=== PATIENT | female | born 1940 | race Caucasian/White ===

== ENCOUNTER → 2022-04-13 15:15 | Outpatient (BNVA) | payer MEDICARE, OTHER, SELFPAY | PROVIDERS: PCP Internal Medicine; Visit Provider Psychiatry & Neurology Psychiatry | DX: F33.41 Major depressive disorder, recurrent, in partial remission (principal); M54.9 Dorsalgia, unspecified | CPT/HCPCS: 90833; Q3014 ==

== ENCOUNTER → 2022-06-08 15:25 | Outpatient (BNVA) | payer MEDICARE, OTHER, SELFPAY | PROVIDERS: PCP Internal Medicine; Visit Provider Psychiatry & Neurology Psychiatry | DX: F33.41 Major depressive disorder, recurrent, in partial remission (principal); M51.16 Intervertebral disc disorders with radiculopathy, lumbar region | CPT/HCPCS: 90833; Q3014 ==

== ENCOUNTER → 2022-08-28 12:59 | Outpatient (BNVA) | payer MEDICARE, OTHER, SELFPAY | PROVIDERS: PCP Internal Medicine; Visit Provider Physician Assistant | DX: M48.061 Spinal stenosis, lumbar region without neurogenic claudication (principal) | CPT/HCPCS: 99212 ==

== ENCOUNTER → 2022-09-01 14:20 | Outpatient (BNVA) | payer MEDICARE, OTHER, SELFPAY | PROVIDERS: PCP Internal Medicine; Visit Provider Psychiatry & Neurology Psychiatry | DX: F32.A Depression, unspecified (principal) | CPT/HCPCS: 90833; Q3014 ==

== ENCOUNTER 2023-01-22 15:15 | Outpatient (AMB) | payer MEDICARE, OTHER, SELFPAY ==
--- NOTE | 2023-01-22 12:55 | A.OFFPSYCH_ITS ---
Intake Intake Visit Reasons: Depression Medication List - Last Reconciled 01/22/23 by Bashir Bee MD bupropion HCl 100 mg PO DAILY 90 days carvedilol 25 mg PO BID dexlansoprazole 30 mg PO DAILY diltiazem HCl 360 mg PO DAILY escitalopram oxalate 5 mg PO DAILY furosemide 20 mg PO BID levothyroxine 125 mcg PO DAILY rosuvastatin 10 mg PO DAILY tramadol 50 mg PO BID PRN HPI- Psychiatric Chief Complaint: Depression HPI Narrative: Pt has been doing quite well emotionally number of physical ailments neuropathy nellie lopez does have pulm htn but has felt quite supported by her community. Wishes someone to bring her to doctor's appointments she feels accepted by her rastafari which she had gone to an extended period of time and feels connected Levophed appreciated. She continues on low-dose escitalopram Wellbutrin she has not had a clinical depressive episode and has been managing emotionally her physical difficulties Past Psychiatric History: Past history of recurrent depression for many years. Has been generally stable for the past number of years use to see Dr. Newman for medication management and Dr. Oscar Llamas for psychotherapy Mental Status Exam Mental Status Exam Patient Appearance: Well Grooomed Patient Orientation: Person, Place, Time and Situation Level of Consciousness: Awake and Appropriate Patient Behavior: Appropriate Mood Description: Calm and Appropriate Affect Description: Calm and Appropriate Patient Cognition Impaired: No Ability to Follow Directions: Good Speech Pattern: Clear Memory Description: Intact Hallucinations: None Delusions: Not Present Thought Process: Intact and Goal Oriented Thought Content: positive for Goal Oriented, negative for Suicidal Ideation or negative for Homicidal Ideation Judgement: Good Judgement and Insight: Patient with much improved mood full affect Telehealth Telehealth Location of provider rendering services: practice address Location of patient: address on file Patient Identification confirmed using: Name, : Yes Telehealth method: video Patient verbally consented to treatment: Yes Patient verbally consented to billing insurance company: Yes Minutes spent on Phone/Video with Pt.: 24 Assessment and Plan Assessment & Plan (1) Major depressive disorder, recurrent episode, in partial remission: Status: Acute Code(s): F33.41 - Major depressive disorder, recurrent, in partial remission (2) Radiculopathy due to disorder of intervertebral disc of lumbar spine: Status: Acute Code(s): M51.16 - Intervertebral disc disorders with radiculopathy, lumbar region Plan Patient doing quite well full affect feels cared for able to enjoy things good motivation and energy no complaints of side effects feeling quite cared for by support system and rastafari. His dealing with pulmonary hypertension Medications: Refilled bupropion HCl 100 mg PO DAILY 90 days 90 tabs 1RF escitalopram oxalate 5 mg PO DAILY 90 tabs 1RF Counseling and coordination of Care Pt. Self Management counseling: Breathing Medication management counseling: Effectiveness Diagnosis and Prognosis Counseling: Accuracy of diagnosis, Impact of diagnosis on life functions and Adequacy of current interventions Details: I spent [] minutes reviewing the record, seeing the patient and documenting in the medical record. Counseling provided to the patient/caregiver as outlined below. Addressed patient/caregiver concerns regarding current medication regime including effective adherence. Addressed patient/caregiver concerns regarding diagnosis and prognosis including accuracy of diagnosis, prognosis over time, impact of diagnosis. Addressed patient/caregiver concerns regarding impact of recent stressors. [facility] Medical History (Updated 08/28/22 @ 13:32 by CAROLINA Benton) Atrial fibrillation and flutter Major depressive disorder, recurrent episode, in partial remission Social History: Patient lives alone she is retired dealing with multiple medical issues has sister supports from the rastafari /neighbor Substance History: none Trauma History: none Coding Level of Care Code Est Pt Level 4 (67230) Diagnoses Major depressive disorder, recurrent episode, in partial remission F33.41 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
== END 2023-01-22 15:15 | disposition home or self-care (01) ==
LOC: HO.HOP 15:15
PROVIDERS: PCP Internal Medicine; Visit Provider Psychiatry & Neurology Psychiatry
DX: F33.41 Major depressive disorder, recurrent, in partial remission (principal); M51.16 Intervertebral disc disorders with radiculopathy, lumbar region
CPT/HCPCS: 99214

== ENCOUNTER → 2023-01-22 15:15 | Outpatient (BNVA) | payer MEDICARE, OTHER, SELFPAY | PROVIDERS: PCP Internal Medicine; Visit Provider Psychiatry & Neurology Psychiatry | DX: F33.41 Major depressive disorder, recurrent, in partial remission (principal); M51.16 Intervertebral disc disorders with radiculopathy, lumbar region | CPT/HCPCS: 99212 ==

== ENCOUNTER 2023-06-22 13:36 | Outpatient (AMB) | payer MEDICARE, OTHER, SELFPAY ==
--- NOTE | 2023-06-22 13:47 | A.SPINEOV_ITS ---
Intake Intake Visit Reasons: lower back pain/ sx 07/2022 [facility] Intake Note: Ms. Victoria is here today c/o low back pain. S/p L3-4 Lumbar Laminotomy 08/05/22. 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 Rome for claudicating leg pain. She did well after the surgery was improving, but over the last few months she has developed a severe progressively worsening lower lumbar back ache. The pain goes across her lumbosacral junction region. It does not radiate down her legs. There is a component of buttock pain. She does not have any tingling or numbness in the legs. She has a very hard time even just walking down her hallway. She has not pursued any conservative treatment yet. Her exam is intact. I will order set of x-rays and subsequently an MRI so we can evaluate what is going on. I am wondering if she has not developed some degree of instability after the decompression, which is the reason to justify the x-rays and the MRI. We will see her back once the test is completed. Total amount of time spent in this visit was 20 minutes in discussion of symptoms, ordering imaging and subsequent plan of care Kamran Rome MD,PhD [facility] Orders: Orders XR lumbar spine 4V min Today M54.9 - Dorsalgia, unspecified MR lumbar spine wo con Today M54.9 - Dorsalgia, unspecified Coding Level of Care Code Est Pt Level 3 (43962) Diagnoses Back pain M54.9
== END 2023-06-22 14:08 | disposition home or self-care (01) ==
PROVIDERS: PCP Internal Medicine; Visit Provider Physician Assistant
DX: M54.9 Dorsalgia, unspecified (principal)
CPT/HCPCS: 99213

== ENCOUNTER 2023-06-22 13:36 | Outpatient (REF) | payer MEDICARE, OTHER, SELFPAY ==
--- NOTE | ~2023-06-22 | XR_ITS ---
EXAMINATION: XR LUMBOSACRAL SPINE WITH OBLIQUES CLINICAL INFORMATION: Dorsalgia. COMPARISON: None available. TECHNIQUE: AP and lateral (neutral, flexion and extension) views of the lumbosacral spine are submitted. FINDINGS: There is bony demineralization. Vertebral body heights are normal. There is mild posterior disc space narrowing at L2-L3. At L3-L4, there is marked disc space narrowing, with a 4 mm anterolisthesis. At L4-L5 and L5-S1, there is marked disc space narrowing, with vacuum disc phenomenon. No acute fracture or spondylolisthesis is seen. There is multi-level lumbar spondylosis and facet arthropathy. The paravertebral soft tissues are unremarkable. There are right abdominal surgical clips. There are aortoiliac atherosclerotic calcifications. XR/XR lumbar spine 4V min IMPRESSION: There is multi-level thoracolumbar degenerative disc disease, spondylosis and facet arthropathy. Degenerative disease is most pronounced extending from L3-L4 through L5-S1, where it is marked.
== END 2023-06-22 13:37 | disposition home or self-care (01) ==
LOC: HO.HOSX 13:36
PROVIDERS: PCP Internal Medicine; Visit Provider Physician Assistant
DX: M54.9 Dorsalgia, unspecified (principal)
CPT/HCPCS: 72110; 99212

== ENCOUNTER 2023-07-15 14:01 | Outpatient (AMB) | payer MEDICARE, OTHER, SELFPAY ==
--- NOTE | 2023-07-13 08:58 | HO.SPINEOV ---
Intake Intake Visit Reasons: MRI follow up Intake Note: Ms. Sutton is here today to F/u MRI. Help Desk Operator Required: No Assessment & Plan Assessment & Plan (1) Back pain: Code(s): M54.9 - Dorsalgia, unspecified Plan Mrs Sutton is back today to discuss her ongoing back pain. She had an MRI done at [facility] and is here to discuss the results today. Just to recap, we did an L3-4 decompression on her last year at [facility] with excellent results for her leg pain. She has had a progressive low back pain, which is actually more in the lumbosacral area when she is standing or sitting on a toilet. Getting up from a standing position is very difficult as well. She has no pain down her legs, no tingling or numbness. She tells me that in the morning when she 1st gets going she is okay but by the end of the day she is basically homebound. She can stand for 10 or 15 minutes maybe doing light chores or making dinner and then she will have to sit down or more correctly lay down to make the pain go away. She will have some pain at night when she is turning over but in general the supine position his optimum for her. She does not take any medications for the pain at this time because she takes a lot of medications for other things and really does not want to add more into it. Despite that though she is in a lot of discomfort. On my exam she is demonstrating good strength in the lower extremities but she is very slow to stand up. There is some tenderness over the lumbosacral junction. It seems well below where the incision is on her back. Maybe near the SI joints. She does have positive MARIA DEL CARMEN sign bilaterally I am able to reproduce the pain that she is experiencing during the day with this maneuver. Negative straight leg raise. I reviewed all of her imaging including MRI done at [facility] in 2021 as well as MRI done in 2023. I also reviewed her standing x-rays done here at [facility]. She has a severely collapsed disc at L3-4 with a grade 1 spondylolisthesis. This may be slightly worse than what it was last year before surgery but not significantly so. There is no instability on flexion-extension. She also has a very collapsed disc at L4-5 as well. There is no residual central canal stenosis noted. At this time given the nature and location of her pain I am not sure if I can tie it into the degenerative discs or if this is coming from maybe her SI joints. I was able to reproduce the exact pain that she has standing with MARIA DEL CARMEN testing. Because the surgery to fix the degenerative discs would involve spinal fusion, at her age this can be a significant undertaking and I think it would be meaningful to have her see Dr. Anders to see if he can help us localize the source of the pain. If he can do a series of trial injections in different areas and we can localize it then we can consider offering surgery with more confidence in a positive outcome. I will see her after she has had a chance to go through his evaluation and we can rediscuss options after that. Total amount of time spent in this visit was 20 minutes in discussion of symptoms, lumbar imaging results and subsequent plan of care Kamran Rome MD,PhD [facility] Orders: Referrals Physiatry Referral M54.9 - Dorsalgia, unspecified Coding Level of Care Code Est Pt Level 3 (66892) Diagnoses Back pain M54.9
== END 2023-07-15 16:09 | disposition home or self-care (01) ==
PROVIDERS: PCP Internal Medicine; Visit Provider Physician Assistant
DX: M54.9 Dorsalgia, unspecified (principal)
CPT/HCPCS: 99213

== ENCOUNTER → 2023-07-15 14:01 | Outpatient (BNVA) | payer MEDICARE, OTHER, SELFPAY | PROVIDERS: PCP Internal Medicine; Visit Provider Physician Assistant | DX: M54.9 Dorsalgia, unspecified (principal) | CPT/HCPCS: 99212 ==

== ENCOUNTER 2023-07-28 16:54 | Outpatient (AMB) | payer MEDICARE, OTHER, SELFPAY ==
--- NOTE | 2023-07-28 15:33 | A.OFFPSYCH_ITS ---
Intake Intake Visit Reasons: Depression Medication List - Last Reconciled 07/28/23 by Bashir Bee MD bupropion HCl 100 mg PO DAILY 90 days carvedilol 25 mg PO BID dexlansoprazole 30 mg PO DAILY diltiazem HCl 360 mg PO DAILY escitalopram oxalate 5 mg PO DAILY furosemide 20 mg PO BID levothyroxine 125 mcg PO DAILY rosuvastatin 10 mg PO DAILY tramadol 50 mg PO BID PRN HPI- Psychiatric Chief Complaint: Depression HPI Narrative: Pt has a lot of support with her community has a lot of support OMEGA MORGAN pt may need neuro surg sec to pain had recent mri the pain is getting to pt has more limited fx more difficult will be seeing dr tsai has chronic diarrhea ? unclear reasons dealing with chronic medical prob;ems Past Psychiatric History: Past history of recurrent depression for many years. Has been generally stable for the past number of years use to see Dr. Newman for medication management and Dr. Oscar Llamas for psychotherapy Mental Status Exam Mental Status Exam Patient Appearance: Well Grooomed Patient Orientation: Person, Place, Time and Situation Level of Consciousness: Awake and Appropriate Patient Behavior: Appropriate Mood Description: Calm and Appropriate Affect Description: Calm and Appropriate Patient Cognition Impaired: No Ability to Follow Directions: Good Speech Pattern: Clear Memory Description: Intact Hallucinations: None Delusions: Not Present Thought Process: Intact and Goal Oriented Thought Content: positive for Goal Oriented, negative for Suicidal Ideation or negative for Homicidal Ideation Judgement: Good Judgement and Insight: Patient doing quite well future oriented feels quite blessed by her denominational [facility] who helps take her to appointments and other things that she needs help with Telehealth Telehealth Location of provider rendering services: practice address Location of patient: address on file Patient Identification confirmed using: Name, : Yes Telehealth method: video Patient verbally consented to treatment: Yes Patient verbally consented to billing insurance company: Yes Minutes spent on Phone/Video with Pt.: 24 Assessment and Plan Assessment & Plan (1) Major depression, recurrent, full remission: Status: Acute Code(s): F33.42 - Major depressive disorder, recurrent, in full remission (2) Radiculopathy due to disorder of intervertebral disc of lumbar spine: Status: Acute Code(s): M51.16 - Intervertebral disc disorders with radiculopathy, lumbar region (3) Spondylolisthesis, lumbar region: Status: Acute Code(s): M43.16 - Spondylolisthesis, lumbar region Plan Patient generally doing well on current regimen mood stable on Wellbutrin and escitalopram Feels quite supported by her community and this has been helping her stay stable psychologically grateful future oriented feels blessed by her community continue plan of care Medications: Refilled bupropion HCl 100 mg PO DAILY 90 tabs 1RF 90 days escitalopram oxalate 5 mg PO DAILY 90 tabs 1RF Counseling and coordination of Care Details-Self Mgmt counseling: Patient has some appropriate concerns regarding her difficulty functioning she does feel quite taking care of by her spiritual community and this is quite elevating and nurturing for the patient Diagnosis and Prognosis Counseling: Prognosis over time and Adequacy of current interventions Details-Diagnosis/Prognosis counseling: Patient generally doing quite well despite physical stress we discussed alternatives she wished to continue on antidepressants at present would not want to risk of relapse she is doing quite well interpersonally Details: I spent [38] minutes reviewing the record, seeing the patient and documenting in the medical record. Counseling provided to the patient/caregiver as outlined below. Addressed patient/caregiver concerns regarding current medication regime including effective adherence. Addressed patient/caregiver concerns regarding diagnosis and prognosis including accuracy of diagnosis, prognosis over time, impact of diagnosis. Addressed patient/caregiver concerns regarding impact of recent stressors. [facility] Medical History (Updated 08/15/23 @ 19:28 by Bashir Bee MD) Atrial fibrillation and flutter Major depressive disorder, recurrent episode, in partial remission Social History: Patient lives alone she is retired dealing with multiple medical issues has sister supports from the denominational /neighbor Substance History: none Trauma History: none Coding Level of Care Code Tele Est Pt Level 4 (81915) Diagnoses Major depression, recurrent, full remission F33.42 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 Spondylolisthesis, lumbar region M43.16
== END 2023-07-28 16:55 | disposition home or self-care (01) ==
LOC: HO.HOP 16:54
PROVIDERS: PCP Internal Medicine; Visit Provider Psychiatry & Neurology Psychiatry
DX: F33.42 Major depressive disorder, recurrent, in full remission (principal); M51.16 Intervertebral disc disorders with radiculopathy, lumbar region; M43.16 Spondylolisthesis, lumbar region
CPT/HCPCS: 99214

== ENCOUNTER → 2023-07-28 16:54 | Outpatient (BNVA) | payer MEDICARE, OTHER, SELFPAY | PROVIDERS: PCP Internal Medicine; Visit Provider Psychiatry & Neurology Psychiatry ==

== ENCOUNTER 2023-08-11 11:23 | Outpatient (AMB) | payer MEDICARE, OTHER, SELFPAY ==
--- NOTE | 2023-08-11 11:31 | HO.SPINEOV ---
Intake Intake Visit Reasons: discuss sx Intake Note: Ms. Sutton is here today to discuss Sx Metallurgy Laboratory Technician Required: No Assessment & Plan Assessment & Plan (1) Spondylolisthesis, lumbar region: Code(s): M43.16 - Spondylolisthesis, lumbar region (2) Lumbar stenosis: Code(s): M48.061 - Spinal stenosis, lumbar region without neurogenic claudication Plan Dear colleague, On 3 12/04/2023, I saw for preoperative visit Doreen Sutton. She has a 3-year-old female that is suffering from debilitating neurogenic claudication with the back pain is more pronounced than radicular symptoms. Imaging reviews a grade 2 L3-4 spondylolisthesis and complete disc collapse of L3-4 and L4-5. We went over surgical options. I offered her to minimally invasive approaches, the 1st being an oblique lumbar interbody fusion L3-4 and L4-5 and the 2nd 1 being a transkambin approach. I am leaning more towards an oblique lumbar interbody fusion due to the fact she is 83 and most likely her bone quality is less optimal although a bone scan showed no osteopenia. We described the pros and cons and she wants to proceed. She is tentatively scheduled for 10/12/2023. She will get preoperative clearance from her PCP and migratory game bird biologist. I spent 40 minutes in his consult discussing the surgical plan on the hand of a model and imaging. Jonh Rome MD, PhD Spine Fellowship Trained Neurosurgeon Director, [facility] Coding Level of Care Code Est Pt Level 5 (04460) Diagnoses Spondylolisthesis, lumbar region M43.16 Lumbar stenosis M48.061
== END 2023-08-11 12:21 | disposition home or self-care (01) ==
PROVIDERS: PCP Internal Medicine; Visit Provider Neurological Surgery
DX: M43.16 Spondylolisthesis, lumbar region (principal); M48.061 Spinal stenosis, lumbar region without neurogenic claudication
CPT/HCPCS: 99215

== ENCOUNTER → 2023-08-11 11:23 | Outpatient (BNVA) | payer MEDICARE, OTHER, SELFPAY | PROVIDERS: PCP Internal Medicine; Visit Provider Neurological Surgery | DX: M43.16 Spondylolisthesis, lumbar region (principal); M48.061 Spinal stenosis, lumbar region without neurogenic claudication | CPT/HCPCS: 99212 ==

== ENCOUNTER 2023-09-08 15:10 | Outpatient (AMB) | payer MEDICARE, OTHER, SELFPAY ==
--- NOTE | 2023-09-08 15:41 | HO.SPINEOV ---
Intake Visit Reasons: more questions about sx Intake Note: Ms. Sutton is here because she has more questions about surgery. Director Corporate Communications Required: No Assessment & Plan Assessment & Plan (1) Spondylolisthesis, lumbar region: Code(s): M43.16 - Spondylolisthesis, lumbar region Category: Medical Plan Dear colleague, On 09/08/2023, I saw for preoperative visit Doreen Sutton. She is scheduled to undergo an L3-4 and L4-5 oblique lumbar interbody fusion. She comes into the office with additional questions about the surgery. We made sure that she was cleared preoperatively by the primer inspector. All questions were answered and the patient wrote her answers down. I spent 30 minutes in his consult. Thank you for allowing me take care of your patient. Jonh Rome MD, PhD Spine Fellowship Trained Neurosurgeon Director, [facility] Coding Level of Care Code Est Pt Level 3 (71010) Diagnoses Spondylolisthesis, lumbar region M43.16
== END 2023-09-08 16:32 | disposition home or self-care (01) ==
PROVIDERS: PCP Internal Medicine; Visit Provider Neurological Surgery
DX: M43.16 Spondylolisthesis, lumbar region (principal)
CPT/HCPCS: 99213

== ENCOUNTER → 2023-09-08 15:10 | Outpatient (BNVA) | payer MEDICARE, OTHER, SELFPAY | PROVIDERS: PCP Internal Medicine; Visit Provider Neurological Surgery | DX: M43.16 Spondylolisthesis, lumbar region (principal) | CPT/HCPCS: 99212 ==

== ENCOUNTER 2023-10-12 06:03 | Inpatient (IN) | payer MEDICARE, OTHER, SELFPAY ==
[2023-09-28 10:46] VITALS: BP 147/65; PULSE 62; RESP 18; O2SAT 96; BMI 35.1
--- NOTE | 2023-09-28 11:04 | P.CONAN_ITS ---
Documented by User: Alyssa Burrows NP 10/08/23 12:31 HPI - Anesthesia Eval Consult details Narrative: 83yo F for ?L3-4,L4-5 Oblique Lumbar Interbody Fusion Medically cleared by [facility] preop practice Follows cardiology: pacer in situ for SSS, CAD, [place] with stent 2011, PAF s/p w atchman 2021. Last seen in office 07/27/23, stable without any changes to treatment, asymptomatic, routine 6 month f/u. Follows Renal for CKD St 3. Last office visit 06/2023, stable with obs only Follows [facility] pulmo for pulmonary htn indeterminate etiology, sleep apena No recent illness No CP. CARPIO with walking ~100 yards is at baseline [facility] Active Problems Active Problems: All Active Problems Major depression, recurrent, full remission (Acute) Spondylolisthesis, lumbar region (Acute) Back pain (Acute) Lumbar stenosis (Acute) Radiculopathy due to disorder of intervertebral disc of lumbar spine (Acute) Major depressive disorder, recurrent episode, in partial remission (Acute) Past Medical History Medical History History of cardioversion Diarrhea SOB (shortness of breath) IBS (irritable bowel syndrome) Arthritis Obesity Depression GERD (gastroesophageal reflux disease) Thyroid disease Hyperlipidemia HTN (hypertension) Pulmonary hypertension Sleep apnea Opacity of lung on imaging study Hx of cardiac pacemaker Sick sinus syndrome Bradycardia Atrial tachycardia Presence of Watchman left atrial appendage closure device Myocardial infarction CAD (coronary artery disease) Atrial fibrillation and flutter Major depressive disorder, recurrent episode, in partial remission Family History Family history of problems with anesthesia: No Surgical History Surgical History H/O colonoscopy History of hemorrhoidectomy Hx of total knee replacement Hx of cataract extraction Hx of cholecystectomy Hx of carpal tunnel repair History of back surgery S/P placement of cardiac pacemaker H/O cardiac radiofrequency ablation History of coronary artery stent placement History of Problems with Anesthesia: No Social History Social History Are you a primary manager medicare marketing to a significant other at home: No Do you presently have visiting nurse or other home services: No Patient Tobacco Use Status: Former Tobacco user Use of substances other than those prescribed or required for medical reasons: No Have you been hit, kicked, punched, or otherwise hurt by someone within the past year? If so, by whom?: No Are you DNR?: No Advance Directives: No Advance Directives Information Provided: No Advance Directives on File: No Recently lost weight without trying: No Eating poorly because of decreased appetite: No Nutrition Risks: No Nutritional Risk Patient : No : No Poor oral hygiene: No Meds Allergies Allergy/AdvReac Type Severity Reaction Status Date / Time codeine Allergy Unconscious Verified 10/12/23 06:06 niacin Allergy Redness of Verified 10/12/23 06:06 Skin Sulfa (Sulfonamide Allergy Itching Verified 10/12/23 06:06 Antibiotics) NSAIDS (Non-Steroidal AdvReac Unknown Verified 10/12/23 07:05 Anti-Inflamma Home Medications ?Medication ?Instructions ?Recorded ?Confirmed ?Last Taken ?Type carvedilol 25 mg tablet 25 mg PO BID 04/13/22 09/28/23 10/12/23 History dexlansoprazole 30 mg 30 mg PO DAILY 04/13/22 09/28/23 10/12/23 History capsule,biphase delayed release diltiazem HCl 360 mg 360 mg PO DAILY 04/13/22 09/28/23 Unknown History capsule,extended release 24 hr levothyroxine 125 mcg tablet 125 mcg PO DAILY 04/13/22 09/28/23 10/12/23 History rosuvastatin 10 mg tablet 10 mg PO BEDTIME 04/13/22 09/28/23 Unknown History furosemide 20 mg tablet 20 mg PO DAILY 09/01/22 09/28/23 Unknown History aspirin 81 mg tablet,delayed 81 mg PO BEDTIME 09/27/23 09/28/23 10/06/23 History release calcium carbonate 600 mg-vitamin 2 cap PO BEDTIME 09/27/23 09/28/23 Unknown History D3 10 mcg (400 unit) capsule diphenoxylate-atropine 2.5 2 tab PO QID PRN Diarrhea 09/27/23 09/28/23 Unknown History mg-0.025 mg tablet meclizine 25 mg tablet 25 mg PO DAILY PRN Dizziness Or 09/27/23 09/27/23 Unknown History Vertigo nitroglycerin 0.3 mg sublingual 0.3 mg sublingual Q5M PRN Chest 09/27/23 09/27/23 Unknown History tablet Pain vit A 300 mcg-C 200 mg-E 27 1 tab PO DAILY 09/27/23 09/27/23 Unknown History mg-lutein 2 mg and minerals tablet (Ocuvite with Lutein) acetaminophen 650 mg 1,300 mg PO Q12H 09/28/23 09/28/23 Unknown History tablet,extended release (Arthritis Pain Relief (acetaminophen) ER) amoxicillin 500 mg capsule 2,000 mg PO ONCE 09/28/23 09/28/23 Unknown History lutein 25 mg-zeaxanthin 5 mg 1 cap PO DAILY 09/28/23 09/28/23 10/12/23 History capsule Exam Height,Weight and Vital Signs: Height 5 ft 2 in Weight 87.09 kg Last Vital Signs Pulse 62 09/28/23 10:46 Resp 18 09/28/23 10:46 BP 147/65 H 09/28/23 10:46 Pulse Ox 96 09/28/23 10:46 O2 Del Method Room Air 09/28/23 10:46 Pertinent Lab Results Pertinent Lab Results: Lab Results 09/28/23 09/28/23 Range/Units 11:50 11:52 WBC 6.0 (4.8-10.8) X10*3/uL RBC 4.16 L (4.20-5.50) X10*6/uL Hgb 12.7 (12.0-16.0) g/dl Hct 38.0 (37.0-47.0) % MCV 91.3 (80.0-98.0) fL MCH 30.5 (27.0-33.0) pg MCHC 33.4 (31.0-35.0) g/dl RDW 14.6 (11.0-16.0) % Plt Count 261 (160-400) X10*3/uL MPV 9.8 (9.4-12.3) fL Absolute Nucleated RBC 0.000 (0.0-0.012) X10*3/uL Nucleated RBC % (auto) 0.0 (0.0-0.2) /100WBC Sodium 142 (135-145) mmol/L Potassium 4.5 (3.3-5.1) mmol/L Chloride 108 (96-108) mmol/L Carbon Dioxide 24 (22-29) mmol/L Anion Gap 15 (12-20) BUN 23 H (9-16) mg/dL Creatinine 0.93 (0.5-1.4) mg/dL Estim Creat Clear Calc 46.9 Estimated GFR 58 Random Glucose 106 (60-115) mg/dL Calcium 9.7 (8.4-10.2) mg/dL Blood Type A Positive Antibody Screen NEGATIVE Narrative Narrative: EKG 07/2023 Afib with Freq V-paced complexes Low volt QRS Pacer interrog R heart cath 2022 report on clearance PFT 2020 report on clearance ECHO 2022 Nml LA Conc hypertrophic LV. Nml regional wall motion. EF 65%. Pt with signif diastolic dysfunction with elevated LA filling presure Pacer lead in right heart Nml RV size and systolic function Dilated RA Trileaflet aorta valve, mild thickening, mild stenosis. No insufficiency Moderate mitral insufficiency Severe tricuspid insufficiency with evidence of significant pulmo htn Pulmo insufficiency is mild C/w 2020 PASP is markedly increased PASP from 50-60 to >70 Airway Mallampati Class: II TM Dist: >3cm Neck ROM: Full Loose/Missing/Broken Teeth: No ([place] x 1) Heart: RRR +M Lungs: CTAB Assessment and Plan Assessment Anesthesia Assessment: Anesthesia Plan Discussed (Discussed increased risk r/t pulmo htn ) and PAT Visit Final Anesthetic Review Family History of Problems with Anesthesia: No History of Problems with Anesthesia: No Documented by User: María Ritchie MD 10/12/23 08:18 [facility] Past Medical History Medical History History of cardioversion Diarrhea SOB (shortness of breath) IBS (irritable bowel syndrome) Arthritis Obesity Depression GERD (gastroesophageal reflux disease) Thyroid disease Hyperlipidemia HTN (hypertension) Pulmonary hypertension Sleep apnea Opacity of lung on imaging study Hx of cardiac pacemaker Sick sinus syndrome Bradycardia Atrial tachycardia Presence of Watchman left atrial appendage closure device Myocardial infarction CAD (coronary artery disease) Atrial fibrillation and flutter Major depressive disorder, recurrent episode, in partial remission Surgical History Surgical History H/O colonoscopy History of hemorrhoidectomy Hx of total knee replacement Hx of cataract extraction Hx of cholecystectomy Hx of carpal tunnel repair History of back surgery S/P placement of cardiac pacemaker H/O cardiac radiofrequency ablation History of coronary artery stent placement Social History Social History Are you a primary manager medicare marketing to a significant other at home: No Do you presently have visiting nurse or other home services: No Patient Tobacco Use Status: Former Tobacco user Use of substances other than those prescribed or required for medical reasons: No Have you been hit, kicked, punched, or otherwise hurt by someone within the past year? If so, by whom?: No Are you DNR?: No Advance Directives: No Advance Directives Information Provided: No Advance Directives on File: No Recently lost weight without trying: No Eating poorly because of decreased appetite: No Nutrition Risks: No Nutritional Risk Patient : No : No Poor oral hygiene: No Meds Allergies Allergy/AdvReac Type Severity Reaction Status Date / Time codeine Allergy Unconscious Verified 10/12/23 06:06 niacin Allergy Redness of Verified 10/12/23 06:06 Skin Sulfa (Sulfonamide Allergy Itching Verified 10/12/23 06:06 Antibiotics) NSAIDS (Non-Steroidal AdvReac Unknown Verified 10/12/23 07:05 Anti-Inflamma Home Medications ?Medication ?Instructions ?Recorded ?Confirmed ?Last Taken ?Type carvedilol 25 mg tablet 25 mg PO BID 04/13/22 09/28/23 10/12/23 History dexlansoprazole 30 mg 30 mg PO DAILY 04/13/22 09/28/23 10/12/23 History capsule,biphase delayed release diltiazem HCl 360 mg 360 mg PO DAILY 04/13/22 09/28/23 Unknown History capsule,extended release 24 hr levothyroxine 125 mcg tablet 125 mcg PO DAILY 04/13/22 09/28/23 10/12/23 History rosuvastatin 10 mg tablet 10 mg PO BEDTIME 04/13/22 09/28/23 Unknown History furosemide 20 mg tablet 20 mg PO DAILY 09/01/22 09/28/23 Unknown History aspirin 81 mg tablet,delayed 81 mg PO BEDTIME 09/27/23 09/28/23 10/06/23 History release calcium carbonate 600 mg-vitamin 2 cap PO BEDTIME 09/27/23 09/28/23 Unknown History D3 10 mcg (400 unit) capsule diphenoxylate-atropine 2.5 2 tab PO QID PRN Diarrhea 09/27/23 09/28/23 Unknown History mg-0.025 mg tablet meclizine 25 mg tablet 25 mg PO DAILY PRN Dizziness Or 09/27/23 09/27/23 Unknown History Vertigo nitroglycerin 0.3 mg sublingual 0.3 mg sublingual Q5M PRN Chest 09/27/23 09/27/23 Unknown History tablet Pain vit A 300 mcg-C 200 mg-E 27 1 tab PO DAILY 09/27/23 09/27/23 Unknown History mg-lutein 2 mg and minerals tablet (Ocuvite with Lutein) acetaminophen 650 mg 1,300 mg PO Q12H 09/28/23 09/28/23 Unknown History tablet,extended release (Arthritis Pain Relief (acetaminophen) ER) amoxicillin 500 mg capsule 2,000 mg PO ONCE 09/28/23 09/28/23 Unknown History lutein 25 mg-zeaxanthin 5 mg 1 cap PO DAILY 09/28/23 09/28/23 10/12/23 History capsule Exam Airway Mallampati Class: III TM Dist: >3cm Assessment and Plan Final Anesthetic Review NPO: Yes ASA Class: IV Final Preanesthetic Review: Meds/Allgs Chart Reviewed, Consent Obtained/Reviewed and Anes Risks/Benef Reviewed Patient Risk: High Procedure Risk: Intermediate Anesthetic Plan Anesthetic Plan: GA Disposition: Standard PACU
[2023-09-28 12:12] LABS: Hemoglobin 12.7 g/dl (12.0-16.0); Mean Corpuscular HGB Conc 33.4 g/dl (31.0-35.0); Mean Corpuscular Hemoglobin 30.5 pg (27.0-33.0); Mean Corpuscular Volume 91.3 fL (80.0-98.0); Mean Platelet Volume 9.8 fL (9.4-12.3); Platelet Count 261 X10*3/uL (160-400); Red Blood Count 4.16 X10*6/uL (4.20-5.50); Red Cell Distribution Width 14.6 % (11.0-16.0)
[2023-09-28 12:51] LABS: Anion Gap 15 (12-20); Blood Urea Nitrogen 23 mg/dL (9-16); Calcium 9.7 mg/dL (8.4-10.2); Carbon Dioxide 24 mmol/L (22-29); Chloride 108 mmol/L (96-108); Creatinine Clr Calc Pharmacy 46.9; Estimated Glomerular Filt Rate 58; Glucose Random 106 mg/dL (60-115); Potassium 4.5 mmol/L (3.3-5.1); Sodium 142 mmol/L (135-145)
[2023-10-12] VITALS (15 sets, daily range): BP systolic 109–152; BP diastolic 41–57; PULSE 58–63; RESP 16–20; TEMP 36–36.8; O2SAT 91–100; BMI 34.4
--- NOTE | ~2023-10-12 | FL_ITS ---
EXAMINATION: XR FLUOROSCOPY WITH IMAGES CLINICAL INFORMATION: L3-L4, L4-L5 OLIF. COMPARISON: Lumbar spine radiographs 06/22/2023. TECHNIQUE: Fluoroscopy Supervised By: Dr. Jonh Rome. Fluoroscopy Time: 72.1 seconds. Cumulative Dose: 89.028 mGy. DAP: 27.109 Gy-cm2. Images: 4. FINDINGS: Imaging demonstrates sequential steps of L3-L4, L4-L5 OLIF with pedicular screws and vertical stabilization rods from L3 through L5 with interbody devices. FL/FL guidance in OR IMPRESSION: Fluoroscopy and spot films provided for lumbar spine surgery.
--- OUTSIDE RECORDS SUMMARY | 2023-10-12 06:13 | XMS_ITS | Continuity of Care Document ---
Author Organization [facility] Address [address] [place] [id number] Care Team Providers Care Display Designer Name Role Phone Humera Mcgowan MD Primary Care Physician [place] [facility] [place] 05/06[place]23 - 06/05/23 [facility] [address] [place] [id number]- Allergies, Adverse Reactions, Alerts Substance Reaction Severity Status codeine fainting Active sulfADIAZINE rash Active niacin rash Active Immunizations Given and Recorded Vaccine Date Status Refusal Reason influenza virus vaccine, inactivated 03/10/23 Give n influenza virus vaccine, inactivated 02/16/22 Ulices rded [id number] 12y+ bivalent booster vax 02/20/22 Recorded SARS-CoV-2 mRNA ([id number]) vax 08/27/21 Recorded tetanus/diphtheria/pertussis, acel(Tdap) 03/25/21 Recorded tetanus/diphtheria/pertussis, acel(Tdap) 03/25/18 Recorded Influenza Virus Vaccine (oldterm) 03/11/21 Recorde d Influenza Virus Vaccine (oldterm) 02/15/20 Recorde d Influenza Virus Vaccine (oldterm) 02/21/18 Recorde d Influenza Virus Vaccine (oldterm) 02/16/17 Recorde d Influenza Virus Vaccine (oldterm) 02/16/17 Recorde d Influenza Virus Vaccine (oldterm) 03/05/14 Recorde d Influenza Virus Vaccine (oldterm) 04/19/12 Recorde d SARS-CoV-2 (COVID-19) mRNA BNT-162b2 vac 02/13/21 Recorded SARS-CoV-2 (COVID-19) mRNA BNT-162b2 vac 11/20/20 Recorded SARS-CoV-2 (COVID-19) mRNA BNT-162b2 vac 07/14/20 Recorded SARS-CoV-2 (COVID-19) mRNA BNT-162b2 vac 06/23/20 Recorded Zoster Vaccine Live 08/12/18 Recorded Zoster Vaccine Live 06/18/08 Recorded zoster vaccine, inactivated 06/08/18 Recorded pneumococcal 13-valent vaccine 03/13/15 Recorded pneumococcal 23-valent vaccine 03/07/14 Recorded pneumococcal 23-valent vaccine 03/12/12 Given pneumococcal 23-valent vaccine 01/30/03 Recorded Measles/Mumps/Rubella Virus Vaccine 12/06/12 Recor ded Measles/Mumps/Rubella Virus Vaccine 11/04/12 Recor ded tetanus-diphtheria toxoids (Td) 03/20/08 Recorded Medications amoxicillin 500 mg oral capsule 4 capsule = 2,000 mg, By Mouth, Once, given 1 hour prior to the procedure, # 4 capsule, 0 Refills, Soft Stop, 04/07/22 12:03:00 EST, [facility] #[id number], Partial fill upon patient request if the prescription is for a schedule II opioid drug.,... Start Date: 04/07/22 Status: Ordered aspirin 81 mg oral capsule 1 capsule = 81 mg, By Mouth, Every 4 hours, 0 Refills, Maintenance, 12/03/21 12:32:00 EDT, Partial fill upon patient request if the prescription is for a schedule II opioid drug. Start Date: 12/03/21 Status: Ordered buPROPion 100 mg/12 hours (SR) oral tablet, extended release 1 tablet = 100 mg, By Mouth, Daily, # 60 tablet, 0 Refills, Maintenance, 04/27/19 22:05:45 EST, ER Tablet Start Date: 04/27/19 Status: Ordered carvedilol 25 mg oral tablet 1, tablet, By Mouth, 2 times a day, # 180 tablet, Refills 1, Maintenance, 12/11/22 19:30:00 EDT, Route to Pharmacy Electronically, [facility] #[id number], 158, cm, 08/27/22 15:01:00 EDT, Height Start Date: 12/11/22 Status: Ordered Sargent Calcium with Vitamin D 500 IU By Mouth, 2 times a day, 0 Refills, Maintenance, 04/27/19 22:06:27 EST Start Date: 04/27/19 Status: Ordered dexlansoprazole 30 mg oral delayed release capsule 1 capsule, By Mouth, Daily, # 90 capsule, 1 Refills, Maintenance, 02/20/23 14:43:00 EDT, [facility] #[id number], 158, cm, 01/22/23 16:01:00 EDT, Height Start Date: 02/20/23 Status: Ordered DilTIAZem (Eqv-Cardizem CD) 360 mg/24 hours oral capsule, extended release 1 capsule, By Mouth, Daily, # 90 capsule, 1 Refills, Maintenance, 05/23/23 14:04:00 EST, [facility] #[id number], 157.48, cm, 04/15/23 8:55:00 EST, Height, 86.8, kg, 04/09/23 12:32:00 EST, Dry Weight Start Date: 05/23/23 Status: Ordered escitalopram 5 mg oral tablet 1 tablet = 5 mg, By Mouth, Daily, # 30 tablet, 0 Refills, Maintenance, 12/02/19 17:32:00 EDT, Tablet Start Date: 12/02/19 Status: Ordered furosemide 20 mg oral tablet 20 mg, 1, tablet, By Mouth, 2 times a day, # 90 tablet, Refills 0, Maintenance, 08/27/22 15:04:00 EDT, Partial fill upon patient request if the prescription is for a schedule II opioid drug. Start Date: 08/27/22 Status: Ordered levothyroxine 125 mcg (0.125 mg) oral tablet 1 tablet = 125 mcg, By Mouth, Daily, # 90 tablet, 2 Refills, Maintenance, 12/30/22 6:22:00 EDT, Tablet, [facility] #[id number], Partial fill upon patient request if the prescription is for a schedule II opioid drug., 158, cm, 08/27/22 15:01:00 ED... Start Date: 12/30/22 Status: Ordered Lomotil 0.025 mg-2.5 mg oral tablet 1, tablet, By Mouth, 4 times a day, PRN, # 360 tablet, Refills 3, Tot. Refills 3, Maintenance, for loose stool, 04/15/23 9:28:00 EST, Print Requisition, Tablet Start Date: 04/15/23 Stop Date: 04/09/24 Status: Ordered LSO for SI Joint Dysfunction M53.3 LSO for SI Joint Dysfunction M53.3, See Instructions, # 1 each, Refills 0, Tot. Refills 0, Maintenance, for home use, 09/19/20 7:54:00 EDT, Supply Start Date: 09/19/20 Status: Ordered Lutein = 25 mg, By Mouth, Daily, 0 Refills, Maintenance, 04/27/19 22:06:17 EST Start Date: 04/27/19 Status: Ordered nitroglycerin 0.3 mg sublingual tablet 1 tablet = 0.3 mg, Sublingual, Every 5 minutes, PRN for chest pain, If chest pain not relieved in 5minutes after first dose, seek immediate medical attention must be dispensed & stored in original containers not to exceed 3 doses/15 min--if pain pe... Start Date: 03/11/22 Status: Ordered rosuvastatin 10 mg oral tablet 1 tablet, By Mouth, Daily, # 90 tablet, 1 Refills, Maintenance, 05/23/23 14:04:00 EST, [facility] #[id number], 157.48, cm, 04/15/23 8:55:00 EST, Height, 86.8, kg, 04/09/23 12:32:00 EST, Dry Weight Start Date: 05/23/23 Status: Ordered Problem List Condition Confirmation Course Effective Dates Status H ealth Status Informant Lumbar facet arthropathy Confirmed Active Benign recurrent vertigo Confirmed Active 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 pacemaker recipient Confirmed Active CTS (carpal tunnel syndrome) s/p release 2023 Confirmed Active Diastolic CHF, chronic Confirmed Active CAD (coronary artery disease) Confirmed Active GERD (gastroesophageal reflux disease) Confirmed Active History of osteoporosis 1 Confirmed Active Irritable bowel syndrome (IBS) 2 Confirmed Active Anxiety and depression Confirmed Active Combined hyperlipidemia Confirmed Active ELIZABETH (obstructive sleep apnea) 3 Confirmed Active DJD (degenerative joint disease) of knee Confirmed Active Sacroiliac dysfunction Confirmed Active Senile purpura Confirmed Active Severe obesity (BMI 35.0-39.9) with comorbidity Confirmed Active Neuroforaminal stenosis of lumbar spine Confirmed Active 1last DEXA 06/2022 improved to osteopenia 2With diarrhea. follows with GI 3on CPAP Social History Social History Type Response Smoking Status Former smoker entered on: 01/24/14 Sex Patient Care team information Care Team Personnel Name: Lacey FELIX, Fatou Position: [facility] RN Member Role: Primary Care Nurse Name: Abbey Taylor RN Position: [facility] AMB Nurse Member Role: Primary Care Nurse Name: Dana Moreno RN Position: [facility] SN RN Member Role: Primary Care Nurse Name: Ashlie Moreno Position: [facility] Outreach Member Role: [employer] Consult[employer] Physician Name: Humera Mcgowan MD Position: [facility] Physician - Primary Care Member Role: PCP Address: Address: [facility] [place] [address]- Name: Cecilia Stephens RN Position: [facility] SN RN Member Role: Primary Care Nurse Name: Zoey Garcia Position: [facility] MA Member Role: Primary Care Nurse Name: Alyssa Bridges RN Position: [facility] RN Member Role: Primary Care Nurse Care Team Related Persons Name: MERCEDANGEL LAW Address: [address] [place] [address] Name: DAVID FITZPATRICK Address: home [address] [place] [address] Name: LENIN MCINTYRE Address: [place] [address]
--- OUTSIDE RECORDS SUMMARY | 2023-10-12 06:13 | XMS_ITS | Continuity of Care Document ---
Author Organization [facility] Address [address] [place] [address]- Care Team Providers Care Hydramatic Mechanic Name Role Phone Humera Mcgowan MD Primary Care Physician [phone] Encounter [facility] Date(s): 04/15/23 - 05/15/23 [facility] [address] [place], [place] [id number]- Attending Physician: Sinan Albert Admitting Physician: Sinan Albert Referring Physician: Sinan Albert Allergies, Adverse Reactions, Alerts Substance Reaction Severity Status codeine fainting Active sulfADIAZINE rash Active niacin rash Active Immunizations Given and Recorded Vaccine Date Status Refusal Reason influenza virus vaccine, inactivated 03/10/23 Give n influenza virus vaccine, inactivated 02/16/22 Ulices rded [id number] 12y+ bivalent booster vax 02/20/22 Recorded SARS-CoV-2 mRNA (urdpqen-rkej-yufca) vax 08/27/21 Recorded tetanus/diphtheria/pertussis, acel(Tdap) 03/25/21 Recorded [...] 0 Refills, Soft Stop, 04/07/22 12:03:00 EST, [facility] #[id number], Partial fill upon patient request if the prescription is for a schedule II opioid drug.,... Start Date: 04/07/22 Status: Ordered aspirin 81 mg oral capsule 1 capsule = 81 mg, By Mouth, Every 4 hours, 0 Refills, Maintenance, 12/03/21 12:32:00 EDT, Partial fill upon patient request if the prescription is for a schedule II opioid drug. Start Date: 12/03/21 Status: Ordered budesonide 3 mg oral delayed release capsule 3 capsule = 9 mg, By Mouth, Daily in AM, # 180 capsule, 0 Refills, Maintenance, 04/15/23 9:24:00 EST, CR Capsule, [facility] #[id number], Partial fill upon patient request if the prescription isfor a schedule II opioid drug., 157.48, cm, ... Start Date: 04/15/23 Status: Ordered buPROPion 100 mg/12 hours (SR) oral tablet, extended release 1 tablet = 100 mg, By Mouth, Daily, # 60 tablet, 0 Refills, Maintenance, 04/27/19 22:05:45 EST, ER Tablet Start Date: 04/27/19 Status: Ordered carvedilol 25 mg oral tablet 1, tablet, By Mouth, 2 times a day, # 180 tablet, Refills 1, Maintenance, 12/11/22 19:30:00 EDT, Route to Pharmacy Electronically, [facility] #[id number], 158, cm, 08/27/22 15:01:00 EDT, Height Start Date: 12/11/22 Status: Ordered [place] Calcium with Vitamin D 500 IU By Mouth, 2 times a day, 0 Refills, Maintenance, 04/27/19 22:06:27 EST Start Date: 04/27/19 Status: Ordered dexlansoprazole 30 mg oral delayed release capsule 1 capsule, By Mouth, Daily, # 90 capsule, 1 Refills, Maintenance, 02/20/23 14:43:00 EDT, [facility] #[id number], 158, cm, 01/22/23 16:01:00 EDT, Height Start Date: 02/20/23 Status: Ordered DilTIAZem (Eqv-Cardizem CD) 360 mg/24 hours oral capsule, extended release 1 capsule, By Mouth, Daily, # 90 capsule, 1 Refills, Maintenance, 11/23/22 11:28:00 EDT, [facility] #[id number], 158, cm, 08/27/22 15:01:00 EDT, Height Start Date: 11/23/22 Status: Ordered escitalopram 5 mg oral tablet [...] opioid drug. Start Date: 08/27/22 Status: Ordered gabapentin 100 mg oral capsule 100 mg, 1, capsule, By Mouth, 3 times a day, PRN, # 270 capsule, Refills 1, Tot. Refills 1, Maintenance, Pain , Moderate, 03/10/23 15:20:00 EDT, Route to Pharmacy Electronically, [facility]#[id number], Partial fill upon patient request if the pr... Start Date: 03/10/23 Status: Ordered levothyroxine 125 mcg (0.125 mg) oral tablet 1 tablet = 125 mcg, By Mouth, Daily, # 90 tablet, 2 Refills, Maintenance, 12/30/22 6:22:00 EDT, Tablet, [facility] #[id number], Partial fill upon patient request if the [...] 22:06:17 EST Start Date: 04/27/19 Status: Ordered meclizine 25 mg oral tablet 1 tablet = 25 mg, By Mouth, 3 times a day, PRN for dizziness, # 30 tablet, 0 Refills, Maintenance, 04/27/19 22:06:52 EST, Tablet Start Date: 04/27/19 Status: Ordered nitroglycerin 0.3 [...] Daily, # 90 tablet, 1 Refills, Maintenance, 11/23/22 11:27:00 EDT, [facility] #[id number], 158, cm, 08/27/22 15:01:00 EDT, Height Start Date: 11/23/22 Status: Ordered Sutab oral tablet See Instructions, Take 24 tablets in 2 split doses as instructed by GI, # 24 tablet, 0 Refills, Maintenance, 05/07/23 17:20:00 EST, [facility] #[id number], Partial fill upon patient request if the prescription is for a schedule II opioid drug., T... 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 CTS (carpal tunnel syndrome) Confirmed Active Diastolic CHF, chronic Confirmed Active CAD (coronary artery disease) Confirmed Active GERD (gastroesophageal reflux disease) Confirmed Active History of osteoporosis 1 Confirmed Active Irritable bowel syndrome (IBS) 2 Confirmed Active Anxiety and depression Confirmed Active Combined hyperlipidemia Confirmed Active Obese class I Confirmed Active ELIZABETH (obstructive sleep apnea) 3 Confirmed Active DJD (degenerative joint disease) of knee Confirmed Active Sacroiliac dysfunction Confirmed Active Senile purpura Confirmed Active Neuroforaminal stenosis of lumbar spine Confirmed Active 1last DEXA 06/2022 improved to osteopenia 2With diarrhea. follows with GI 3on CPAP Social History Social History Type Response Smoking Status Former smoker entered on: 01/24/14 Sex Patient Care team information Care Team Personnel Name: Fatou Rahman RN Position: [facility] RN Member Role: Primary Care Nurse Name: Abbey Taylor RN Position: [facility] [place] Nurse Member Role: Primary Care Nurse Name: Dana Moreno RN Position: [facility] SN RN Member Role: Primary Care Nurse Name: Ashlie Moreno Position: [facility] Outreach Member Role: Lifetime Consulting Physician Name: Humera Mcgowan MD Position: [facility] Physician - Primary Care Member Role: PCP Address: Address: [facility] [place] [address]- Name: Cecilia Stephens RN Position: [facility] SN RN Member Role: Primary Care Nurse Name: Zoey Garcia Position: [facility] Member Role: Primary Care Nurse Name: Yuliana FELIX, Alyssa Position: [facility] RN Member Role: Primary Care Nurse Care Team Related Persons Name: ANGEL MILES Address: home [address] [place] [address] Name: DAVID FITZPATRICK Address: home [address] [place] [address] Name: LENIN MCINTYRE Address: [place] [address]
--- OUTSIDE RECORDS SUMMARY | 2023-10-12 06:13 | XMS_ITS | Continuity of Care Document ---
Author Organization [facility] Address [address] [place] [address]- Care Team Providers Care Horseradish Maker Name Role Phone Juan M LÓPEZ, Humera Leonard Primary Care Physician Encounter [facility] Date(s): 10/28/22 - 11/27/22 [facility] [address] [place] [address]- Attending Physician: Sinan Albert Admitting Physician: Admtr, Sinan Referring Physician: Admtr, Ar8 Allergies, Adverse Reactions, Alerts Substance Reaction Severity Status codeine Active sulfADIAZINE Active niacin Active Immunizations Given and Recorded Vaccine Date Status Refusal Reason [id number] 12y+ bivalent booster vax 02/20/22 Recorded influenza virus vaccine, inactivated 02/16/22 Ulices rded SARS-CoV-2 mRNA (blaoozy-vxiu-ywybm) vax 08/27/21 Recorded tetanus/diphtheria/pertussis, acel(Tdap) 03/25/21 Recorded [...] 0 Refills, Soft Stop, 04/07/22 12:03:00 EST, [facility] #[id number], Partial fill upon patient request if the [...] ER Tablet Start Date: 04/27/19 Status: Ordered [place] Calcium with Vitamin D 500 IU By Mouth, 2 times a day, 0 Refills, Maintenance, 04/27/19 22:06:27 EST Start Date: 04/27/19 Status: Ordered Coreg 25 mg oral tablet 25 mg, 1, tablet, By Mouth, 2 times a day, # 180 tablet, Refills 1, Tot. Refills 1, Maintenance, 06/08/22 9:28:00 EST, Route to Pharmacy Electronically, [facility] #[id number], Partial fill uponpatient request if the prescription is for a schedu... Start Date: 06/08/22 Status: Ordered dexlansoprazole 30 mg oral delayed release capsule 1 capsule, By Mouth, Daily, # 90 capsule, 0 Refills, Maintenance, 11/22/22 8:08:00 EDT, [facility] #[id number], 158, cm, 08/27/22 15:01:00 EDT, Height Start Date: 11/22/22 Status: Ordered DilTIAZem (Eqv-Cardizem CD) 360 mg/24 hours oral capsule, extended release 1 capsule, By Mouth, Daily, # 90 capsule, 1 Refills, Maintenance, 11/23/22 11:28:00 EDT, [facility] #[id number], 158, cm, 08/27/22 15:01:00 EDT, Height Start [...] Ordered levothyroxine 125 mcg (0.125 mg) oral capsule 1 capsule = 125 mcg, By Mouth, Daily, # 30 capsule, 5 Refills, Maintenance, 04/27/22 16:40:00 EST, Capsule, [facility] #[id number], Partial fill upon patient request if the prescription is for aschedule II opioid drug., 158, cm, 04/15/22 10:07:0... Start Date: 04/27/22 Status: Ordered Lomotil 0.025 mg-2.5 mg oral tablet 1, tablet, By Mouth, 4 times a day, PRN, # 180 tablet, Refills 3, Tot. Refills 3, Maintenance, for loose stool, 01/05/20 14:23:00 EDT, Route to Pharmacy Electronically, [facility]/pharmacy #[id number] Tablet, 158, cm, 01/05/20 13:56:00 EDT, Height, 98.1, kg, 12/21... Start Date: 01/05/20 Status: Ordered LSO for SI Joint Dysfunction [...] pain pe... Start Date: 03/11/22 Status: Ordered Ocuvite Adult 50+ By Mouth, Daily, 0 Refills, Maintenance, 05/08/20 12:58:00 EST, Partial fill upon patient request if the prescription is for a schedule II opioid drug. Start Date: 05/08/20 Status: Ordered rosuvastatin 10 mg oral tablet 1 tablet, By Mouth, Daily, # 90 tablet, 1 Refills, Maintenance, 11/23/22 11:27:00 EDT, [facility] #[id number], 158, cm, 08/27/22 15:01:00 EDT, Height Start Date: 11/23/22 Status: Ordered Tylenol 8 HR Arthritis Pain = 1,300 mg, By Mouth, Every 8 hours, 0 Refills, Maintenance, 05/08/20 12:59:00 EST, Partial fill upon patient request if the prescription is for a schedule II opioid drug. Start Date: 05/08/20 Status: Ordered Vitamin B12 500 mcg oral [...] breast Confirmed Active pacemaker recipient Confirmed Active Diastolic CHF, chronic Confirmed Active [...] Status Former smoker entered on: 01/24/14 Sex Cardiology * Event Display: Cardiology Office Note, Non- Authored Date: Patient Care team information Care Team Personnel Name: Fatou Rahman RN Position: [facility] RN Member Role: Primary Care Nurse Name: Abbey Taylor RN Position: [facility] Nurse Member Role: Primary Care Nurse Name: Dana Moreno RN Position: [facility] RN Member Role: Primary Care Nurse Name: Ashlie Moreno Position: [facility] Outreach Member Role: Lifetime Consulting Physician Name: Humera Mcgowan MD Position: [facility] Physician - Primary Care Member Role: PCP Address: Address: [facility] [place] [address]- Name: Cecilia Stephens RN Position: [facility] SN RN Member Role: Primary Care Nurse Name: Zoey Garcia Position: [facility] Member Role: Primary Care Nurse Name: Alyssa Bridges RN Position: [facility] RN Member Role: Primary Care Nurse Care Team Related Persons Name: DAVID FITZPATRICK Address: [address] [place] [address] Name: ALLEN LOPEZ Address: home [address] [place] [id number] Name: LENIN MCINTYRE Address: [facility] [place] [address]
--- OUTSIDE RECORDS SUMMARY | 2023-10-12 06:13 | XMS_ITS | Continuity of Care Document ---
Author Organization [facility] Address [address] [place] [address]- Care Team Providers Care Bread And Pastry Baker Name Role Phone Juan M LÓPEZ, Humera Leonard Primary Care Physician [phone] [place] [id number] Date(s): 02/06/22 - 05/08/22 [facility] [address] [place] [address]- Attending Physician: Martha LÓPEZ, Milagros Admitting Physician: Milagros Thomas MD Referring Physician: Juwan Lizama MD Allergies, Adverse Reactions, Alerts Substance Reaction Severity Status codeine Active sulfADIAZINE Active niacin Active Immunizations Given and Recorded Vaccine Date Status Refusal Reason [id number] 12y+ bivalent booster vax 02/20/22 Recorded influenza virus vaccine, inactivated 02/16/22 Ulices rded SARS-CoV-2 mRNA ([id number]) vax 08/27/21 Recorded tetanus/diphtheria/pertussis, acel(Tdap) 03/25/21 Recorded [...] 0 Refills, Soft Stop, 04/07/22 12:03:00 EST, [facility] #[id number], Partial fill upon patient request if the [...] ER Tablet Start Date: 04/27/19 Status: Ordered [place] Calcium with Vitamin D 500 IU By Mouth, 2 times a day, 0 Refills, Maintenance, 04/27/19 22:06:27 EST Start Date: 04/27/19 Status: Ordered Coreg 25 mg oral tablet 25 mg, 1, tablet, By Mouth, 2 times a day, # 180 tablet, Refills 0, Tot. Refills 0, Maintenance, 03/11/22 9:09:00 EDT, Route to Pharmacy Electronically, [facility] #[id number], Partial fill uponpatient request if the prescription is for a schedu... Start Date: 03/11/22 Status: Ordered Dexilant 30 mg oral delayed release capsule 1 capsule = 30 mg, By Mouth, Daily, # 90 capsule, 1 Refills, Maintenance, 03/11/22 9:11:00 EDT, CR Capsule, [facility] #[id number], Partial fill upon patient request if the prescription is for aschedule II opioid drug., 158, cm, 03/11/22 8:57:00... Start Date: 03/11/22 Status: Ordered dilTIAZem 360 mg/24 hours oral tablet, extended release 1 tablet = 360 mg, By Mouth, Daily, # 90 tablet, 0 Refills, Maintenance, 03/04/22 9:03:00 EDT, ER Tablet, Partial fill upon patient request if the prescription is for a schedule II opioid drug. Start Date: 03/04/22 Status: Ordered escitalopram 5 mg oral tablet 1 tablet = 5 mg, By Mouth, Daily, # 30 tablet, 0 Refills, Maintenance, 12/02/19 17:32:00 EDT, Tablet Start Date: 12/02/19 Status: Ordered ipratropium nasal (OP) = 0.06 %, 3 times a day, 0 Refills, Maintenance Start Date: 12/02/19 Status: Ordered levothyroxine 125 mcg (0.125 mg) oral capsule 1 capsule = 125 mcg, By Mouth, Daily, # 30 capsule, 5 Refills, Maintenance, 04/27/22 16:40:00 EST, Capsule, [facility] #[id number], Partial fill upon patient request if the prescription is for aschedule II opioid drug., 158, cm, 04/15/22 10:07:0... Start Date: 04/27/22 Status: Ordered levothyroxine 125 mcg (0.125 mg) oral capsule 1 capsule = 125 mcg, By Mouth, Daily, # 30 capsule, 0 Refills, Maintenance, 04/27/19 22:05:33 EST, Capsule Start Date: 04/27/19 Status: Ordered Lomotil 0.025 mg-2.5 mg oral tablet 1, tablet, By Mouth, 4 times a day, PRN, # 180 tablet, Refills 3, Tot. Refills 3, Maintenance, for loose stool, 01/05/20 14:23:00 EDT, Route to Pharmacy Electronically, [facility]/pharmacy #[id number] Tablet, 158, cm, 01/05/20 13:56:00 EDT, [...] 05/08/20 Status: Ordered rosuvastatin 10 mg oral capsule 1 capsule = 10 mg, By Mouth, Daily, # 30 capsule, 5 Refills, Maintenance, 04/27/22 16:40:00 EST, Capsule, [facility] #[id number], Partial fill upon patient request if the prescription is for a schedule II opioid drug., 158, cm, 04/15/22 10:07:00... Start Date: 04/27/22 Status: Ordered Tylenol 8 HR Arthritis Pain [...] 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 CAD (coronary artery disease) Confirmed Active GERD (gastroesophageal reflux disease) Confirmed Active Irritable bowel syndrome (IBS) 1 Confirmed Active Anxiety and depression Confirmed Active Combined hyperlipidemia Confirmed Active Obese class II Confirmed Active ELIZABETH (obstructive sleep apnea) 2 Confirmed Active DJD (degenerative joint disease) of knee Confirmed Active Osteoporosis Confirmed Active Sacroiliac dysfunction Confirmed Active Senile purpura Confirmed Active Neuroforaminal stenosis of lumbar spine Confirmed Active 1With diarrhea. follows with GI 2on CPAP Social History Social History Type Response Smoking Status Former smoker entered on: 01/24/14 Sex Patient Care team information Care Team Personnel Name: Fatou Rahman RN Position: [facility] RN Member Role: Primary Care Nurse Name: Abbey Taylor RN Position: [facility] PCO RN Member Role: Primary Care Nurse Name: Dana Moreno RN Position: [facility] RN Member Role: Primary Care Nurse Name: Ashlie Moreno Position: [facility] Outreach Member Role: Lifetime Consulting Physician Name: Humera Mcgowan MD Position: [facility] Primary Care Physician Member Role: PCP Address: Address: [address] [place] [address] [place] [address]- Name: Cecilia Stephens RN Position: [facility] SN RN Member Role: Primary Care Nurse Name: Zoey Crespo Position: [facility] RN Member Role: Primary Care Nurse Name: Alyssa Bridges RN Position: [facility] RN Member Role: Primary Care Nurse Care Team Related Persons Name: DAVID FITZPATRICK Address: [address] [place] [address] Name: ALLEN LOPEZ Address: home [address] [place] [address] Name: LENIN MCINTYRE Address: [place] [address]
--- OUTSIDE RECORDS SUMMARY | 2023-10-12 06:13 | XMS_ITS | Continuity of Care Document ---
Author Organization [facility] Address [address] [address]- Care Team Providers Care Director [employer] Name Role Phone Juan M LÓPEZ, Humera Leonard Primary Care Physician Encounter [facility] Date(s): 01/22/23 - 02/21/23 [facility] [address] [place] [address] [place] [id number] Attending Physician: AdmSinan garcia Admitting Physician: AdmSinan garcia Referring Physician: Admtr, Sinan Allergies, Adverse Reactions, Alerts Substance Reaction Severity Status codeine Active sulfADIAZINE Active niacin Active Immunizations Given and Recorded Vaccine Date Status Refusal Reason [id number] 12y+ bivalent booster vax 02/20/22 Recorded influenza virus vaccine, inactivated 02/16/22 Ulices rded SARS-CoV-2 mRNA (sdtlnac-znqo-lerxn) vax 08/27/21 Recorded tetanus/diphtheria/pertussis, acel(Tdap) 03/25/21 Recorded [...] 0 Refills, Soft Stop, 04/07/22 12:03:00 EST, [facility] #[id number], Partial fill upon patient request if the [...] 12/11/22 19:30:00 EDT, Route to Pharmacy Electronically, [facility] #[id number], 158, cm, 08/27/22 15:01:00 EDT, Height Start Date: 12/11/22 Status: Ordered [place] Calcium with Vitamin D 500 IU By Mouth, 2 times a day, 0 Refills, Maintenance, 04/27/19 22:06:27 EST Start Date: 04/27/19 Status: Ordered dexlansoprazole 30 mg oral delayed release capsule 1 capsule, By Mouth, Daily, # 90 capsule, 1 Refills, Maintenance, 02/20/23 14:43:00 EDT, [facility] #[id number], 158, cm, 01/22/23 16:01:00 EDT, Height Start Date: 02/20/23 Status: Ordered DilTIAZem (Eqv-Cardizem CD) 360 mg/24 hours oral capsule, extended release 1 capsule, By Mouth, Daily, # 90 capsule, 1 Refills, Maintenance, 11/23/22 11:28:00 EDT, [facility] #[id number], 158, cm, 08/27/22 15:01:00 EDT, Height Start [...] 2 Refills, Maintenance, 12/30/22 6:22:00 EDT, Tablet, [facility] #[id number], Partial fill upon patient request if the prescription is for a schedule II opioid drug., 158, cm, 08/27/22 15:01:00 ED... Start Date: 12/30/22 Status: Ordered Lomotil 0.025 mg-2.5 mg oral tablet 1, tablet, By Mouth, 4 times a day, PRN, # 180 tablet, Refills 3, Tot. Refills 3, Maintenance, for loose stool, 01/05/20 14:23:00 EDT, Route to Pharmacy Electronically, [facility]/pharmacy #[id number] Tablet, 158, cm, 01/05/20 13:56:00 EDT, [...] tablet, 1 Refills, Maintenance, 11/23/22 11:27:00 EDT, [id number], 158, cm, 08/27/22 15:01:00 EDT, Height Start [...] Team Personnel Name: Fatou Rahman RN Position: [facility] RN Member Role: Primary Care Nurse Name: Abbey Taylor RN Position: [facility] AMB Nurse Member Role: Primary Care Nurse Name: Dana Moreno RN Position: [facility] SN RN Member Role: Primary Care Nurse Name: Ashlie Moreno Position: [facility] Outreach Member Role: Lifetime Consulting Physician Name: Humera Mcgowan MD Position: [facility] Physician - Primary Care Member Role: PCP Address: Address: [address] [place] [address] [place] [address]- Name: Cecilia Stephens RN Position: [facility] SN RN Member Role: Primary Care Nurse Name: Zoey Garcia Position: [facility] [place] Member Role: Primary Care Nurse Name: Alyssa Bridges RN Position: [facility] RN Member Role: Primary Care Nurse Care Team Related Persons Name: ANGEL MILES Address: [address] [place] [address] Name: DAVID FITZPATRICK Address: [address] [place] [address] Name: LENIN MCINTYRE Address: [place] [address]
--- OUTSIDE RECORDS SUMMARY | 2023-10-12 06:13 | XMS_ITS | Continuity of Care Document ---
Author Organization [facility] Address [address] [place] [address]- Care Team Providers Care Restorative Art Embalmer Name Role Phone Juan M LÓPEZ, Humera Leonard Primary Care Physician [phone] [place] [facility] [place] 02/08/23 - 03/10/23 [facility] [address] [place] [address]- Attending Physician: Sinan Albert Admitting Physician: AdmtrSinan Referring Physician: Admtr, Ar8 Allergies, Adverse Reactions, Alerts Substance Reaction Severity Status codeine Active sulfADIAZINE Active niacin Active Immunizations Given and Recorded Vaccine Date Status Refusal Reason influenza virus vaccine, inactivated 03/10/23 Give n influenza virus vaccine, inactivated 02/16/22 Ulices rded [id number] 12y+ bivalent booster vax 02/20/22 Recorded SARS-CoV-2 mRNA (ksrogue-tnaw-dbzcn) vax 08/27/21 Recorded tetanus/diphtheria/pertussis, acel(Tdap) 03/25/21 Recorded [...] 0 Refills, Soft Stop, 04/07/22 12:03:00 EST, [facility] #[id number], Partial fill upon patient request if the [...] 12/11/22 19:30:00 EDT, Route to Pharmacy Electronically, [facility] #[id number], 158, cm, 08/27/22 15:01:00 EDT, Height Start Date: 12/11/22 Status: Ordered [place] Calcium with Vitamin D 500 IU By Mouth, 2 times a day, 0 Refills, Maintenance, 04/27/19 22:06:27 EST Start Date: 04/27/19 Status: Ordered dexlansoprazole 30 mg oral delayed release capsule 1 capsule, By Mouth, Daily, # 90 capsule, 1 Refills, Maintenance, 02/20/23 14:43:00 EDT, [facility] #[id number], 158, cm, 01/22/23 16:01:00 EDT, Height Start Date: 02/20/23 Status: Ordered DilTIAZem (Eqv-Cardizem CD) 360 mg/24 hours oral capsule, extended release 1 capsule, By Mouth, Daily, # 90 capsule, 1 Refills, Maintenance, 11/23/22 11:28:00 EDT, [facility] #[id number], 158, cm, 08/27/22 15:01:00 EDT, Height Start [...] 03/10/23 15:20:00 EDT, Route to Pharmacy Electronically, [facility]#[id number], Partial fill upon patient request if the pr... Start Date: 03/10/23 Status: Ordered levothyroxine 125 mcg (0.125 mg) oral tablet 1 tablet = 125 mcg, By Mouth, Daily, # 90 tablet, 2 Refills, Maintenance, 12/30/22 6:22:00 EDT, Tablet, [facility] #[id number], Partial fill upon patient request if the prescription is for a schedule II opioid drug., 158, cm, 08/27/22 15:01:00 ED... Start Date: 12/30/22 Status: Ordered Lomotil 0.025 mg-2.5 mg oral tablet 1, tablet, By Mouth, 4 times a day, PRN, # 180 tablet, Refills 3, Tot. Refills 3, Maintenance, for loose stool, 01/05/20 14:23:00 EDT, Route to Pharmacy Electronically, [facility]/pharmacy #[id number] Tablet, 158, cm, 01/05/20 13:56:00 [...] tablet, 1 Refills, Maintenance, 11/23/22 11:27:00 EDT, [facility] #[id number], 158, cm, 08/27/22 15:01:00 EDT, Height Start [...] Team Personnel Name: Fatou Rahman RN Position: [facility] RN Member Role: Primary Care Nurse Name: Abbey Taylor RN Position: [facility] Nurse Member Role: Primary Care Nurse Name: Dana Moreno RN Position: [facility] RN Member Role: Primary Care Nurse Name: Ashlie Moreno Position: [facility] Outreach Member Role: Lifetime Consulting Physician Name: Humera Mcgowan MD Position: [facility] Physician - Primary Care Member Role: PCP Address: Address: [facility] [place] [address]- [place] Name: Cecilia Stephens RN Position: [facility] RN Member Role: Primary Care Nurse Name: Zoey Garcia Position: [facility] [place] Member Role: Primary Care Nurse Name: Alyssa Bridges RN Position: [facility] RN Member Role: Primary Care Nurse Care Team Related Persons Name: ANGEL MILES Address: home [address] [place] [address] Name: DAVID FITZPATRICK Address: home [address] [place] [address] Name: LENIN MCINTYRE Address: [place] [address]
--- OUTSIDE RECORDS SUMMARY | 2023-10-12 06:13 | XMS_ITS | Continuity of Care Document ---
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 Role Phone Juan M LÓPEZ, Humera Leonard Primary Care Physician Encounter [facility] [place] R [id number] Date(s): 01/06/22 - 04/22/22 [facility] [address] [place] [address]- Attending Physician: Milagros Thomas MD Admitting Physician: Milagros Thomas MD Allergies, Adverse Reactions, Alerts Substance Reaction Severity Status codeine Active sulfADIAZINE Active niacin Active Immunizations Given and Recorded Vaccine Date Status Refusal Reason SARS-CoV-2 mRNA (avauzia-ncfp-ehovh) vax 08/27/21 Recorded tetanus/diphtheria/pertussis, acel(Tdap) 03/25/21 Recorded [...] SARS-CoV-2 (COVID-19) mRNA BNT-162b2 vac 07/14/20 Recorded Zoster Vaccine Live 08/12/18 Recorded Zoster Vaccine Live 06/18/08 Recorded pneumococcal 13-valent vaccine 03/13/15 Recorded pneumococcal [...] 0 Refills, Soft Stop, 04/07/22 12:03:00 EST, [facility] #[id number], Partial fill upon patient request if the [...] ER Tablet Start Date: 04/27/19 Status: Ordered CeleBREX 100 mg oral capsule 1 capsule = 100 mg, By Mouth, 2 times a day, # 60 capsule, 0 Refills, Maintenance, 04/15/22 10:40:00 EST, Capsule, [facility] #[id number], Partial fill upon patient request if the prescription is for a schedule II opioid drug., 158, cm, 04/15/22... Start Date: 04/15/22 Status: Ordered Emma Calcium with Vitamin D 500 IU By Mouth, 2 times a day, 0 Refills, Maintenance, 04/27/19 22:06:27 EST Start Date: 04/27/19 Status: Ordered Coreg 25 mg oral tablet 25 mg, 1, tablet, By Mouth, 2 times a day, # 180 tablet, Refills 0, Tot. Refills 0, Maintenance, 03/11/22 9:09:00 EDT, Route to Pharmacy Electronically, [facility] #[id number], Partial fill uponpatient request if the prescription is for a schedu... Start Date: 03/11/22 Status: Ordered Dexilant 30 mg oral delayed release capsule 1 capsule = 30 mg, By Mouth, Daily, # 90 capsule, 1 Refills, Maintenance, 03/11/22 9:11:00 EDT, CR Capsule, [facility] #[id number], Partial fill upon patient request if the [...] EDT, Route to Pharmacy Electronically, [facility]/pharmacy #[id number] Tablet, 158, cm, 01/05/20 13:56:00 EDT, [...] Ordered rosuvastatin 10 mg oral tablet 1 tablet = 10 mg, By Mouth, Daily, # 90 tablet, 0 Refills, Maintenance, 03/04/22 9:04:00 EDT, Tablet, Partial fill upon patient request if the prescription is for a schedule II opioid drug. Start Date: 03/04/22 Status: Ordered Tylenol 8 HR Arthritis Pain [...] Team Personnel Name: Fatou Rahman RN Position: [facility] RN Member Role: Primary Care Nurse Name: Abbey Taylor RN Position: [facility] PCO RN Member Role: Primary Care Nurse Name: Dana Moreno RN Position: [facility] RN Member Role: Primary Care Nurse Name: Ashlie Moreno Position: [facility] Outreach Member Role: Lifetime Consulting Physician Name: Humera Mcgowan MD Position: [facility] Primary Care Physician Member Role: PCP Address: Address: [address] [place] [address] [place] [address]- Name: Cecilia Stephens RN Position: [facility] SN RN Member Role: Primary Care Nurse Name: Zoey Crespo Position: [facility] RN Member Role: Primary Care Nurse Name: Alyssa Bridges RN Position: [facility] RN Member Role: Primary Care Nurse Care Team Related Persons Name: DAVID FITZPATRICK Address: home [address] [place] [address] Name: ALLEN LOPEZ Address: home [address] [place] [id number] Name: LENIN MCINTYRE Address: [place] [address]
--- OUTSIDE RECORDS SUMMARY | 2023-10-12 06:13 | XMS_ITS | Continuity of Care Document ---
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 Role Phone Juan M LÓPEZ, Humera Leonard Primary Care Physician [place] [facility] [id number] Date(s): 05/25/22 - 06/24/22 [facility] [address] [place] [address]- Attending Physician: Sinan Albert Admitting Physician: Sinan Albert Referring Physician: Sinan Albert Allergies, Adverse Reactions, Alerts Substance Reaction Severity Status codeine Active sulfADIAZINE Active niacin Active Immunizations Given and Recorded Vaccine Date Status Refusal Reason [id number] 12y+ bivalent booster vax 02/20/22 Recorded influenza virus vaccine, inactivated 02/16/22 Ulices rded SARS-CoV-2 mRNA (ewahhch-xatq-vjawx) vax 08/27/21 Recorded tetanus/diphtheria/pertussis, acel(Tdap) 03/25/21 Recorded [...] 0 Refills, Soft Stop, 04/07/22 12:03:00 EST, [facility] #[id number], Partial fill upon patient request if the [...] ER Tablet Start Date: 04/27/19 Status: Ordered [place] Calcium with Vitamin D 500 IU By Mouth, 2 times a day, 0 Refills, Maintenance, 04/27/19 22:06:27 EST Start Date: 04/27/19 Status: Ordered Coreg 25 mg oral tablet 25 mg, 1, tablet, By Mouth, 2 times a day, # 180 tablet, Refills 1, Tot. Refills 1, Maintenance, 06/08/22 9:28:00 EST, Route to Pharmacy Electronically, [facility] #[id number], Partial fill uponpatient request if the prescription is for a schedu... Start Date: 06/08/22 Status: Ordered Dexilant 30 mg oral delayed release capsule 1 capsule = 30 mg, By Mouth, Daily, # 90 capsule, 1 Refills, Maintenance, 03/11/22 9:11:00 EDT, CR Capsule, [facility] #[id number], Partial fill upon patient request if the prescription is for aschedule II opioid drug., 158, glenny, 03/11/22 8:57:00... Start Date: 03/11/22 Status: Ordered dilTIAZem 360 mg/24 hours oral tablet, extended release 1 tablet = 360 mg, By Mouth, Daily, # 90 tablet, 1 Refills, Maintenance, 05/20/22 10:48:00 EST, ER Tablet, [facility] #[id number], Partial fill upon patient request if the prescription is for a schedule II opioid drug., 158, glenny, 05/19/22 10:52:00... Start Date: 05/20/22 Status: Ordered escitalopram 5 mg oral tablet [...] 5 Refills, Maintenance, 04/27/22 16:40:00 EST, Capsule, [facility] #[id number], Partial fill upon patient request if the prescription is for aschedule II opioid drug., 158, glenny, 04/15/22 10:07:0... Start Date: 04/27/22 Status: Ordered [...] 01/05/20 14:23:00 EDT, Route to Pharmacy Electronically, [facility]/pharmacy #[id number] Tablet, 158, cm, 01/05/20 13:56:00 EDT, [...] 10 mg, By Mouth, Daily, # 90 capsule, 1 Refills, Maintenance, 05/20/22 10:49:00 EST, Capsule, [facility] #[id number], Partial fill upon patient request if the prescription is for a schedule II opioid drug., 158, cm, 05/19/22 10:52:00... 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 Diastolic CHF, chronic Confirmed Active CAD (coronary artery disease) Confirmed Active GERD (gastroesophageal reflux disease) Confirmed Active Irritable bowel syndrome (IBS) 1 Confirmed Active Anxiety and depression Confirmed Active Combined hyperlipidemia Confirmed Active ELIZABETH (obstructive sleep apnea) 2 [...] Team Personnel Name: Fatou Rahman RN Position: [facility] RN Member Role: Primary Care Nurse Name: Abbey Taylor RN Position: [facility] PCO RN Member Role: Primary Care Nurse Name: Dana Moreno RN Position: [facility] RN Member Role: Primary Care Nurse Name: Ashlie Moreno Position: [facility] Outreach Member Role: Lifetime Consulting Physician Name: Humera Mcgowan MD Position: [facility] Primary Care Physician Member Role: PCP Address: Address: [address] [place] [address] [place] [address]- Name: Ceciila Stephens RN Position: [facility] SN RN Member Role: Primary Care Nurse Name: Zoey Crespo Position: [facility] RN Member Role: Primary Care Nurse Name: Alyssa Bridges RN Position: [facility] RN Member Role: Primary Care Nurse Care Team Related Persons Name: DAVID FITZPATRICK Address: home [address] [place] [address] Name: ALLEN LOPEZ Address: [address] [address] Name: LENIN MCINTYRE Address: [place] [address]
--- OUTSIDE RECORDS SUMMARY | 2023-10-12 06:14 | XMS_ITS | Continuity of Care Document ---
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 Name Role Phone Juan M LÓPEZ, Humera Leonard Primary Care Physician [phone] Encounter [facility] [place] Date(s): 02/12/23 - 03/14/23 [facility] [address] [place] [address]- Attending Physician: Admtr, Carroll8 Admitting Physician: Admtr, Ar8 Referring Physician: Admtr, Ar8 Allergies, Adverse Reactions, Alerts Substance Reaction Severity Status codeine Active sulfADIAZINE Active niacin Active Immunizations Given and Recorded Vaccine Date Status Refusal Reason influenza virus vaccine, inactivated 03/10/23 Give n influenza virus vaccine, inactivated 02/16/22 Ulices rded [id number] 12y+ bivalent booster vax 02/20/22 Recorded SARS-CoV-2 mRNA (ernhana-zbhe-nrwjt) vax 08/27/21 Recorded tetanus/diphtheria/pertussis, acel(Tdap) 03/25/21 Recorded [...] 0 Refills, Soft Stop, 04/07/22 12:03:00 EST, [facility] #[id number], Partial fill upon patient request if the [...] 12/11/22 19:30:00 EDT, Route to Pharmacy Electronically, [facility] #[id number], 158, cm, 08/27/22 15:01:00 EDT, Height Start Date: 12/11/22 Status: Ordered [place] Calcium with Vitamin D 500 IU By Mouth, 2 times a day, 0 Refills, Maintenance, 04/27/19 22:06:27 EST Start Date: 04/27/19 Status: Ordered dexlansoprazole 30 mg oral delayed release capsule 1 capsule, By Mouth, Daily, # 90 capsule, 1 Refills, Maintenance, 02/20/23 14:43:00 EDT, [facility] #[id number], 158, cm, 01/22/23 16:01:00 EDT, Height Start Date: 02/20/23 Status: Ordered DilTIAZem (Eqv-Cardizem CD) 360 mg/24 hours oral capsule, extended release 1 capsule, By Mouth, Daily, # 90 capsule, 1 Refills, Maintenance, 11/23/22 11:28:00 EDT, [facility] #[id number], 158, cm, 08/27/22 15:01:00 EDT, Height Start [...] 03/10/23 15:20:00 EDT, Route to Pharmacy Electronically, [facility]#[id number], Partial fill upon patient request if the pr... Start Date: 03/10/23 Status: Ordered levothyroxine 125 mcg (0.125 mg) oral tablet 1 tablet = 125 mcg, By Mouth, Daily, # 90 tablet, 2 Refills, Maintenance, 12/30/22 6:22:00 EDT, Tablet, [facility] #[id number], Partial fill upon patient request if the prescription is for a schedule II opioid drug., 158, cm, 08/27/22 15:01:00 ED... Start Date: 12/30/22 Status: Ordered Lomotil 0.025 mg-2.5 mg oral tablet 1, tablet, By Mouth, 4 times a day, PRN, # 180 tablet, Refills 3, Tot. Refills 3, Maintenance, for loose stool, 01/05/20 14:23:00 EDT, Route to Pharmacy Electronically, [facility]/pharmacy #[id number] Tablet, 158, cm, 01/05/20 13:56:00 [...] tablet, 1 Refills, Maintenance, 11/23/22 11:27:00 EDT, [facility] #[id number], 158, cm, 08/27/22 15:01:00 EDT, Height Start [...] Personnel Name: Fatou Rahman RN Position: [facility] RN Member Role: Primary Care Nurse Name: Abbey Taylor RN Position: [facility]B Nurse Member Role: Primary Care Nurse Name: Dana Moreno RN Position: [facility] RN Member Role: Primary Care Nurse Name: Ashlie Moreno Position: [facility] Outreach Member Role: Lifetime Consulting Physician Name: Humera Mcgowan MD Position: [facility] Physician - Primary Care Member Role: PCP Address: Address: [facility] [place] [address]- [place] Name: Cecilia Stephens RN Position: [facility] RN Member Role: Primary Care Nurse Name: Zoey Garcia Position: [facility] [place] Member Role: Primary Care Nurse Name: Alyssa Bridges RN Position: [facility] RN Member Role: Primary Care Nurse Care Team Related Persons Name: ANGEL MILES Address: home [address] [place] [address] Name: DAVID FITZPATRICK Address: home [address] [place] [address] Name: LENIN MCINTYRE Address: [place] [address]
--- OUTSIDE RECORDS SUMMARY | 2023-10-12 06:14 | XMS_ITS | Continuity of Care Document ---
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 Role Phone Juan M LÓPEZ, Humera Leonard Primary Care Physician [place] [facility] [place] - 11/[place]/22 [facility] [address] [place] [id number] Attending Physician: Breana Haddad MD Admitting Physician: Breana Haddad MD Referring Physician: Humera Mcgowan MD Allergies, Adverse Reactions, Alerts Substance Reaction Severity Status codeine Active sulfADIAZINE Active niacin Active Immunizations Given and Recorded Vaccine Date Status Refusal Reason [id number] 12y+ bivalent booster vax 02/20/22 Recorded influenza virus vaccine, inactivated 02/16/22 Ulices rded SARS-CoV-2 mRNA (iejhgxy-eigy-zmvcw) vax 08/27/21 Recorded tetanus/diphtheria/pertussis, acel(Tdap) 03/25/21 Recorded [...] 0 Refills, Soft Stop, 04/07/22 12:03:00 EST, [facility] #[id number], Partial fill upon patient request if the [...] ER Tablet Start Date: 04/27/19 Status: Ordered [place] Calcium with Vitamin D 500 IU By Mouth, 2 times a day, 0 Refills, Maintenance, 04/27/19 22:06:27 EST Start Date: 04/27/19 Status: Ordered Coreg 25 mg oral tablet 25 mg, 1, tablet, By Mouth, 2 times a day, # 180 tablet, Refills 1, Tot. Refills 1, Maintenance, 06/08/22 9:28:00 EST, Route to Pharmacy Electronically, [facility] #[id number], Partial fill uponpatient request if the prescription is for a schedu... Start Date: 06/08/22 Status: Ordered dexlansoprazole 30 mg oral delayed release capsule 1 capsule, By Mouth, Daily, # 90 capsule, 0 Refills, Maintenance, 11/22/22 8:08:00 EDT, [facility] #[id number], 158, cm, 08/27/22 15:01:00 EDT, Height Start Date: 11/22/22 Status: Ordered DilTIAZem (Eqv-Cardizem CD) 360 mg/24 hours oral capsule, extended release 1 capsule, By Mouth, Daily, # 90 capsule, 1 Refills, Maintenance, 11/23/22 11:28:00 EDT, [facility] #[id number], 158, cm, 08/27/22 15:01:00 EDT, Height Start [...] 5 Refills, Maintenance, 04/27/22 16:40:00 EST, Capsule, [facility] #[id number], Partial fill upon patient request if the prescription is for aschedule II opioid drug., 158, cm, 04/15/22 10:07:0... Start Date: 04/27/22 Status: Ordered Lomotil 0.025 mg-2.5 mg oral tablet 1, tablet, By Mouth, 4 times a day, PRN, # 180 tablet, Refills 3, Tot. Refills 3, Maintenance, for loose stool, 01/05/20 14:23:00 EDT, Route to Pharmacy Electronically, [facility]/pharmacy #[id number] Tablet, 158, cm, 01/05/20 13:56:00 [...] tablet, 1 Refills, Maintenance, 11/23/22 11:27:00 EDT, [facility] #[id number], 158, cm, 08/27/22 15:01:00 EDT, Height Start [...] Team Personnel Name: Fatou Rahman RN Position: [facility] RN Member Role: Primary Care Nurse Name: Abbey Taylor RN Position: [facility] Nurse Member Role: Primary Care Nurse Name: Dana Moreno RN Position: [facility] RN Member Role: Primary Care Nurse Name: Ashlie Moreno Position: [facility] Outreach Member Role: Lifetime Consulting Physician Name: Humera Mcgowan MD Position: [facility] Physician - Primary Care Member Role: PCP Address: Address: [address] [place] [address] [place] [address]- Name: Cecilia Stephens RN Position: [facility] SN RN Member Role: Primary Care Nurse Name: Zoey Garcia Position: [facility] MA Member Role: Primary Care Nurse Name: Alyssa Bridges RN Position: [facility] RN Member Role: Primary Care Nurse Care Team Related Persons Name: DAVID FITZPATRICK Address: [address] [place] [address] Name: ALLEN LOPEZ Address: home [address] [place] [address] Name: LENIN MCINTYRE Address: [place] [address]
--- OUTSIDE RECORDS SUMMARY | 2023-10-12 06:14 | XMS_ITS | Continuity of Care Document ---
Author Organization [facility] ter Address [address] [place] [address]- Care Team Providers Care Glassware Maker Demonstrator Name Role Phone Juan M LÓPEZ, Humera Leonard Primary Care Physician Encounter [facility] [place] Date(s): 04/09/23 - 04/09/[address] [address] Discharge Disposition: A-D/C Home Attending Physician: Riley Simpson MD Admitting Physician: Riley Simpson MD Referring Physician: Riley Simpson MD Allergies, Adverse Reactions, Alerts Substance Reaction Severity Status codeine fainting Active sulfADIAZINE rash Active niacin rash Active Immunizations Given and Recorded Vaccine Date Status Refusal Reason influenza virus vaccine, inactivated 03/10/23 Give n influenza virus vaccine, inactivated 02/16/22 Ulices rded [id number] 12y+ bivalent booster vax 02/20/22 Recorded SARS-CoV-2 mRNA (tsgguwu-oeap-rtizn) vax 08/27/21 Recorded tetanus/diphtheria/pertussis, acel(Tdap) 03/25/21 Recorded [...] 0 Refills, Soft Stop, 04/07/22 12:03:00 EST, [id number], Partial fill upon patient request if the [...] 12/11/22 19:30:00 EDT, Route to Pharmacy Electronically, [facility] #[id number], 158, cm, 08/27/22 15:01:00 EDT, Height Start Date: 12/11/22 Status: Ordered Colleton Calcium with Vitamin D 500 IU By Mouth, 2 times a day, 0 Refills, Maintenance, 04/27/19 22:06:27 EST Start Date: 04/27/19 Status: Ordered dexlansoprazole 30 mg oral delayed release capsule 1 capsule, By Mouth, Daily, # 90 capsule, 1 Refills, Maintenance, 02/20/23 14:43:00 EDT, [facility][id number], 158, cm, 01/22/23 16:01:00 EDT, Height Start Date: 02/20/23 Status: Ordered DilTIAZem (Eqv-Cardizem CD) 360 mg/24 hours oral capsule, extended release 1 capsule, By Mouth, Daily, # 90 capsule, 1 Refills, Maintenance, 11/23/22 11:28:00 EDT, [facility][id number], 158, cm, 08/27/22 15:01:00 EDT, Height Start [...] 03/10/23 15:20:00 EDT, Route to Pharmacy Electronically, [id number], Partial fill upon patient request if the pr... Start Date: 03/10/23 Status: Ordered levothyroxine 125 mcg (0.125 mg) oral tablet 1 tablet = 125 mcg, By Mouth, Daily, # 90 tablet, 2 Refills, Maintenance, 12/30/22 6:22:00 EDT, Tablet, [facility][id number], Partial fill upon patient request if the prescription is for a schedule II opioid drug., 158, cm, 08/27/22 15:01:00 ED... Start Date: 12/30/22 Status: Ordered Lomotil 0.025 mg-2.5 mg oral tablet 1, tablet, By Mouth, 4 times a day, PRN, # 180 tablet, Refills 3, Tot. Refills 3, Maintenance, for loose stool, 01/05/20 14:23:00 EDT, Route to Pharmacy Electronically, [facility]/pharmacy #[id number] Tablet, 158, cm, 01/05/20 13:56:00 [...] tablet, 1 Refills, Maintenance, 11/23/22 11:27:00 EDT, [facility] #[id number], 158, cm, 08/27/22 15:01:00 EDT, Height Start Date: 11/23/22 Status: Ordered Vitamin B12 500 mcg oral [...] 2With diarrhea. follows with GI 3on CPAP Vital Signs Most recent to oldest [Reference Range]: 1 2 3 Height 157.48 cm (04/09/23 12:32 PM) 157.48 cm (04/02/23 5:57 PM) Weight 86.8 kg (04/09/23 12:32 PM) 85.45 kg (04/02/23 5:57 PM) Oxygen Saturation [94-100 %] 97 % (04/09/23 2:15 PM) 97 % (04/09/23 2:00 PM) 97 % (04/09/23 1:45 PM) Pulse Rate [55-90 bpm] 65 bpm (04/09/23 12:32 PM) Body Mass Index [18.5-24.99 kg/m2] 35 kg/m2 *>HHI* (04/09/23 12:32 PM) 34.46 kg/m2 *>HHI* (04/02/23 5:57 PM) Blood Pressure [90-138/55-84 mm Hg] 161/68mm Hg *H* (04/09/23 2:15 PM) 145/62mm Hg *H* (04/09/23 2:00 PM) 145/62mm Hg *H* (04/09/23 1:45 PM) Respiratory Rate [16-30 br/min] 10 br/min *L* (04/09/23 2:15 PM) 11 br/min *L* (04/09/23 2:00 PM) 14 br/min *L* (04/09/23 1:45 PM) Temperature [96.8-100.4 DegF] 98.4 DegF (04/09/23 1:45 PM) 98 DegF (04/09/23 12:32 PM) Liters per Minute 6 L/min (04/09/23 1:45 PM) 2 L/min (04/09/23 12:30 PM) Mode of Delivery (Oxygen) Room air (04/09/23 3:15 PM) Room air (04/09/23 2:15 PM) Simple face mask (04/09/23 1:45 PM) Blood pressure sites Arm, right (04/09/23 1:45 PM) Temperature Route Temporal (04/09/23 1:45 PM) Temporal (04/09/23 12:32 PM) Dry Weight 86.8 kg (04/09/23 12:32 PM) 85.45 kg (04/02/23 5:57 PM) Weight Obtained Via Standing scale (04/09/23 12:32 PM) Dry Weight Obtained Via Patient/family s tated (04/02/23 5:57 PM) Social History Social History Type Response Smoking Status Former smoker entered on: 01/24/14 Sex Note * Jie Tillman RN: PERFORM Event Display: Discharge/Transfer Note Hospital Authored Date: [id number] Nursing Discharge Note Entered On: 04/09/2023 15:29 EST Performed On: 04/09/2023 15:29 EST by Jie Tillman RN Nursing Discharge Note 2 Discharge Time : 04/09/2023 15:24 EST Discharge Level of Care at Discharge : Home/Fci/Foster Care Patient Left Unit Via : Wheelchair Patient Accompanied Off Unit with : Responsible adult DC Instructions Provided & Signed by Pt : Yes Patient Understands D/C Instructions : Yes Verbalized Understanding of D/C Plan By : Patient Patient Instructions Discharge Signed : Yes Did Pt have Specialty Bed or Wound Vac : No Jie Tillman RN - 04/09/2023 15:29 EST * Jie Tillman RN: PERFORM, MODIFY Event Display: Patient Education/Instruction Authored Date: [id number] Inpatient Adult Discharge Instructions [address] [address] Name: JUVENCIO MCINTYRE : 1940 Visit: 04/09/2023 11:20:00 Current Date: 04/09/2023 14:14 Account: [id number] Inpatient Adult Discharge Instructions We would like to thank you for allowing us to assist you with your healthcare needs. The following includes patient education materials and information regarding your injury/illness. Our entire staffstrives to provide an excellent experience for our patients and their families. PLEASE ENSURE YOU FOLLOW-UP PER THE INSTRUCTIONS BELOW! ?? YOUR OPINION IS IMPORTANT TO US! Please complete the survey you may receive by mail or email. Your feedback will be used to make improvements to the healthcare experiences of our patients and their families. Surveys are administered by [employer] ?? If further treatment with your primary care physician or another doctor is recommended, it is important for you to keep the appointment. Call your primary care physician or return to the Emergency Department immediately if your condition worsens, fails to improve, or new symptoms develop. If you need to find a doctor, you can call [facility] Link for a referral at [phone] or toll free at [phone]) or log in to [email or web address].. ?? [facility], in keeping with [facility] guidance, no longer requires face masks for staff, patientsor visitors in most situations. Similiar to time spent indoors at other locations, there is the chance that you were exposed to repiratory viruses during your time with us (such as flu or COVID-19). If you develop symptoms concerning for a viral respiratory infection, please seek testing (and treatment if indicated) from your medical provider or home test kit. ?? You can view and manage your care through the patient portal or by using a health care tutu of your choosing. [employer] is a website that allows you to securely view your medical information including your hospital discharge summary, office visit summaries, medications and follow-up visits. You can also request appointments, renew medications, and request access to your medical information using a health care tutu of your choosing, or just ask a question. You can enroll at [email or web address] or register during your next office visit. You have been discharged from [facility], Patient Care Unit: [facility]. If you have any questions regarding these instructions after you leave, please call us and we will be happy to assist you. [facility] Your Care Team Attending Physician Riley Simpson MD Discharging Providers Riley Simpson MD Reason for Admission CARPAL TUNNEL LEFTDS CS Tests Performed Below is a partial list of the tests performed during your hospitalization. You may have had other tests and procedures not included in this list. Please discuss all test results with your provider. Primary Care Provider Humera Mcgowan MD Advance Directive Health Care Proxy on File Yes - Health Care Proxy Discharge Vitals Temperature: 98.4 DegF Height: 157.48 cm Pulse Rate: 65 bpm Weight: 86.8 kg Respiratory Rate:??14 br/min??Low Body Mass Index:??35 kg/m2??Critical Systolic Blood Pressure:??145 mm Hg??High Body surface area: 1.95 Diastolic Blood Pressure: 62 mm Hg ?? Oxygen Saturation: 97 % ?? Studies Pending All tests and labs ordered during this hospital stay have been completed unless listed below. Please discuss all pending results with your provider listed above in these instructions. ?? No incomplete studies found What to do next Instructions From Your Doctor Discharge Orders Instructions from your Care Team Ice 20 min on 20 min off while awake Perform range of motion with fingers?? Elevate on pillows while lying or sitting Use sling while block is working (about 24 hours) Follow-up as scheduled Call MD office with any concerns Scheduled Follow-Up Appointments 2022 8:45 AM EST ?? With: Jai Feliciano MD Where: [facility] [place] [address]- Status: Pending Wednesday 10:40 AM EST ?? With: Humera Mcgowan MD Where: Primary Care [address] [address]- Status: Pending Wednesday 11:00 AM EST ?? With: Humera Mcgowan MD Where: Primary Care [address] [address]- Status: Pending You Need to Schedule the Following Appointments Follow Up with??Riley Simpson Where: [address] [facility] [place] [address]- Business (1) Follow Up with??Humera Mcgowan When:??In 0 days Where: [address] [facility] [place] [address]- Business (1) Discharge Medications JUVENCIO MCINTYRE :1940 Visit Date:04/09/2023 Medications: Please continue your medications until treatment is completed or stopped by your provider. Medications not listed below should be discontinued. Discuss any questions related to medications with your provider. What How Much When Instructions Next Dose Unchanged Amoxicillin (amoxicillin 500 mg oral capsule) 4 capsule Oral Once given 1 hour prior to the procedure ?? Unchanged Aspirin (aspirin 81 mg oral capsule) 1 capsule Oral Every 4 hours Unchanged Atropine / Diphenoxylate (Lomotil 0.025 mg-2.5 mg oral tablet) 1 tab(s) Oral 4 times a day as needed for for loose stool Unchanged BuPROpion (buPROPion 100 mg/ 12 hours (SR) oral tablet, extended release) 1 tab(s) Oral Daily Unchanged Calcium And Vitamin D Combination (Colleton Calcium with Vitamin D 500 IU) Oral Twice a day Unchanged Carvedilol (carvedilol 25 mg oral tablet) 1 tab(s) Oral Twice a day Unchanged Cyanocobalamin (Vitamin B12 500 mcg oral tablet) 1 tab(s) Oral Daily Unchanged dexlansoprazole (dexlansoprazole 30 mg oral delayed release capsule) 1 capsule Oral Daily Unchanged Diltiazem (DilTIAZem (Eqv-Cardizem CD) 360 mg/ 24 hours oral capsule, extended release) 1 capsule Oral Daily Unchanged Escitalopram (escitalopram 5 mg oral tablet) 1 tab(s) Oral Daily Unchanged Furosemide (furosemide 20 mg oral tablet) 1 tab(s) Oral Twice a day Unchanged Gabapentin (gabapentin 100 mg oral capsule) 1 capsule Oral 3 times a day as needed for Pain , Moderate Unchanged Levothyroxine (levothyroxine 125 mcg (0.125 mg) oral tablet) 1 tab(s) Oral Daily Unchanged Lutein 25 Milligram Oral Daily Unchanged Meclizine (meclizine 25 mg oral tablet) 1 tab(s) Oral 3 times a day as needed for for dizziness Unchanged Miscellaneous Rx (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 Unchanged Nitroglycerin (nitroglycerin 0.3 mg sublingual tablet) 1 tab(s) Sublingual Every 5 minutes as needed for for chest pain If chest pain not relieved in 5 minutes after first dose, seek immediate medical attention must be dispensed & stored in original containers not to exceed 3 doses/ 15 min--if pain persists, seek medical attention ?? Unchanged Rosuvastatin (rosuvastatin 10 mg oral tablet) 1 tab(s) Oral Daily Next Tylenol: Anytime Allergies (NKA means No Known Allergies) codeine??(fainting) niacin??(rash) sulfADIAZINE??(rash) Valuables and Belongings I fully understand and agree that [facility] accepts no responsibility for all my personal property including clothing, toilet articles, radios, jewelry, dentures, hearing aids, rings, money, or any other property that is in my possession or is brought to me after admission. I understand certain valuables may be placed in a hospital safe for a short period of time. I understand that the hospital is not liable for loss or damage due to accident, fire, or other natural occurrence while said property is in the safe. I accept full responsibility for any personal property that I keep with me, and will not hold the hospital responsible in case of loss or disappearance. I acknowledge that i have been encouraged to send valuables and belongings home. ?? Review of Valuable and Belonging List: With patient Date for Pt to Sign Valuables/Belongings: 04/09/23 12:32:00 ?? Valuables & Belongings ?? Clothes Electronic devices Jewelry Monetary Items Personal devices Miscellaneous Medications (Valuables) Valuables at Bedside Jacket, Pants, Shirt, Shoes, Undergarments ? Cane ? Valuables Sent Home ? Valuables Sent to Security ? Common Emergency Awareness Tips IS IT A STROKE? Act FAST and Check for these signs: FACE Does the face look uneven? ARM Does one arm drift down? SPEECH Does their speech sound strange? TIME Call at any sign of stroke ?? Heart Attack Signs Chest discomfort: Most heart attacks involve discomfort in the center of the chest and lasts more than a few minutes, or goes away and comes back. It can feel like uncomfortable pressure, squeezing, fullness or pain. Discomfort in upper body: Symptoms can include pain or discomfort in one or both arms, back, neck, jaw or stomach. Shortness of breath: With or without discomfort. Other signs: Breaking out in a cold sweat, nausea, or lightheaded. Remember, MINUTES DO MATTER. If you experience any of these heart attack warning signs, call to get immediate medical attention! ?? Smoking can increase your chances of developing chronic health problems and can cause harmful effects to other family members in your house. If you smoke, you are strongly encouraged to quit. Please call [facility] Link at [phone] or [phone] ([phone]) or log in to [email or web address] for referrals to smoking cessation programs. ?? 180 Suicide & Crisis Lifeline is available 07/12 if you or someone you know needs to find a reason to keep living. By calling 897 you'll be connected to a skilled, trained counselor at a crisis center in your area. INPATIENT DISCHARGE INSTRUCTIONS SIGNATURE PAGE JUVENCIO MCINTYRE Location:[facility] Registration Date and Time:04/09/2023 11:20 EST Primary Care Physician: Juan M LÓPEZ, Humera Leonard, Attending Physician: Riley Simpson MD, I JUVENCIO MCINTYRE, have received the above patient education materials/instructions and have verbalized understanding. If ambulance or transport services are being used I further acknowledge being given a choice of service. ?? If you need to contact me, please call me at this number: CIS . Patient/Pack Room Operator Name: Juvencio Mcintyre Patient/Pack Room Operator Signature: Relationship to Patient: Patient Witness Name/Signature: Date: 04/09/2023 * Jie Tillman RN: PERFORM, SIGN, VERIFY Event Display: Patient Education Handout Authored Date: [id number] * Jie Tillman RN: PERFORM Event Display: Patient Education Leaflets Authored Date: [id number] Surgery Medical Daystay Surgical Overnight Discharge Instructions ?? 295 Medical Daystay/Surgical Overnight Discharge Instructions ? Since your coordination and judgment may be altered by medication and/or anesthesia, a responsible adult must drive you home from the hospital. ? If you have received medication for pain or sedation while under our care, you should not drive, operate machinery, drink alcohol, or sign any legal documents for 24 hours.?? You should have someone with you at home tonight. ? Remain at home the day of discharge.?? You may be up and about unless otherwise instructed by your physician. ? You may resume your daily prescription medication schedule.?? Any depressant medication should be avoided for 24 hours unless otherwise instructed by your surgeon or anesthesiologist. ? Call your physician for a follow-up appointment.? If you experience unusual or severe pain not relied by your pain medication, excessive bleedingor drainage, persistent nausea and vomiting, excessive swelling or redness, foul odor from incisionsite or fever over 100.6F, you need to call your physician. ? A follow-up phone call by a nurse will be made the day after your procedure.?? If you have stayed with us over night, you will not be receiving a follow-up phone call. ? Nausea and vomiting are a common side effect of prescription pain medication.?? We recommend that pills are not taken on an empty stomach.?? While taking any prescription pain medication you should not drive or drink alcohol. ? Patient Care team information Care Team Personnel Name: Fatou Rahman RN Position: [facility] RN Member Role: Primary Care Nurse Name: Abbey Taylor RN Position: [facility] AMB Nurse Member Role: Primary Care Nurse Name: Dana Moreno RN Position: [facility] SN RN Member Role: Primary Care Nurse Name: Ashlie Moreno Position: [facility] Outreach Member Role: Lifetime Consulting Physician Name: Humera Mcgowan MD Position: [facility] Physician - Primary Care Member Role: PCP Address: Address: [address] [facility] [place] [address]- Name: Cecilia Stephens RN Position: [facility] RN Member Role: Primary Care Nurse Name: Zoey Garcia Position: [facility] [place] Member Role: Primary Care Nurse Name: Alyssa Bridges RN Position: [facility] RN Member Role: Primary Care Nurse Care Team Related Persons Name: ANGEL MILES Address: home [address] [place] [address] Name: DAVID FITZPATRICK Address: home [address] [place] [address] Name: LENIN MCINTYRE Address: [place] [address]
--- OUTSIDE RECORDS SUMMARY | 2023-10-12 06:14 | XMS_ITS | Continuity of Care Document ---
Author Organization [facility] Address [address] [place] [address]- Care Team Providers Care Manufacturing Weaver Name Role Phone Juan M LÓPEZ, Humera Leonard Primary Care Physician Encounter [facility] ACCT R [id number] Date(s): 04/07/22 - 06/24/22 [facility] [address] [place] [address]- Attending Physician: Yahir Odonnell MD Admitting Physician: Yahir Odonnell MD Allergies, Adverse Reactions, Alerts Substance Reaction Severity Status codeine Active sulfADIAZINE Active niacin Active Immunizations Given and Recorded Vaccine Date Status Refusal Reason [id number] 12y+ bivalent booster vax 02/20/22 Recorded influenza virus vaccine, inactivated 02/16/22 Ulices rded SARS-CoV-2 mRNA ([id number]-lhwus) vax 08/27/21 Recorded tetanus/diphtheria/pertussis, acel(Tdap) 03/25/21 Recorded [...] 0 Refills, Soft Stop, 04/07/22 12:03:00 EST, [facility] #[id number], Partial fill upon patient request if the [...] ER Tablet Start Date: 04/27/19 Status: Ordered Schley Calcium with Vitamin D 500 IU By Mouth, 2 times a day, 0 Refills, Maintenance, 04/27/19 22:06:27 EST Start Date: 04/27/19 Status: Ordered Coreg 25 mg oral tablet 25 mg, 1, tablet, By Mouth, 2 times a day, # 180 tablet, Refills 1, Tot. Refills 1, Maintenance, 06/08/22 9:28:00 EST, Route to Pharmacy Electronically, [facility] #[id number], Partial fill uponpatient request if the prescription is for a schedu... Start Date: 06/08/22 Status: Ordered Dexilant 30 mg oral delayed release capsule 1 capsule = 30 mg, By Mouth, Daily, # 90 capsule, 1 Refills, Maintenance, 03/11/22 9:11:00 EDT, CR Capsule, [facility] #[id number], Partial fill upon patient request if the prescription is for aschedule II opioid drug., 158, glenny, 03/11/22 8:57:00... Start Date: 03/11/22 Status: Ordered dilTIAZem 360 mg/24 hours oral tablet, extended release 1 tablet = 360 mg, By Mouth, Daily, # 90 tablet, 1 Refills, Maintenance, 05/20/22 10:48:00 EST, ER Tablet, [facility] #[id number], Partial fill upon patient request if the [...] 5 Refills, Maintenance, 04/27/22 16:40:00 EST, Capsule, [facility] #[id number], Partial fill upon patient request if the [...] 01/05/20 14:23:00 EDT, Route to Pharmacy Electronically, [facility]/pharmacy #[id number] Tablet, 158, cm, 01/05/20 13:56:00 [...] 1 Refills, Maintenance, 05/20/22 10:49:00 EST, Capsule, [facility] #[id number], Partial fill upon patient request if the [...] Team Personnel Name: Fatou Rahman RN Position: [facility] RN Member Role: Primary Care Nurse Name: Abbey Taylor RN Position: [facility] PCO RN Member Role: Primary Care Nurse Name: Dana Moreno RN Position: [facility] RN Member Role: Primary Care Nurse Name: Ashlie Moreno Position: [facility] Outreach Member Role: Lifetime Consulting Physician Name: Humera Mcgowan MD Position: [facility] Primary Care Physician Member Role: PCP Address: Address: [address] [place] [address] [place] [address]- Name: Cecilia Stephens RN Position: [facility] SN RN Member Role: Primary Care Nurse Name: Zoey Crespo Position: [facility] RN Member Role: Primary Care Nurse Name: Alyssa Bridges RN Position: [facility] RN Member Role: Primary Care Nurse Care Team Related Persons Name: DAVID FITZPATRICK Address: home [address] [place] [address] Name: ALLEN LOPEZ Address: [address] [address] Name: LENIN MCINTYRE Address: [place] [address]
--- OUTSIDE RECORDS SUMMARY | 2023-10-12 06:14 | XMS_ITS | Continuity of Care Document ---
Author Organization [facility] Address [address] [place] [address]- Care Team Providers Care Translation Director Name Role Phone Juan M LÓPEZ, Humera Leonard Primary Care Physician [phone] [facility]counter [facility] Date[facility]s): 09/09/23 - 10/09/23 [facility] [address] [place], [place] [address] Attending Physician: AdmSinan garcia Admitting Physician: Admtr, Ar8 Referring Physician: Admtr, Ar8 Allergies, Adverse Reactions, Alerts Substance Reaction Severity Status codeine fainting Active sulfADIAZINE rash Active niacin rash Active Immunizations Given and Recorded Vaccine Date Status Refusal Reason influenza virus vaccine, inactivated 03/10/23 Give n influenza virus vaccine, inactivated 02/16/22 Ulices rded [id number] 12y+ bivalent booster vax 02/20/22 Recorded SARS-CoV-2 mRNA (ijacvbg-pkrm-aubzo) vax 08/27/21 Recorded tetanus/diphtheria/pertussis, acel(Tdap) 03/25/21 Recorded [...] ded tetanus-diphtheria toxoids (Td) 03/20/08 Recorded Medications aspirin 81 mg oral capsule 1 capsule [...] day, # 180 tablet, Refills 1, Maintenance, 06/14/23 19:16:00 EST, Route to Pharmacy Electronically, [facility] #[id number], 158, cm, 06/14/23 15:47:00 EST, Height,87.7, kg, 06/14/23 15:47:00 EST, Dry Weight Start Date: 06/14/23 Status: Ordered [place] Calcium with Vitamin D 500 IU By Mouth, 2 times a day, 0 Refills, Maintenance, 04/27/19 22:06:27 EST Start Date: 04/27/19 Status: Ordered dexlansoprazole 30 mg oral delayed release capsule 1 capsule, By Mouth, Daily, # 90 capsule, 1 Refills, Maintenance, 08/17/23 9:04:00 EDT, [facility] #[id number], 158, cm, 06/14/23 15:47:00 EST, Height, 87.7, kg, 06/14/23 15:47:00 EST, Dry Weight Start Date: 08/17/23 Status: Ordered DilTIAZem (Eqv-Cardizem CD) 360 mg/24 hours oral capsule, extended release 1 capsule, By Mouth, Daily, # 90 capsule, 1 Refills, Maintenance, 05/23/23 14:04:00 EST, [facility] #[id number], 157.48, cm, 04/15/23 8:55:00 EST, Height, 86.8, [...] 125 mcg (0.125 mg) oral tablet 1 tablet, By Mouth, Daily, # 90 tablet, 1 Refills, Maintenance, 10/05/23 10:09:00 EDT, [facility] #[id number], 158, cm, 09/09/23 12:07:00 EDT, Height, 87.7, kg, 06/14/23 15:47:00 EST, Dry Weight Start Date: 10/05/23 Status: Ordered Lomotil 0.025 mg-2.5 mg oral [...] dizziness, # 30 tablet, 0 Refills, Maintenance, 09/09/23 13:53:00 EDT, Tablet, Partial fill upon patient request if the prescription is for a schedule II opioid drug. Start Date: 09/09/23 Status: Ordered nitroglycerin 0.3 mg sublingual tablet [...] tablet, 1 Refills, Maintenance, 05/23/23 14:04:00 EST, [facility] #[id number], 157.48, cm, 04/15/23 8:55:00 EST, Height, 86.8, [...] Confirmed Active Diastolic CHF, chronic Confirmed Active Chronic kidney disease Confirmed Active CAD (coronary artery disease) Confirmed Active GERD (gastroesophageal reflux disease) Confirmed Active History of osteoporosis 1 Confirmed Active Irritable bowel syndrome (IBS) 2 Confirmed Active Anxiety and depression Confirmed Active Combined hyperlipidemia Confirmed Active Obese class I Confirmed Active ELIZABETH (obstructive sleep apnea) 3 Confirmed Active Old [place] (myocardial infarction) Confirmed Active DJD (degenerative joint disease) of knee Confirmed Active PAF (paroxysmal atrial fibrillation) Confirmed Active Pulmonary hypertension Confirmed Active Sacroiliac dysfunction Confirmed Active Senile [...] Abbey Taylor RN Position: [facility] AMB Nurse Member Role: Primary Care Nurse Name: Dana Moreno RN Position: [facility] SN RN Member Role: Primary Care Nurse Name: Ashlie Moreno Position: [facility] Outreach Member Role: Lifetime Consulting Physician Name: Humera Mcgowan MD Position: [facility] Physician - Primary Care Member Role: PCP Address: Address: [address] [place] [address] [place] [address]- Name: Cecilia Stephens RN Position: [facility] SN RN Member Role: Primary Care Nurse Name: Zoey Garcia Position: [facility] MA Member Role: Primary Care Nurse Name: Alyssa Bridges RN Position: [facility] RN Member Role: Primary Care Nurse Care Team Related Persons Name: ANGEL MILES Address: home [address] [place] [address] Name: DAVID FITZPATRICK Address: home [address] [place] [address] Name: LENIN MCINTYRE Address: [place] [address]
--- OUTSIDE RECORDS SUMMARY | 2023-10-12 06:14 | XMS_ITS | Continuity of Care Document ---
Author Organization [facility] ter Address [address] [place] [address]- Care Team Providers Care Supervisor Electric Motor Testing Name Role Phone Juan M LÓPEZ, Humera Leonard Primary Care Physician [facility] Date(s): 01/30/22 - 05/14/[address] [address] Attending Physician: Basil May MD Admitting Physician: Basil May MD Referring Physician: Basil May MD Allergies, Adverse Reactions, Alerts Substance Reaction Severity Status codeine Active sulfADIAZINE Active niacin Active Immunizations Given and Recorded Vaccine Date Status Refusal Reason [id number] 12y+ bivalent booster vax 02/20/22 Recorded influenza virus vaccine, inactivated 02/16/22 Ulices rded SARS-CoV-2 mRNA (gofceig-ypji-herbs) vax 08/27/21 Recorded tetanus/diphtheria/pertussis, acel(Tdap) 03/25/21 Recorded [...] 0 Refills, Soft Stop, 04/07/22 12:03:00 EST, [facility] #[id number], Partial fill upon patient request if the [...] ER Tablet Start Date: 04/27/19 Status: Ordered [place] Calcium with Vitamin D 500 IU By Mouth, 2 times a day, 0 Refills, Maintenance, 04/27/19 22:06:27 EST Start Date: 04/27/19 Status: Ordered Coreg 25 mg oral tablet 25 mg, 1, tablet, By Mouth, 2 times a day, # 180 tablet, Refills 0, Tot. Refills 0, Maintenance, 03/11/22 9:09:00 EDT, Route to Pharmacy Electronically, [facility] #[id number], Partial fill uponpatient request if the prescription is for a schedu... Start Date: 03/11/22 Status: Ordered Dexilant 30 mg oral delayed release capsule 1 capsule = 30 mg, By Mouth, Daily, # 90 capsule, 1 Refills, Maintenance, 03/11/22 9:11:00 EDT, CR Capsule, [facility] #[id number], Partial fill upon patient request if the [...] 5 Refills, Maintenance, 04/27/22 16:40:00 EST, Capsule, [facility] #[id number], Partial fill upon patient request if the [...] 01/05/20 14:23:00 EDT, Route to Pharmacy Electronically, [facility]/pharmacy #[id number] Tablet, 158, cm, 01/05/20 [...] 5 Refills, Maintenance, 04/27/22 16:40:00 EST, Capsule, [facility] #[id number], Partial fill upon patient request if the [...] Care Nurse Name: Abbey Taylor RN Position: [facility] PCO RN Member Role: Primary Care Nurse Name: Dana Moreno RN Position: [facility] RN Member Role: Primary Care Nurse Name: Ashlie Moreno Position: [facility] Outreach Member Role: Lifetime Consulting Physician Name: Humera Mcgowan MD Position: [facility] Primary Care Physician Member Role: PCP Address: Address: [address] [place] [address] Primary Care [place], [place] [address] Name: Cecilia Stephens RN Position: [facility] SN RN Member Role: Primary Care Nurse Name: Zoey Crespo Position: [facility] RN Member Role: Primary Care Nurse Name: Alyssa Bridges RN Position: [facility] RN Member Role: Primary Care Nurse Care Team Related Persons Name: DAVID FITZPATRICK Address: home [address] [place] [address] Name: ALLEN LOPEZ Address: home [address] [place] [id number] Name: LENIN MCINTYRE Address: [place] [address]
--- OUTSIDE RECORDS SUMMARY | 2023-10-12 06:14 | XMS_ITS | Continuity of Care Document ---
Author Organization [facility] Address [address] [place] [address]- Care Team Providers Care Envelope Stuffer Name Role Phone Juan M LÓPEZ, Humera Leonard Primary Care Physician [phone] Encounter [facility] ACCT R [id number] Date(s): 09/09/23 - 09/16/23 [facility] [address] [place] [address]- Attending Physician: Crow LÓPEZ, Lester Roberson Referring Physician: Jonh Rome MD Allergies, Adverse Reactions, Alerts Substance Reaction Severity Status codeine fainting Active sulfADIAZINE rash Active niacin rash Active Immunizations Given and Recorded Vaccine Date Status Refusal Reason influenza virus vaccine, inactivated 03/10/23 Give n influenza virus vaccine, inactivated 02/16/22 Ulices rded [id number] 12y+ bivalent booster vax 02/20/22 Recorded SARS-CoV-2 mRNA (ifozwsi-uucl-xksqs) vax 08/27/21 Recorded tetanus/diphtheria/pertussis, acel(Tdap) 03/25/21 Recorded [...] 06/14/23 19:16:00 EST, Route to Pharmacy Electronically, [facility] #[id number], 158, cm, 06/14/23 15:47:00 EST, Height,87.7, kg, 06/14/23 15:47:00 EST, Dry Weight Start Date: 06/14/23 Status: Ordered [place] Calcium with Vitamin D 500 IU By Mouth, 2 times a day, 0 Refills, Maintenance, 04/27/19 22:06:27 EST Start Date: 04/27/19 Status: Ordered dexlansoprazole 30 mg oral delayed release capsule 1 capsule, By Mouth, Daily, # 90 capsule, 1 Refills, Maintenance, 08/17/23 9:04:00 EDT, [facility] #[id number], 158, cm, 06/14/23 15:47:00 EST, Height, 87.7, kg, 06/14/23 15:47:00 EST, Dry Weight Start Date: 08/17/23 Status: Ordered DilTIAZem (Eqv-Cardizem CD) 360 mg/24 hours oral capsule, extended release 1 capsule, By Mouth, Daily, # 90 capsule, 1 Refills, Maintenance, 05/23/23 14:04:00 EST, [facility] #[id number], 157.48, cm, 04/15/23 8:55:00 EST, Height, 86.8, [...] 2 Refills, Maintenance, 12/30/22 6:22:00 EDT, Tablet, [facility] #[id number], Partial fill upon patient request if the [...] tablet, 1 Refills, Maintenance, 05/23/23 14:04:00 EST, [facility] #[id number], 157.48, cm, 04/15/23 8:55:00 EST, Height, 86.8, [...] (obstructive sleep apnea) 3 Confirmed Active Old [place] (myocardial infarction) Confirmed Active DJD (degenerative joint disease) of knee Confirmed Active PAF (paroxysmal atrial fibrillation) Confirmed Active Pulmonary hypertension Confirmed Active Sacroiliac dysfunction Confirmed Active Senile purpura Confirmed Active Neuroforaminal stenosis of lumbar spine Confirmed Active 1last DEXA 06/2022 improved to osteopenia 2With diarrhea. follows with GI 3on CPAP Procedures Procedure Date Related Diagnosis Body Site Status Pacemaker pulse generator Completed Stent in coronary artery Completed Watchman Device Completed Vital Signs Most recent to oldest [Reference Range]: 1 Height 158 cm (09/09/23 12:07 PM) Weight 86.0 kg (09/09/23 12:07 PM) Oxygen Saturation [94-100 %] 98 % (09/09/23 12:07 PM) Pulse Rate [55-90 bpm] 62 bpm (09/09/23 12:07 PM) Body Mass Index [18.5-24.99 kg/m2] 34.45 kg/m2 *>HHI* (09/09/23 12:07 PM) Blood Pressure [90-138/55-84 mm Hg] 127/ 65mm Hg (09/09/23 12:07 PM) Respiratory Rate [16-30 br/min] 18 br/mi n (09/09/23 12:07 PM) Blood pressure sites Arm, left (09/09/23 12:07 PM) Weight Obtained Via Standing scale (09/09/23 12:07 PM) Social History Social History Type Response Smoking Status Former smoker entered on: 01/24/14 Sex History and physical note * Event Display: History and Physical Hospital Authored Date: EKG study * Event Display: EKG Authored Date: Patient Care team information Care Team Personnel Name: Fatou Rahman RN Position: [facility] RN Member Role: Primary Care Nurse Name: Abbey Taylor RN Position: [facility] AMB Nurse Member Role: Primary Care Nurse Name: Dana Moreno RN Position: [facility] RN Member Role: Primary Care Nurse Name: Ashlie Moreno Position: [facility] Outreach Member Role: Lifetime Consulting Physician Name: Humera Mcgowan MD Position: [facility] Physician - Primary Care Member Role: PCP Address: Address: [address] [place] [id number] Name: Cecilia Stephens RN Position: [facility] RN Member Role: Primary Care Nurse Name: Zoey Garcia Position: [facility] [place] Member Role: Primary Care Nurse Name: Alyssa Bridges RN Position: [facility] RN Member Role: Primary Care Nurse Care Team Related Persons Name: DEQUANANGEL JOHN Address: home [address] [place] [address] Name: DAVID FITZPATRICK Address: home [address] [place] [address] Name: LENIN MCINTYRE Address: [place] [address]
--- OUTSIDE RECORDS SUMMARY | 2023-10-12 06:14 | XMS_ITS | Continuity of Care Document ---
Author Organization [facility] Brinda michelle Address [address] [place] [address] [address] [place] [address]- Care Team Providers Care Harness Fitter Name Role Phone Juan M LÓPEZ, Humera Leonard Primary Care Physician [facility] Date[facility]s): 01/07/23 - 03/14/23 [facility] [address] [place], [place] [address] Attending Physician: Placido Bolanos MD Referring Physician: Humera Mcgowan MD Allergies, Adverse Reactions, Alerts Substance Reaction Severity Status codeine Active sulfADIAZINE Active niacin Active Immunizations Given and Recorded Vaccine Date Status Refusal Reason influenza virus vaccine, inactivated 03/10/23 Give n influenza virus vaccine, inactivated 02/16/22 Ulices rded [id number] 12y+ bivalent booster vax 02/20/22 Recorded SARS-CoV-2 mRNA (iqanhrj-kayf-ogwlm) vax 08/27/21 Recorded tetanus/diphtheria/pertussis, acel(Tdap) 03/25/21 Recorded [...] 0 Refills, Soft Stop, 04/07/22 12:03:00 EST, [facility] #[id number], Partial fill upon patient request if the [...] 12/11/22 19:30:00 EDT, Route to Pharmacy Electronically, [facility] #[id number], 158, cm, 08/27/22 15:01:00 EDT, Height Start Date: 12/11/22 Status: Ordered [place] Calcium with Vitamin D 500 IU By Mouth, 2 times a day, 0 Refills, Maintenance, 04/27/19 22:06:27 EST Start Date: 04/27/19 Status: Ordered dexlansoprazole 30 mg oral delayed release capsule 1 capsule, By Mouth, Daily, # 90 capsule, 1 Refills, Maintenance, 02/20/23 14:43:00 EDT, [facility] #[id number], 158, cm, 01/22/23 16:01:00 EDT, Height Start Date: 02/20/23 Status: Ordered DilTIAZem (Eqv-Cardizem CD) 360 mg/24 hours oral capsule, extended release 1 capsule, By Mouth, Daily, # 90 capsule, 1 Refills, Maintenance, 11/23/22 11:28:00 EDT, [facility] #[id number], 158, cm, 08/27/22 15:01:00 EDT, Height Start [...] 03/10/23 15:20:00 EDT, Route to Pharmacy Electronically, [facility]#14697, Partial fill upon patient request if the pr... Start Date: 03/10/23 Status: Ordered levothyroxine 125 mcg (0.125 mg) oral tablet 1 tablet = 125 mcg, By Mouth, Daily, # 90 tablet, 2 Refills, Maintenance, 12/30/22 6:22:00 EDT, Tablet, [facility] #66175, Partial fill upon patient request if the prescription is for a schedule II opioid drug., 158, cm, 08/27/22 15:01:00 ED... Start Date: 12/30/22 Status: Ordered Lomotil 0.025 mg-2.5 mg oral tablet 1, tablet, By Mouth, 4 times a day, PRN, # 180 tablet, Refills 3, Tot. Refills 3, Maintenance, for loose stool, 01/05/20 14:23:00 EDT, Route to Pharmacy Electronically, [facility]/pharmacy #0950 Tablet, 158, cm, 01/05/20 13:56:00 EDT, [...] tablet, 1 Refills, Maintenance, 11/23/22 11:27:00 EDT, [facility] #[id number], 158, cm, 08/27/22 15:01:00 EDT, Height Start [...] Team Personnel Name: Fatou Rahman RN Position: [facility] RN Member Role: Primary Care Nurse Name: Abbey Taylor RN Position: [facility] Nurse Member Role: Primary Care Nurse Name: Dana Moreno RN Position: [facility] RN Member Role: Primary Care Nurse Name: Ahslie Moreno Position: [facility] Outreach Member Role: Lifetime Consulting Physician Name: Humera Mcgowan MD Position: [facility] Physician - Primary Care Member Role: PCP Address: Address: [facility] [place] [address]- Name: Cecilia Stephens RN Position: [facility] RN Member Role: Primary Care Nurse Name: Zoey Garcia Position: [facility] MA Member Role: Primary Care Nurse Name: Alyssa Bridges RN Position: [facility] RN Member Role: Primary Care Nurse Care Team Related Persons Name: DEQUANANGEL JOHN Address: home [address] [place] [address] Name: DAVID FITZPATRICK Address: home [address] [place] [address] Name: LENIN MCINTYRE Address: [place] [address]
--- OUTSIDE RECORDS SUMMARY | 2023-10-12 06:14 | XMS_ITS | Continuity of Care Document ---
Author Organization [facility] Address [address] [place] [address]- Care Team Providers Care Manager Database Administration Name Role Phone Juan M LÓPEZ, Humera Leonard Primary Care Physician [place] [facility] Date(s): 06/02/23 - 07/02/23 [facility] [address] [place] [address]- [place] Allergies, Adverse Reactions, Alerts Substance Reaction Severity Status codeine fainting Active sulfADIAZINE rash Active niacin rash Active Immunizations Given and Recorded Vaccine Date Status Refusal Reason influenza virus vaccine, inactivated 03/10/23 Give n influenza virus vaccine, inactivated 02/16/22 Ulices rded [id number] 12y+ bivalent booster vax 02/20/22 Recorded SARS-CoV-2 mRNA (jnbcceb-xpye-awhjn) vax 08/27/21 Recorded tetanus/diphtheria/pertussis, acel(Tdap) 03/25/21 Recorded [...] 06/14/23 19:16:00 EST, Route to Pharmacy Electronically, [facility] #[id number], 158, cm, 06/14/23 15:47:00 EST, Height,87.7, kg, 06/14/23 15:47:00 EST, Dry Weight Start Date: 06/14/23 Status: Ordered [place] Calcium with Vitamin D 500 IU By Mouth, 2 times a day, 0 Refills, Maintenance, 04/27/19 22:06:27 EST Start Date: 04/27/19 Status: Ordered dexlansoprazole 30 mg oral delayed release capsule 1 capsule, By Mouth, Daily, # 90 capsule, 1 Refills, Maintenance, 02/20/23 14:43:00 EDT, [facility] #[id number], 158, cm, 01/22/23 16:01:00 EDT, Height Start Date: 02/20/23 Status: Ordered DilTIAZem (Eqv-Cardizem CD) 360 mg/24 hours oral capsule, extended release 1 capsule, By Mouth, Daily, # 90 capsule, 1 Refills, Maintenance, 05/23/23 14:04:00 EST, [facility] #91570, 157.48, cm, 04/15/23 8:55:00 EST, Height, 86.8, [...] 2 Refills, Maintenance, 12/30/22 6:22:00 EDT, Tablet, [facility] #26125, Partial fill upon patient request if the [...] use, 09/19/20 7:54:00 EDT, Supply Start Date: 5/6/21 Status: Ordered Lutein = 25 mg, By [...] tablet, 1 Refills, Maintenance, 05/23/23 14:04:00 EST, [facility] #[id number], 157.48, cm, 04/15/23 8:55:00 EST, Height, 86.8, [...] Team Personnel Name: Fatou Rahman RN Position: [facility] RN Member Role: Primary Care Nurse Name: Abbey Taylor RN Position: [facility] AMB Nurse Member Role: Primary Care Nurse Name: Dana Moreno RN Position: [facility] RN Member Role: Primary Care Nurse Name: Ashlie Moreno Position: [facility] Outreach Member Role: Lifetime Consulting Physician Name: Juan M LÓPEZ, Humera Leonard Position: [facility] Physician - Primary Care Member Role: PCP Address: Address: [facility] [place] [address]- Name: Cecilia Stephens RN Position: [facility] SN RN Member Role: Primary Care Nurse Name: Zoey Garcia Position: [facility] [place] Member Role: Primary Care Nurse Name: Alyssa Bridges RN Position: [facility] RN Member Role: Primary Care Nurse Care Team Related Persons Name: ANGEL MILES Address: home [address] [place] [address] Name: DAVID FITZPATRICK Address: home [address] [place] [address] Name: LENIN MCINTYRE Address: [place] [address]
--- OUTSIDE RECORDS SUMMARY | 2023-10-12 06:15 | XMS_ITS | Continuity of Care Document ---
Author Organization [facility] Address [address] [place] [address]- Care Team Providers Care Shoe Repairman Name Role Phone Juan M LÓPEZ, Humera Leonard Primary Care Physician Encounter [facility] ACCT R [id number] Date(s): 04/13/22 - 05/13/22 [facility] [address] [place] [address]- Attending Physician: Sinan Albert Admitting Physician: Sinan Albert Referring Physician: Sinan Albert Allergies, Adverse Reactions, Alerts Substance Reaction Severity Status codeine Active sulfADIAZINE Active niacin Active Immunizations Given and Recorded Vaccine Date Status Refusal Reason [id number] 12y+ bivalent booster vax 02/20/22 Recorded influenza virus vaccine, inactivated 02/16/22 Ulices rded SARS-CoV-2 mRNA (nuwzhqj-yoqm-emjkg) vax 08/27/21 Recorded tetanus/diphtheria/pertussis, acel(Tdap) 03/25/21 Recorded [...] 0 Refills, Soft Stop, 04/07/22 12:03:00 EST, [facility] #[id number], Partial fill upon patient request if the [...] ER Tablet Start Date: 04/27/19 Status: Ordered [place] Calcium with Vitamin D 500 IU By Mouth, 2 times a day, 0 Refills, Maintenance, 04/27/19 22:06:27 EST Start Date: 04/27/19 Status: Ordered Coreg 25 mg oral tablet 25 mg, 1, tablet, By Mouth, 2 times a day, # 180 tablet, Refills 0, Tot. Refills 0, Maintenance, 03/11/22 9:09:00 EDT, Route to Pharmacy Electronically, [facility] #[id number], Partial fill uponpatient request if the prescription is for a schedu... Start Date: 03/11/22 Status: Ordered Dexilant 30 mg oral delayed release capsule 1 capsule = 30 mg, By Mouth, Daily, # 90 capsule, 1 Refills, Maintenance, 03/11/22 9:11:00 EDT, CR Capsule, [facility] #[id number], Partial fill upon patient request if the [...] 5 Refills, Maintenance, 04/27/22 16:40:00 EST, Capsule, [facility] #05929, Partial fill upon patient request if the [...] 5 Refills, Maintenance, 04/27/22 16:40:00 EST, Capsule, [facility] #[id number], Partial fill upon patient request if the [...] Team Personnel Name: Fatou Rahman RN Position: [facility] RN Member Role: Primary Care Nurse Name: Abbey Taylor RN Position: [facility] PCO RN Member Role: Primary Care Nurse Name: Dana Moreno RN Position: [facility] RN Member Role: Primary Care Nurse Name: Ashlie Moreno Position: [facility] Outreach Member Role: Lifetime Consulting Physician Name: Humera Mcgowan MD Position: [facility] Primary Care Physician Member Role: PCP Address: Address: [address] [place] [address] [place] [address]- Name: Cecilia Stephens RN Position: [facility] SN RN Member Role: Primary Care Nurse Name: Zoey Crespo Position: [facility] RN Member Role: Primary Care Nurse Name: Alyssa Bridges RN Position: [facility] RN Member Role: Primary Care Nurse Care Team Related Persons Name: DAVID FITZPATRICK Address: [address] [place] [address] Name: ALLEN LOPEZ Address: home [address] [place] [address] Name: LENIN MCINTYRE Address: [place] [address]
--- OUTSIDE RECORDS SUMMARY | 2023-10-12 06:15 | XMS_ITS | Patient Health Record ---
Author Organization [facility] Address [address] [place] [address] Care Team Providers Care Aix Architect Name Role Phone Beau Winters Unavailable [phone] ALLERGIES Allergen (clinical drug ingredient) Drug/Non Drug Allergy documented on EMR Reaction Allergy Type Onset Date Status clarithromycin Biaxin GI upset Drug Allergy Ac tive erythromycin Erythromycin GI upset Drug Allergy A ctive Niacin Unknown Drug Allergy Active azithromycin Zithromax Z-Rojelio GI upset Drug Allergy Active aspirin Aspirin Emprin/Hepatit is Has to be a baby aspirin Drug Allergy Active codeine Codeine Fainting Drug Allergy Active Substance with sulfonamide structure and antibacterial mechanism of action (substance) Sulfa Antibiotics Unknown Drug Allergy Active REASON FOR REFERRAL No Information MEDICATIONS Medication SIG (Take, Route, Frequency, Duration) Notes Start Date End Date Status Levothyroxine Sodium 112 mcg Active Citracal Plus 400 units Not-Taking Escitalopram Oxalate 20 mg Active Keflex 500 MG 1 capsule Orally every 12 hrs for 5 days 06/14/2015 Not-Taking Nitroglycerin .4 mg 1 capsule Orally Three times a day for 30 day(s) prn Active Meclizine HCl prn Active Aspirin 81 mg Active Carvedilol 3.125 MG 1 tablet with food Orally Twice a day Active buPROPion HCl ER (XL) 100 mg Once a day Active Ipratropium Hamilton HFA Not-Taking Calcium + D 400 IU A ctive Diphenoxylate-Atropine 2.5-0.025 MG/5ML 5 ml as needed Orally Four times a day Not-Taking Crestor 10 MG 1 tablet Orally daily for 30 days Active Doxycycline Hyclate 100 MG 1 capsule Orally Once a day for 10 day(s) 06/05/2022 Not-Taking dilTIAZem HCl 240mg Active Vitamin B12 500 mcg Not-Taking Dexilant 30 MG Orally Once a day Active Tylenol 500 mg Not-T aking Irbesartan 300 MG Orally once a day Not-Taking Amiodarone HCl 200 MG 1 tablet Orally On ce a day for 30 day(s) Not-Taking amLODIPine Besylate Not-Taking Metoprolol Tartrate 50 MG Orally Not-Taking Imodium A-D 2 mg Not -Taking Plavix 75 MG 1 tablet Orally Once a day for 30 day(s) as needed Not-Taking Tylenol Not-Taking Citalopram & Diet Manage Prod Not-Taking Cephalexin 500 mg prn No t-Taking busPIRone HCl Not-Ta lynda Eliquis 5 MG as directed Orally Not-Taking IMMUNIZATIONS Vaccine Route Administration Date Status Comme nts COVID-19 Pfizer BioNTech Vaccine Unknown 07/14/2020 Adm inistered SOCIAL HISTORY Tobacco Use: Social History Observation Description Date Details (start date - stop date) Former Smoker NA - NA Sex Assigned At : Social History Observation Description Sex Assigned At Unknown Tobacco Use/Smoking Question Answer Notes Are you a: former smoker When did you stop smoking? 1979 Additional Findings: Tobacco Non-User Current no n-smoker Alcohol Screen Question Answer Notes Did you have a drink containing alcohol in the p ast year? No Points 0 Interpretation Negative Tobacco use other than smoking: Question Answer Notes Are you an other tobacco user? No PROBLEMS Problem Type ICD Code Onset Dates Problem Status W/U Status Risk SNOMED Code Notes Problem Tinea unguium (B35.1) Active confirmed Tinea unguium (314472996) Problem Unspecified atherosclerosis of [place] arteries of extremities, bilateral legs (I70.203) Active confirmed Atherosclerosis of [place] arteries of the extremities (532839461856711) Problem Other hammer toe(s) (acquired), right foot (M20.41) Active confirmed Acquired hammer toe of right foot (6987693012267834 ) Problem Other hammer toe(s) (acquired), left foot (M20.42) Active confirmed Acquired hammer toe of left foot (6627271619056737 ) VITAL SIGNS Height 5 ft 3 in in 09/14/2023 Weight 189 lbs 09/14/2023 BMI 33.48 kg/m2 09/14/2023 Encounters Encounter Location Date Provider Diagnosis [address] [address] 12/11/2022 Beau Winters Tinea unguium B35.1 ; Ingrowing nail L60.0 ; Pain in right toe(s) M79.674 ; Pain in left toe(s) M79.675 ; Other hammer toe(s) (acquired), left foot M20.42 ; Other hammer toe(s) (acquired), right foot M20.41 and Unspecified atherosclerosis of [place] arteries of extremities, bilateral legs I70.[address] [address] 03/12/2023 BeauMedina Tinea unguium B35.1 ; Ingrowing nail L60.0 ; Pain in right toe(s) M79.674 ; Pain in left toe(s) M79.675 ; Other hammer toe(s) (acquired), left foot M20.42 ; Other hammer toe(s) (acquired), right foot M20.41 and Unspecified atherosclerosis of [place] arteries of extremities, bilateral legs I70.[address] [address] 06/11/2023 Beau Winters [address] [address] 06/18/2023 Beau Winters Tinea unguium B35.1 ; Ingrowing nail L60.0 ; Pain in right toe(s) M79.674 ; Pain in left toe(s) M79.675 ; Other hammer toe(s) (acquired), left foot M20.42 ; Other hammer toe(s) (acquired), right foot M20.41 and Unspecified atherosclerosis of [place] arteries of extremities, bilateral legs I70.[address] [address] 09/14/2023 Beau Winters Tinea unguium B35.1 ; Ingrowing nail L60.0 ; Pain in right toe(s) M79.674 ; Pain in left toe(s) M79.675 ; Other hammer toe(s) (acquired), left foot M20.42 ; Other hammer toe(s) (acquired), right foot M20.41 and Unspecified atherosclerosis of [place] arteries of extremities, bilateral legs I70.203 [facility] [place] [address] [address] 09/24/2023 Beau Winters ASSESSMENTS Encounter Date Diagnosis Assessment Notes Treatment Notes Treatment Clinical Notes 12/11/2022 Tinea unguium (ICD-1 0 - B35.1) 03/12/2023 Tinea unguium (ICD-1 0 - B35.1) 06/18/2023 Tinea unguium (ICD-1 0 - B35.1) 09/14/2023 Tinea unguium (ICD-1 0 - B35.1) 09/14/2023 Ingrowing nail (ICD- 10 - L60.0) 06/18/2023 Ingrowing nail (ICD- 10 - L60.0) 03/12/2023 Ingrowing nail (ICD- 10 - L60.0) 12/11/2022 Ingrowing nail (ICD- 10 - L60.0) 12/11/2022 Pain in right toe(s) (ICD-10 - M79.674) 03/12/2023 Pain in right toe(s) (ICD-10 - M79.674) 06/18/2023 Pain in right toe(s) (ICD-10 - M79.674) 09/14/2023 Pain in right toe(s) (ICD-10 - M79.674) 09/14/2023 Pain in left toe(s) (ICD-10 - M79.675) 06/18/2023 Pain in left toe(s) (ICD-10 - M79.675) 03/12/2023 Pain in left toe(s) (ICD-10 - M79.675) 12/11/2022 Pain in left toe(s) (ICD-10 - M79.675) 12/11/2022 Other hammer toe(s) (acquired), left foot (ICD-10 - M20.42) 03/12/2023 Other hammer toe(s) (acquired), left foot (ICD-10 - M20.42) 06/18/2023 Other hammer toe(s) (acquired), left foot (ICD-10 - M20.42) 09/14/2023 Other hammer toe(s) (acquired), left foot (ICD-10 - M20.42) 09/14/2023 Other hammer toe(s) (acquired), right foot (ICD-10 - M20.41) 06/18/2023 Other hammer toe(s) (acquired), right foot (ICD-10 - M20.41) 03/12/2023 Other hammer toe(s) (acquired), right foot (ICD-10 - M20.41) 12/11/2022 Other hammer toe(s) (acquired), right foot (ICD-10 - M20.41) 12/11/2022 Unspecified atherosclerosis of [place] arteries of extremities, bilateral legs (ICD-10 - I70.203) 03/12/2023 Unspecified atherosclerosis of [place] arteries of extremities, bilateral legs (ICD-10 - I70.203) 06/18/2023 Unspecified atherosclerosis of [place] arteries of extremities, bilateral legs (ICD-10 - I70.203) 09/14/2023 Unspecified atherosclerosis of [place] arteries of extremities, bilateral legs (ICD-10 - I70.203) PLAN OF TREATMENT Pending Test Test Name Order Date [id number] NAIL, 6 OR MORE 02/24/2011 44731-TPNEQIZ NAIL, 6 OR MORE 05/08/2011 59807-WIUEYCT NAIL, 6 OR MORE 10/20/2011 77585-KHWUIXD NAIL, 6 OR MORE 01/10/2013 15032-CVHRFCO NAIL, 6 OR MORE 04/04/2013 53619-VDOEDFV NAIL, 6 OR MORE 06/16/2013 64491-EOFTBLN NAIL, 6 OR MORE 12/22/2016 77252-CEHHRVT NAIL, 6 OR MORE 07/24/2011 29850-CYVNOVT NAIL, 6 OR MORE 01/22/2012 97243-TMZHZFD NAIL, 6 OR MORE 04/22/2012 34534-RXLWGSD NAIL, 6 OR MORE 07/26/2012 37127-TXYQETO NAIL, 6 OR MORE 10/25/2012 52306-OGJMMGP NAIL, 6 OR MORE 08/25/2013 10197-GCGCQMR NAIL, 6 OR MORE 11/21/2013 85492-QAGIRNR NAIL, 6 OR MORE 02/20/2014 54579-XHODVMS NAIL, 6 OR MORE 05/22/2014 81869-OLCWSDG NAIL, 6 OR MORE 08/14/2014 58800-FIBRWTQ NAIL, 6 OR MORE 10/30/2014 10940-OANJNZT NAIL, 6 OR MORE 01/04/2015 51336-SLFYHHR NAIL, 6 OR MORE 03/15/2015 58827-MNHDSNR NAIL, 6 OR MORE 06/14/2015 22924-RQZHJSY NAIL, 6 OR MORE 09/13/2015 44432-PUIENIB NAIL, 6 OR MORE 12/06/2015 05932-CTTMZAN NAIL, 6 OR MORE 01/03/2016 47230-KEHUFWG NAIL, 6 OR MORE 01/17/2016 61062-CLGRJWF NAIL, 6 OR MORE 04/17/2016 52253-JSOMKZA NAIL, 6 OR MORE 04/21/2016 25715-UDNFYFW NAIL, 6 OR MORE 07/14/2016 00505-XGMWYDE NAIL, 6 OR MORE 10/13/2016 33167-ARPCGZD NAIL, 6 OR MORE 03/26/2017 96418-HJLKDSM NAIL, 6 OR MORE 01/07/2018 36707-EZVKAWY NAIL, 6 OR MORE 03/11/2018 89915-OHNVVYK NAIL, 6 OR MORE 06/25/2017 79655-BVYHNUP NAIL, 6 OR MORE 10/08/2017 17340-Vucycndu Plate 10/20/2016 79127-Dktiqtsv Plate 06/25/2017 39108-Dmifkqhr Plate 06/14/2015 25609-Lzbtoixf Plate 01/22/2012 97993-Agggqcgi Plate 03/15/2015 55937-Wfuuaanp Plate 01/04/2015 63761-Zvfwqwao Plate 10/30/2014 73344-Rxrmebmj Plate 08/14/2014 82641-Ggtslfiz Plate 05/22/2014 37799-Tkwweukn Plate 02/20/2014 64569-Xtieghus Plate 11/21/2013 84762-Mhtuwloj Plate 10/25/2012 00479-Wxipwbfi Plate 07/26/2012 58971-Ntowrisf Plate 04/22/2012 86433-Huwdconh Plate 07/24/2011 35769-Wfehviio Plate 01/10/2013 12972-Fpkvgacu Plate 02/24/2011 52944-Tggkkjvw Plate 10/20/2011 73068-Hceftuxo Plate 05/08/2011 49038-Ysuwzkjj Plate Each Additional 51903- Debride <25 sq cm 03/15/2015 52335- Debride <25 sq cm 05/08/2011 50710- Debride <25 sq cm 02/24/2011 38440- Debride <25 sq cm 07/24/2011 55847- Debride <25 sq cm 07/16/2017 38173- Debride <25 sq cm 06/28/2015 38918-BLUL SKIN LESIONS, OVER 4 07/25/19 20 66336-TDQQ SKIN LESIONS, OVER 4 10/24/19 20 70934-XEHX SKIN LESIONS, OVER 4 02/13/20 20 58914-TALR SKIN LESIONS, OVER 4 05/21/19 21 62975-HFBT SKIN LESIONS, OVER 4 08/21/19 21 26619-KMVT SKIN LESIONS, OVER 4 12/21/19 21 92381-OJMU SKIN LESIONS, OVER 4 03/21/20 21 45929-HJHD SKIN LESIONS, OVER 4 08/02/19 22 61736- Nail Unit Biopsy 01/07/2018 Next Appt Details Provider Name:Beau Winters, 11/23/2023 12:30:00 PM, [address] [facility], [facility] [address], [place], [address], Insurance Providers Payer Name Payer Address Payer Phone Subscriber Number Group Number Insured Name Patient Relationship to Insured Coverage Start Date Coverage End Date Medicare National [employer] [address] [facility] [address] [id number] Doreen Sutton Self - patient is the insured [facility] [address] [place] [address] [phone] [id number] Doreen Sutton Self - patient is the insured MEDICAL (GENERAL) HISTORY Medical History History ICD Code Arthritis Atrial fibrillation back, hip, knee pain chicken pox Cholesterol depression heart attack hepatitis C hypertension measles mumps osteoporosis Pacemaker psoriasis/eczema reflux thyroid disorder Vertigo Pulmonary hypertension Surgical History Surgery Date(Month/Year) cataract surgery bilateral eyes 2006 cholecystectomy 1992 left knee arthroscopy 05/26/2007 cardiac pacemeker 12/26/19 back surgery 08/05/22 Hospitalization History Reason Date(Month/Year) [place] 06/09/21 [facility]- a fib 02/21/21 [facility] Pacemaker 12/26/19 [facility] - heart beat down to 30 06/2019 [facility] - acute Afib onset 04/2019 [facility] - elevated BP, low heart rate- 7 day s 03/2012 [facility] heart attack 01/12, vertigo [facility] 10/19/09
[2023-10-12] MEDS: Lactated Ringers 1,000 ML 50 ML IVCONT (06:36)
[2023-10-12] MEDS: methocarbamoL 750 MG TABLET PO (07:12)
[2023-10-12] MEDS: Gabapentin 300 MG CAPSULE PO (07:12)
--- NOTE | 2023-10-12 07:32 | MHC.SHP ---
Pre-Procedural Eval Section A - 24 Hr Update-Section A only Date of Service: 10/12/23 The patient is an INPATIENT: No Changes since office visit: No Cold of Flu in the past 2 weeks, No New Medical Problems, No Changes in Medication and No Patient answered all questions The patient has been examined within 24 hours of the surgical procedure. The History & Physical has been completed within 30 days and I have reviewed it.: No Section B - Complete if H&P > 30 days Chief Complaint: S/P L3-5 OLIF Allergies: Allergies Allergy/AdvReac Type Severity Reaction Status Date / Time codeine Allergy Unconscious Verified 10/12/23 06:06 niacin Allergy Redness of Verified 10/12/23 06:06 Skin Sulfa (Sulfonamide Allergy Itching Verified 10/12/23 06:06 Antibiotics) NSAIDS (Non-Steroidal AdvReac Unknown Verified 10/12/23 07:05 Anti-Inflamma Review of Systems Sugical H&P ROS: Negative: Constitution, Cardiovascular, Respiratory, Neurological, Psychiatric, Hem-Onc, Allergic/Immunologic, Gastrointestinal, Genitourinary, Musculoskeletal, Integumentary, Endocrine and Eyes/Ears/Nose/Throat Exam Surgical H&P Exam: Normal: HEENT, Normal: Abdomen (soft ND, NT ) and Normal: Neurological (awake, alert, oriented ) Plan Diagnosis/Plan: Unchanged L3-5 Oblique lumbar interbody fusion Time Spent With Patient Time: Total time managing care of this patient today __5__ minutes.
--- NOTE | 2023-10-12 09:18 | PHA.MEDREC ---
Pharmacy Consult ? Medication Reconciliation Pharmacy has completed the medication reconciliation. Reviewed med rec done by nursing (Marianne).
--- NOTE | 2023-10-12 10:00 | W.PM.OPN ---
Operative Note Operative Note Date of Service: 10/12/23 Narrative: Preop Diagnosis: 1.) Lumbar degenerative disc disease 2.) Lumbar spinal stenosis Procedure: 1) L3-4, L4-5 discectomy, arthrodesis and implantation cage through an anterolateral, retroperitoneal approach 2) L3-L5 posterior instrumented fusion 3) allograft 4) injection of 10 cc of Exparel at the bilateral L3 transverse processi for a muscular erector spinae block and additional Exparel in paravertebral tissue for postop management Consent Informed Consent was obtained for this operation. I have explained the nature, purpose and benefits of the operation. I have discussed the risks and benefit of the operation including possible complications or adverse events with patient/family. Alternative(s) were discussed with the patient with their relative benefits and risks as well as the consequences of not accepting the operation were included in obtaining consent. Surgeon: WILDER SHEA MD, PHD Procedure Assisted By: truman Porras Description of Procedure This patient is suffering from back pain and lumbar radiculopathy with MRI showing severe degenerative disc disease L3-4 and L4-5 with central spinal stenosis, right foraminal stenosis and a retrolisthesis. The patient was offered an oblique lumbar interbody fusion L3-4, L4-5. The procedure complications were explained. The patient was consented. The patient was brought to the operating room and endotracheally intubated. The patient was turned in a lateral position with the left side up. Prep and drape was done followed by timeout. A small incision was made in the left lower abdominal quadrant. The muscle fascia was opened after which the 3 muscle layer was split to enter the retroperitoneal space. Dilators were docked in the anterior one third of the L4-5 disc space followed by a retractor. The retractor was opened. The L4-5 disc space was exposed. An annulotomy was done after which an elevator Russo was used to release the disc material from its endplates and to perforate the contralateral side. A partial discectomy was done. An 8 mm height trial implant was inserted. The discectomy was completed. The endplates were prepared. An 8 x 50 mm with 0 degree lordosis 4 web cage filled with allograft was inserted into the disc space under fluoroscopic guidance. Then attention was turned to the L3-4 disc space. The dilator was placed over the anterior 1/3. Retractor was inserted and opened after which an annulotomy was done. An elevate a Russo was used to for least the disc from the endplates and to perforate the contralateral annulus. There was no significant disc material to be removed due to the severe disc collapse. A 7 mm trial was inserted followed by a 8 x 50 mm with 6 degree lordosis 4 web cage filled with allograft. This resulted in an increase of disc height, foraminal height and jewish of the spinal alignment. The retractor was removed. Hemostasis was done. The incision was closed in 2 layers. Steri-Strips used to approximate incision. An OpSite with Tegaderm was used to cover the incision. This marked first part of the procedure. The patient was turned prone on the Shane spine table. 2C arms were installed for fluoroscopy. Prep and drape was done followed by a second timeout. 2 paramedian incisions were made lateral from the L3-L5 pedicles. The muscle fascia was opened after which the muscle layer was split bluntly to expose the posterolateral gutter. The following steps were taken. A pediguard tap was used to create a transpedicular trajectory into the vertebral body. A K wire was placed. A specially designed instrument was advanced over the K wire to decorticate the posterolateral gutter in preparation for the posterolateral fusion. A pedicle screw was advanced over the K wire and the K wire was removed. The steps were done for the bilateral L3, L4 and L5 pedicles. A total of 6 screws were placed with a diameter of 6.5 x 45 mm. Pedicle screws were connected with 75 mm valeriy bilaterally and locked down with locking caps. The extension towers were removed. The posterolateral gutter was filled with allograft to complete the posterolateral L3-L5 fusion Hemostasis was done and the incision was closed in 2 layers. Steri-Strips were used to approximate the incision. An OpSite were taken and was used to cover the incision. All sponge and needle counts were correct. Patient was extubated and transferred in stable is to recovery room. The procedure was done with the aid of a physician administrative support assistant who helped and interpretation of x-rays, placement of pedicle screws and closure of the paramedian incisions. Anesthesia: General Estimated Blood Loss (ml): 15 mL Duration of Surgery: 2 hours and 15 minutes Complications: None Postoperative Plan: Admit to inpatient for observation
[2023-10-12] MEDS: 0.9 % Sodium Chloride 1,000 ML 75 ML IVCONT (13:37)
[2023-10-12] MEDS: Acetaminophen 1,000 MG/100 ML PIGGYBACK 400 MG IV (13:38)
[2023-10-12] MEDS: HYDROmorphone HCl 2 MG TABLET PO (13:50)
[2023-10-12] MEDS: ceFAZolin Sodium/Dextrose,Iso 2 GM/50 ML PIGGYBACK IV ×2 (14:27→21:12)
[2023-10-12] MEDS: Calcium + Vitamin D 250 MG TABLET 500 MG PO (21:10)
[2023-10-12] MEDS: Aspirin Enteric Coated 81 MG TABLET.DR PO (21:11)
[2023-10-12] MEDS: Docusate Sodium 100 MG CAPSULE PO (21:12)
[2023-10-13] MEDS: ceFAZolin Sodium/Dextrose,Iso 2 GM/50 ML PIGGYBACK IV (02:02)
[2023-10-13] MEDS: Acetaminophen 1,000 MG/100 ML PIGGYBACK 400 MG IV ×2 (02:56→09:01)
[2023-10-13 03:09] VITALS: BP 131/60; PULSE 63; RESP 20; TEMP 36.3; O2SAT 97
[2023-10-13] MEDS: 0.9 % Sodium Chloride 1,000 ML 75 ML IVCONT (04:03)
[2023-10-13 04:15] VITALS: RESP 18
[2023-10-13] MEDS: Omeprazole 20 MG CAPSULE.DR PO (06:23)
[2023-10-13] MEDS: Levothyroxine Sodium 125 MCG TABLET PO (06:23)
[2023-10-13 07:38] VITALS: BP 105/51; PULSE 63; RESP 18; TEMP 36.2; O2SAT 91
[2023-10-13 08:00] VITALS: BP 105/51; PULSE 63; RESP 16; TEMP 36.2; O2SAT 91
[2023-10-13 08:10] VITALS: BP 105/51; PULSE 63; O2SAT 91
[2023-10-13] MEDS: dilTIAZem HCL CD 180 MG CAP.ER.24H 360 MG PO (09:01)
[2023-10-13] MEDS: carvediloL 25 MG TABLET PO (09:01)
[2023-10-13] MEDS: Atorvastatin Calcium 40 MG TABLET PO (09:01)
[2023-10-13] MEDS: buPROPion HCl XL 150 MG TAB.ER.24H 75 MG PO (09:01)
[2023-10-13] MEDS: Docusate Sodium 100 MG CAPSULE PO (09:02)
[2023-10-13] MEDS: Escitalopram Oxalate 5 MG TABLET PO (09:02)
[2023-10-13] MEDS: Furosemide 20 MG TABLET PO (09:04)
--- NOTE | 2023-10-13 09:34 | HO.POSTANES ---
Post Anesthesia Evaluation Post Anesthesia Evaluation Date of Service: 10/13/23 Vital Signs: Vital Signs Temp Pulse Resp BP Pulse Ox O2 Del Method O2 Flow Rate 10/13/23 08:10 63 105/51 L 91 L 10/13/23 08:00 97.2 F 63 16 105/51 L 91 L Room Air 10/13/23 07:38 97.2 F 63 18 105/51 L 91 L Room Air 10/13/23 04:15 18 10/13/23 03:09 97.4 F 63 20 131/60 97 Nasal Cannula 3 10/12/23 22:00 97.8 F 62 20 119/56 L 96 Nasal Cannula 3 Anesthesia: General Endotracheal-GETA Mental Status: Awake Pain Control: Satisfactory Nausea/Vomiting: None Hydration: Adequate Anesthesia-Related Issues: No Anes. Related Issues
--- NOTE | 2023-10-13 10:28 | HO.NEUROPN_ITS ---
Neurosurgery Operative Note Date of Service: 10/13/23 Narrative: POD: 1 Procedure: L3-4, L4-5 AKHIL Logan was seen this morning sitting upright in bed on 3 . She had just finished up meeting with the social media specialist and nurse traffic personnel supervisor regarding her placement. After physical therapy evaluation they recommended referral to a prison facility and/or acute rehab. She still reports mild pain in her low back which is well controlled with pain medications. She has been voiding well and tolerating diet. Unfortunately she has not yet been up out of bed but is planning to meet with physical therapy again later today to attempt ambulation. We discussed the need to get out of bed and ambulate/stay mobile. She was educated on the fact that the longer she stays in bed the worse off she will be statistically in terms of postoperative healing. Afebrile, vital signs stable. Strength 3/5 with left-sided knee flexion, however patient reports she recently had a knee replacement on the left and continues to have left-sided knee weakness. The rest of her lower extremity strength is 5/5. Back and oblique dressings have some staining without signs of hematoma. No active sanguineous drainage. Area is dry. Plan: Patient meets criteria to be medically discharged to a acute rehab facility or SNF. I will see her again at bedside with Dr. Rome later today when we are in between OR cases. She may be held for an additional night for placement if absolutely necessary, but there are no acute medical needs keeping her in the hospital at this time. Kvng Rome MD,PhD [facility] [place]
--- NOTE | 2023-10-13 10:41 | MHC.CM.PN ---
Addendum entered by Gabriela Garcia 10/13/23 12:34: DP:PT HAS BEEN MEDICALLY CLEARED FOR DC TO ACUTE REHAB. [facility] OFFERED BED AND PT IS AGREEABLE TO PLAN. BLS TRANSPORT BOOKED FOR 2 PM [facility]IA [facility] Original Note: [facility] DELIVERED PT LIVES ALONE. USES [facility] FOR MOBILITY. +HCP AT HOME, COPY REQUESTED. PCP DR. SOMMERS DP: PT HAS BEEN RECOMMENDED FOR STR, PT FIRST CHOICE [facility]. WILL NEED BLS TRANSPORT. CM WILL CONTINUE TO FOLLOW FOR ANY CHANGE TO DC PLAN.
--- NOTE | 2023-10-13 12:21 | PM.DS ---
DS: Providers Provider Date of Service: 10/13/23 Date of admission: 10/12/23 06:03 Primary care physician: Humera Mcgowan MD DS: Summary Time Attestation Discharge Coordination Time (in mins): 10 Quality: Safe Use of Opioids Does Pt have an Active Cancer Diagnosis on the Problem List?: No Quality: Stroke Does the patient have a stroke diagnosis?: No Physical Exam Vital Signs: Vital Signs: Last Vital Signs Temp 97.2 F 10/13/23 08:00 Pulse 63 10/13/23 08:10 Resp 16 10/13/23 08:00 BP 105/51 L 10/13/23 08:10 Pulse Ox 91 L 10/13/23 08:10 O2 Del Method Room Air 10/13/23 08:00 O2 Flow Rate 3 10/13/23 03:09 BMI result Body Mass Index 34.4 Discharge Plan Discharge Anticipated Discharge Date/Time: 10/13/23 12:22 Patient Disposition: Home, Self-Care Discharge Diagnosis: s/p L3-4, L4-5 OLIF Referrals: rashad [Other] - 1 Week Humera Mcgowan MD [Primary Care Provider] - 1 Week Discharge Medications: New oxycodone 5 mg tablet 5 mg PO Q6H PRN (Reason: severe pain (scale score 7-10)) Qty: 30 0RF Rx Instructions: Partial Fill upon patient request. Continued escitalopram oxalate 5 mg tablet 5 mg PO DAILY Qty: 90 1RF diphenoxylate-atropine 2.5-0.025 mg tablet 1 tab PO QID PRN (Reason: Diarrhea) Ocuvite with Lutein 300 mcg-200 mg-27 mg-2 mg Tablet 1 tab PO DAILY Rx Instructions: administer after a meal calcium carbonate-vitamin D3 600 mg-10 mcg (400 unit) Capsule 2 cap PO BEDTIME meclizine 25 mg Tablet 25 mg PO DAILY PRN (Reason: Dizziness Or Vertigo) nitroglycerin 0.3 mg Tablet, Sublingual 0.3 mg SUBLINGUAL Q5M PRN (Reason: Chest Pain) Rx Instructions: do not exceed 3 doses per episode acetaminophen [Arthritis Pain Relief (acetam)] 650 mg Tablet Extended Release 1,300 mg PO Q12H lutein-zeaxanthin 25-5 mg Capsule 1 cap PO DAILY dexlansoprazole 30 mg capsule,biphase delayed releas 30 mg PO DAILY@0630 carvedilol 25 mg tablet 25 mg PO BID diltiazem HCl 360 mg capsule,extended release 24hr 360 mg PO DAILY rosuvastatin 10 mg tablet 10 mg PO BEDTIME levothyroxine 125 mcg tablet 125 mcg PO DAILY@0600 furosemide 20 mg tablet 20 mg PO DAILY bupropion HCl 100 mg tablet sustained-release 12 hr 100 mg PO DAILY 90 Days Qty: 90 1RF Held aspirin 81 mg Tablet,Delayed Release (Dr/Ec) 81 mg PO BEDTIME Hold Instructions: Resume on 10/20/23. Discharge Orders: Discharge Order (Routine); Ordered 10/13/23 Ordered By: Kvng Valera Diet: Advance to usual diet Activity on Discharge: As tolerated Stand Alone Forms: Patient Portal Discharge page Print Language: Hong Konger Activity Restrictions/Additional Instructions: After your spinal surgery we ask you to observe the following restrictions/guidelines: Activity: With lumbar fusion surgery it is normal to have days in the first couple of weeks where you have increased leg pain. This usually lasts 1-2 days and self resolves with the continuation of medication. Attempt to stay mobile and continue activity as tolerated. It is normal to feel some discomfort as you increase your activity, but that will improve with time. We ask you avoid heavy lifting or activities that cause pain. As a general rule, 8lbs is a safe limit for lifting right after surgery. Walk as much as you feel comfortable but not to exhaustion. You will feel extra tired the first few days after surgery. Stay well hydrated. It is OK to walk up and down stairs You may return to driving when you are off narcotics (such as vicodin, oxycodone, dilaudid, etc), and you are back to normal functional capacity. If you have any concerns please check with office before driving. Return to work is specific to each patient and each surgery, so please speak with your doctor/PA at first follow up. Please bring paperwork such as FMLA at that time if you need it filled out. Medications: It is recommended that you take Tylenol 500 mg every 4 hours for the 1st week postoperatively, ?alongside ibuprofen 600 mg every 8 hours. We will give you a short supply of narcotics after surgery (usually one weeks worth). ??Please use this for breakthrough pain that is refractory to the Tylenol / ibuprofen If you need more please call the office but do not use more than prescribed. You will need to give our office 48 hours notice if you need narcotics refilled and we do not fill narcotics on weekends or evenings. If you are on a narcotic, it is a good idea to take a stool softener such as colace or senna to avoid constipation If you take blood thinner such as aspirin, Plavix, Coumadin, Effient, Eliquis etc for conditions such as Afib, DVT, Pulmonary embolus, coronary disease, stents etc please speak with your surgeon about specific details as to when you can resume these medications. You can resume NSAIDs on post op day 1 (eg: Motrin, Naproxen, etc). Follow up: Please call the office, , after surgery to arrange a 3 week follow up for wound check. Wound Care: You may remove your dressing on the first day after surgery. ?You may ?leave open to air. Please do not remove the steri strips underneath. they will fall off on their own in one week. IT IS NORMAL FOR THE WOUND TO OOZE OR BE BLOODY FOR A FEW DAYS AFTER SURGERY. ?IF THIS HAPPENS JUST PLACE NEW DRESSING OVER IT TO AVOID STAINING CLOTHES. You may shower on post op day # 1 We ask that you do not let the water soak the wound. If it does get wet, just towel dry lightly. Please do not scrub your incision or place any type of chemical/ointment on the wound. No tub baths, pools or jacuzzis for one month. If you have any leaking or redness from your wound, or fevers, please call office Care Plan Goals: Return to normal activity as tolerated Health Concerns: None Plan of Treatment: Return to normal activity as tolerated Assessment: See progress note from this a.m.
== END 2023-10-13 13:51 | DRG 460 ==
LOC: HO.SSSA 06:11 → HO.S3 11:19
PROVIDERS: Neurological Surgery; Nurse Practitioner; Admitting Provider Physician Assistant; PCP Internal Medicine; Visit Provider Physician Assistant
PROC: 0SG10A0 Fusion of 2 or more Lumbar Vertebral Joints with Interbody Fusion Device, Anterior Approach, Anterior Column, Open Approach (ICD-10-PCS; principal; 2023-10-12 07:30)
DX: M43.16 Spondylolisthesis, lumbar region (principal); M51.36 Other intervertebral disc degeneration, lumbar region; I25.10 Atherosclerotic heart disease of native coronary artery without angina pectoris; E03.9 Hypothyroidism, unspecified; Z95.5 Presence of coronary angioplasty implant and graft; Z79.890 Hormone replacement therapy; Z79.899 Other long term (current) drug therapy
CPT/HCPCS: 36415; 80048; 85027; 86850; 86900; 86901; 97116; 97162; C1713; C1889; C9290; J0131; J0665; J0690; J1100; J1170; J2371; J2405; J2598; J2704; J3010; L8699

== ENCOUNTER → 2023-10-12 06:03 | Outpatient (BNV) | payer MEDICARE, OTHER, SELFPAY | PROVIDERS: Admitting Provider Physician Assistant; PCP Internal Medicine; Visit Provider Neurological Surgery | DX: M48.061 Spinal stenosis, lumbar region without neurogenic claudication (principal) | CPT/HCPCS: 20936; 22558; 22585; 22612; 22614; 22840; 22853; 99024; 99499 ==

== ENCOUNTER 2023-11-26 15:14 | Outpatient (AMB) | payer MEDICARE, OTHER, SELFPAY ==
--- NOTE | 2023-11-26 15:17 | HO.SPINEOV ---
Intake Visit Reasons: 1st post op Intake Note: Ms. Sutton is here today for her 1st post-op visit. 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 She underwent a successful L3-5 oblique lumbar interbody fusion, but [facility] she was at home and had a series of unfortunate events that ultimately led to her being admitted to [facility]. It sounds like she may have had a syncopal event at home and was brought to [facility]. Unfortunately she was left there lying in a bed for number of days while they were adjusting her medications on and off. She ultimately ended up getting a severe pneumonia that required 5 days of intravenous antibiotics. She ended up at [facility], and now finally just got home a few days ago. She was very scared with a stay at [facility]. Her care there was sub par in she was very frustrated with the lack of any ability to get and he went help her do something as simple as get up to go to the bathroom. She has reported some pain along her lower sacral region but no significant back pain. I did x-rays here in the office today and her hardware looks excellent, her alignment is back to anatomic with the L3-4 and L4-5 disc spacers. The pedicle screws are intact and unchanged from their position in the operating room. I suspect she may just be dealing with the trauma of the fall and some soft tissue. That should heal with time. Her wounds on her back have all healed up nicely. She is able to stand up out of a chair and walk down the hallway with a cane. I expect she will continue to improve. She is going to work with PT and OT at home to continue efforts at mobility. I will see her back in 6 weeks. Kamran Rome MD, PhD [facility] Orders: Orders XR lumbar spine 4V min Today M43.16 - Spondylolisthesis, lumbar region Coding Level of Care Code Global (49368) Diagnoses Spondylolisthesis, lumbar region M43.16
== END 2023-11-26 16:02 | disposition home or self-care (01) ==
PROVIDERS: PCP Internal Medicine; Visit Provider Physician Assistant
DX: M43.16 Spondylolisthesis, lumbar region (principal)
CPT/HCPCS: 99024

== ENCOUNTER 2023-11-26 15:14 | Outpatient (REF) | payer MEDICARE, OTHER, SELFPAY ==
--- NOTE | ~2023-11-26 | XR_ITS ---
EXAMINATION: XR LUMBOSACRAL SPINE WITH OBLIQUES CLINICAL INFORMATION: Spondylolisthesis lumbar region. COMPARISON: 06/22/2023. TECHNIQUE: 4 views inclusive of flexion and extension views. FINDINGS: Diffuse demineralization. Mild dextroscoliosis of the lumbar spine. Status post posterior fixation with bilateral pedicular screws and rods spanning L3-L5 levels. There aren't disc spacers at L3-L4, and L4-L5. Hardware appears intact. Atherosclerotic aortoiliac calcifications. Grade 1 anterolisthesis of L5 on S1 with flexion and extension. Very minimal grade 1 retrolisthesis of L4 on L5 with flexion and extension. Spondylosis at L1-L2 and L2-L3. XR/XR lumbar spine 4V min IMPRESSION: 1. Status post posterior fixation spanning L3-L5. Hardware appears intact. 2. Grade 1 anterolisthesis of L5 on S1 with flexion and extension. Very minimal grade 1 retrolisthesis of L4 on L5 with flexion and extension.
== END 2023-11-26 15:15 | disposition home or self-care (01) ==
LOC: HO.HOSX 15:14
PROVIDERS: PCP Internal Medicine; Visit Provider Physician Assistant
DX: M43.16 Spondylolisthesis, lumbar region (principal); Z47.89 Encounter for other orthopedic aftercare; Z98.1 Arthrodesis status
CPT/HCPCS: 72110; 99212

== ENCOUNTER 2023-12-27 13:41 | Outpatient (AMB) | payer MEDICARE, OTHER, SELFPAY ==
--- NOTE | 2023-12-27 13:42 | A.SPINEOV_ITS ---
Intake Visit Reasons: 2nd post op Intake Note: Ms. Victoria is here today for her 2nd post-op visit. 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 She had been doing okay, but noticed abrupt o nset of pain in the lower lumbar region maybe near the lumbosacral junction. Nothing radiating down her legs. No loss of strength or weakness. The main discomfort occurs when she is lying down on her back or if she is lying on her left side particularly. Standing can be uncomfortable and sitting in hard chairs is very difficult as well. She does not report any trauma or falls since I last saw her. Her wounds are all healed up nicely but she does have tenderness over the area beneath the stab incisions on her lower back area. Her strength is normal. I looked at her x-rays again and I do not see anything obvious that would explain her pain. I think we need to look a little deeper her and make sure that the hardware has not started to loosen up. She is 83 and her bone quality is not the best. I will order the noncontrast lumbar CT at [facility] at her request and I will call her with the results. Kamran Rome MD, PhD [facility] Orders: Orders CT lumbar spine wo IV con Today M54.9 - Dorsalgia, unspecified Coding Level of Care Code Global (17713) Diagnoses Back pain M54.9
== END 2023-12-27 14:22 | disposition home or self-care (01) ==
PROVIDERS: PCP Internal Medicine; Visit Provider Physician Assistant
DX: M54.9 Dorsalgia, unspecified (principal)
CPT/HCPCS: 99024

== ENCOUNTER → 2023-12-27 13:41 | Outpatient (BNVA) | payer MEDICARE, OTHER, SELFPAY | PROVIDERS: PCP Internal Medicine; Visit Provider Physician Assistant | DX: M54.9 Dorsalgia, unspecified (principal) | CPT/HCPCS: 99212 ==

== ENCOUNTER 2024-01-03 13:33 | Outpatient (AMB) | payer MEDICARE, OTHER, SELFPAY ==
--- NOTE | 2024-01-03 12:17 | A.OFFPSYCH_ITS ---
Intake Intake Visit Reasons: depression Allergies codeine Allergy (Verified 12/27/23 13:46) Unconscious niacin Allergy (Verified 12/27/23 13:46) Redness of Skin Sulfa (Sulfonamide Antibiotics) Allergy (Verified 12/27/23 13:46) Itching NSAIDS (Non-Steroidal Anti-Inflamma Adverse Reaction (Verified 12/27/23 13:46) Unknown Medication List - Last Reconciled 01/03/24 by Bashir Bee MD acetaminophen ER (Arthritis Pain Relief (acetaminophen) ER) 1,300 mg PO Q12H aspirin 81 mg PO BEDTIME bupropion HCl SR 100 mg PO DAILY 90 days calcium carbonate-vitamin D3 600 mg-10 mcg (400 unit) 2 caps PO BEDTIME carvedilol 6.25 mg PO BID dexlansoprazole 30 mg PO DAILY@0630 diphenoxylate-atropine 2.5-0.025 mg 1 tab PO QID PRN escitalopram oxalate 5 mg PO DAILY levothyroxine 125 mcg PO DAILY@0600 lutein-zeaxanthin 25-5 mg 1 cap PO DAILY meclizine 25 mg PO DAILY PRN nitroglycerin 0.3 mg sublingual Q5M PRN oxycodone 5 mg PO Q6H PRN rosuvastatin 10 mg PO BEDTIME vit A,C and B-[id number]-[id number] 300 mcg-200 mg-27 mg-2 mg (Ocuvite with Lutein) 1 tab PO DAILY HPI- Psychiatric Chief Complaint: depression HPI Narrative: Pt seen in f/u had been hospitalized s/p laminectomy later blackout was [facility] had pneumonia now has pt ot [facility] 3 wks 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 Patient continues on Wellbutrin and 5 mg of escitalopram. Mood generally stable not overly depressed or anxious Past Psychiatric History: Past history of recurrent depression for many years. Has been generally stable for the past number of years use to see Dr. Newman for medication management and Dr. Oscar Llamas for psychotherapy Mental Status Exam Mental Status Exam Patient Appearance: Well Grooomed Patient Orientation: Person, Place, Time and Situation Level of Consciousness: Awake and Appropriate Patient Behavior: Appropriate Affect Description: Appropriate Patient Cognition Impaired: No Ability to Follow Directions: Good Speech Pattern: Clear Memory Description: Intact Hallucinations: None Delusions: Not Present Thought Process: Intact and Goal Oriented Thought Content: positive for Goal Oriented, negative for Suicidal Ideation or negative for Homicidal Ideation Judgement: Good Judgement and Insight: Patient mildly depressed and anxious about recent medical events but appears to be dealing with them Telehealth Telehealth Location of provider rendering services: practice address Location of patient: address on file Patient Identification confirmed using: Name, : Yes Telehealth method: video Patient verbally consented to treatment: Yes Patient verbally consented to billing insurance company: Yes Minutes spent on Phone/Video with Pt.: 35 Assessment and Plan Assessment & Plan (1) Major depression, recurrent, full remission: Status: Acute Code(s): F33.42 - Major depressive disorder, recurrent, in full remission (2) Spondylolisthesis, lumbar region: Status: Acute Code(s): M43.16 - Spondylolisthesis, lumbar region (3) Lumbar stenosis: Status: Acute Code(s): M48.061 - Spinal stenosis, lumbar region without neurogenic claudication Plan Could continue plan of care discussed option to get medical watch her Apple watch that might monitor for periods AFib and rate not overly depressed despite recent events continues to appreciate significant support system she has developed continue plan of care Medications: Refilled bupropion HCl SR 100 mg PO DAILY 90 tabs 1RF 90 days escitalopram oxalate 5 mg PO DAILY 90 tabs 1RF Counseling and coordination of Care Details-Self Mgmt counseling: Reviewed issues relating to dealing with chronic illness with recent exacerbation limitations and pain Medication management counseling: Effectiveness and Side effects Diagnosis and Prognosis Counseling: Adequacy of current interventions Details: I spent [38] minutes reviewing the record, seeing the patient and documenting in the medical record. Counseling provided to the patient/caregiver as outlined below. Addressed patient/caregiver concerns regarding current medication regime including effective adherence. Addressed patient/caregiver concerns regarding diagnosis and prognosis including accuracy of diagnosis, prognosis over time, impact of diagnosis. Addressed patient/caregiver concerns regarding impact of recent stressors. [facility] Medical History History of cardioversion Diarrhea SOB (shortness of breath) IBS (irritable bowel syndrome) Arthritis Obesity Depression GERD (gastroesophageal reflux disease) Thyroid disease Hyperlipidemia HTN (hypertension) Pulmonary hypertension Sleep apnea Opacity of lung on imaging study Hx of cardiac pacemaker Sick sinus syndrome Bradycardia Atrial tachycardia Presence of Watchman left atrial appendage closure device Myocardial infarction CAD (coronary artery disease) Atrial fibrillation and flutter Major depressive disorder, recurrent episode, in partial remission Surgical History H/O colonoscopy History of hemorrhoidectomy Hx of total knee replacement Hx of cataract extraction Hx of cholecystectomy Hx of carpal tunnel repair History of back surgery S/P placement of cardiac pacemaker H/O cardiac radiofrequency ablation History of coronary artery stent placement Social History Are you a primary health care legal assistant to a significant other at home: No Do you presently have visiting nurse or other home services: No Patient Tobacco Use Status: Former Tobacco user service: No Social History: Patient lives alone she is retired dealing with multiple medical issues has sister supports from the [employer] /neighbor Substance History: none Trauma History: none Coding Level of Care Code Tele Est Pt Level 3 (30952) Tele Therapy 30m w/E&M (31363) Diagnoses Major depression, recurrent, full remission F33.42 Spondylolisthesis, lumbar region M43.16 Lumbar stenosis M48.061
== END 2024-01-03 14:40 | disposition home or self-care (01) ==
LOC: HO.HOP 13:33
PROVIDERS: PCP Internal Medicine; Visit Provider Psychiatry & Neurology Psychiatry
DX: F33.42 Major depressive disorder, recurrent, in full remission (principal); M43.16 Spondylolisthesis, lumbar region; M48.061 Spinal stenosis, lumbar region without neurogenic claudication
CPT/HCPCS: 90833; 99213

== ENCOUNTER → 2024-01-03 13:33 | Outpatient (BNVA) | payer MEDICARE, OTHER, SELFPAY | PROVIDERS: PCP Internal Medicine; Visit Provider Psychiatry & Neurology Psychiatry ==

== ENCOUNTER 2024-05-01 15:16 | Outpatient (AMB) | payer MEDICARE, OTHER, SELFPAY ==
--- NOTE | 2024-05-01 12:16 | A.OFFPSYCH_ITS ---
Intake Intake Visit Reasons: depression Allergies codeine Allergy (Verified 12/27/23 13:46) Unconscious niacin Allergy (Verified 12/27/23 13:46) Redness of Skin Sulfa (Sulfonamide Antibiotics) Allergy (Verified 12/27/23 13:46) Itching NSAIDS (Non-Steroidal Anti-Inflamma Adverse Reaction (Verified 12/27/23 13:46) Unknown HPI- Psychiatric Chief Complaint: depression HPI Narrative: Pt seen in psych follow up had recent duress had viral syndrome ? pneumonia then given antiobtic got diarrhea. Pt does tend to get blue this time of the yr lives alone no family Tends to get blue this time of the year does generally feel stable on current dosing low-dose SSRI and Wellbutrin. At times feels somewhat alone Limited eyesight has had recurrence of chronic pain Past Psychiatric History: Past history of recurrent depression for many years. Has been generally stable for the past number of years use to see Dr. Newman for medication management and Dr. Oscar Llamas for psychotherapy Mental Status Exam Mental Status Exam Patient Appearance: Well Grooomed Patient Orientation: Person, Place, Time and Situation Level of Consciousness: Awake and Appropriate Patient Behavior: Appropriate Mood Description: Depressed (mild) Affect Description: Appropriate Patient Cognition Impaired: No Ability to Follow Directions: Good Speech Pattern: Clear Memory Description: Intact Hallucinations: None Delusions: Not Present Thought Process: Intact and Goal Oriented Thought Content: positive for Goal Oriented, negative for Suicidal Ideation or negative for Homicidal Ideation Judgement: Good Judgement and Insight: Patient mildly depressed and anxious about recent medical events but appears to be dealing with them Telehealth Telehealth Location of provider rendering services: practice address Location of patient: address on file Patient Identification confirmed using: Name, : Yes Telehealth method: video Patient verbally consented to treatment: Yes Patient verbally consented to billing insurance company: Yes Minutes spent on Phone/Video with Pt.: 30 Assessment and Plan Assessment & Plan (1) Major depressive disorder, recurrent episode, in partial remission: Status: Acute Code(s): F33.41 - Major depressive disorder, recurrent, in partial remission (2) Back pain: Status: Acute Code(s): M54.9 - Dorsalgia, unspecified (3) 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 Mood better by the end of the meeting no SI future oriented does get demoralized at times her limitations Medications: Refilled bupropion HCl SR 100 mg PO DAILY 90 tabs 1RF 90 days escitalopram oxalate 5 mg PO DAILY 90 tabs 1RF Counseling and coordination of Care Details-Self Mgmt counseling: Dealing with chronic medical issues Medication management counseling: Effectiveness and Side effects Diagnosis and Prognosis Counseling: Adequacy of current interventions Details: I spent [37] minutes reviewing the record, seeing the patient and documenting in the medical record. Counseling provided to the patient/caregiver as outlined below. Addressed patient/caregiver concerns regarding current medication regime including effective adherence. Addressed patient/caregiver concerns regarding diagnosis and prognosis including accuracy of diagnosis, prognosis over time, impact of diagnosis. Addressed patient/caregiver concerns regarding impact of recent stressors. [facility] Medical History History of cardioversion Diarrhea SOB (shortness of breath) IBS (irritable bowel syndrome) Arthritis Obesity Depression GERD (gastroesophageal reflux disease) Thyroid disease Hyperlipidemia HTN (hypertension) Pulmonary hypertension Sleep apnea Opacity of lung on imaging study Hx of cardiac pacemaker Sick sinus syndrome Bradycardia Atrial tachycardia Presence of Watchman left atrial appendage closure device Myocardial infarction CAD (coronary artery disease) Atrial fibrillation and flutter Major depressive disorder, recurrent episode, in partial remission Surgical History H/O colonoscopy History of hemorrhoidectomy Hx of total knee replacement Hx of cataract extraction Hx of cholecystectomy Hx of carpal tunnel repair History of back surgery S/P placement of cardiac pacemaker H/O cardiac radiofrequency ablation History of coronary artery stent placement Social History Are you a primary emergency care attendant to a significant other at home: No Do you presently have visiting nurse or other home services: No Patient Tobacco Use Status: Former Tobacco user service: No Social History: Patient lives alone she is retired dealing with multiple medical issues 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
--- OUTSIDE RECORDS SUMMARY | 2024-05-01 15:18 | XMS_ITS | Continuity of Care Document ---
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 Phone Humera Mcgowan MD Primary Care Physician Encounter [facility] [place] Date(s): 04/15/24 - 04/15/[address] [address]- Encounter Diagnosis Productive cough(Final) - 04/15/24 Discharge Disposition: A-D/C Home Attending Physician: Portia Naik MD Admitting Physician: Portia Naik MD Referring Physician: Not on Staff, Referring MD Encounter Type: Disch ES Allergies, Adverse Reactions, Alerts Substance Criticality Severity Reaction Reaction Severity Status codeine fainting Active sulfa drugs Active niacin rash Active Immunizations Given and Recorded Vaccine Date Status Refusal Reason influenza virus vaccine, inactivated 03/16/24 Give n influenza virus vaccine, inactivated 03/10/23 Give n influenza virus vaccine, inactivated 02/16/22 Ulices rded [id number] 12y+ bivalent booster vax 02/20/22 Recorded SARS-CoV-2 mRNA (niqunlg-vfnj-rajqo) vax 08/27/21 Recorded tetanus/diphtheria/pertussis, acel(Tdap) 03/25/21 Recorded [...] 03/20/08 Recorded Medications aspirin 81 mg oral delayed release tablet 81 mg, By Mouth, Daily, Refills 0, Maintenance, 11/03/23 3:49:00 PM EDT, Partial fill upon patient request if the prescription is for a schedule II opioid drug. Start Date: 11/03/23 Status: Ordered Repeat number: 1 buPROPion 100 mg/12 hours (SR) oral tablet, extended release 1 tablet = 100 mg, By Mouth, Daily, # 60 tablet, 0 Refills, Maintenance, 04/27/19 10:05:45 PM EST, ER Tablet Start Date: 04/27/19 Status: Ordered Quantity: 60.0 Unit: tablet Repeat number: 1 carvedilol 12.5 mg oral tablet 12.5 mg, 1, tablet, By Mouth, 2 times a day, # 180 tablet, Refills 0, Maintenance, 11/30/23 11:46:00AM EDT, Partial fill upon patient request if the prescription is for a schedule II opioid drug. Start Date: 11/30/23 Status: Ordered Quantity: 180.0 Unit: tablet Repeat number: 1 [place] Calcium with Vitamin D 500 IU By Mouth, 2 times a day, 0 Refills, Maintenance, 04/27/19 10:06:27 PM EST Start Date: 04/27/19 Status: Ordered Repeat number: 1 dexlansoprazole 30 mg oral delayed release capsule 1 capsule, By Mouth, Daily, ON AN EMPTY STOMACH., # 90 capsule, 1 Refills, Maintenance, 03/20/24 6:07:00 AM EST, [id number], 158, cm, 03/16/24 10:22:00 EDT, Height, 86, kg, 10/25/23 20:35:00 EDT, Dry Weight Start Date: 03/20/24 Status: Ordered Quantity: 90.0 Unit: capsule Repeat number: 1 escitalopram 5 mg oral tablet 1 tablet = 5 mg, By Mouth, Daily, # 30 tablet, 0 Refills, Maintenance, 12/02/19 5:32:00 PM EDT, Tablet Start Date: 12/02/19 Status: Ordered Quantity: 30.0 Unit: tablet Repeat number: 1 levothyroxine 125 mcg (0.125 mg) oral tablet 1 tablet, By Mouth, Daily, # 90 tablet, 1 Refills, Maintenance, 10/05/23 10:09:00 AM EDT, [facility] #[id number], 158, cm, 09/09/23 12:07:00 EDT, Height, 87.7, kg, 06/14/23 15:47:00 EST, Dry Weight Start Date: 10/05/23 Status: Ordered Quantity: 90.0 Unit: tablet Repeat number: 1 Lomotil 0.025 mg-2.5 mg oral tablet 1, tablet, By Mouth, 4 times a day, PRN, # 360 tablet, Refills 3, Tot. Refills 3, Maintenance, for loose stool, 04/15/23 9:28:00 AM EST, Print Requisition, Tablet Start Date: 04/15/23 Stop Date: 04/09/24 Status: Ordered Quantity: 360.0 Unit: tablet Repeat number: 4 Indication: Diarrhea, unspecified LSO for SI Joint Dysfunction M53.3 LSO for SI Joint Dysfunction M53.3, See Instructions, # 1 each, Refills 0, Tot. Refills 0, Maintenance, for home use, 09/19/20 7:54:00 AM EDT, Supply Start Date: 09/19/20 Status: Ordered Quantity: 1.0 Unit: each Repeat number: 1 Lutein = 25 mg, By Mouth, Daily, 0 Refills, Maintenance, 04/27/19 10:06:17 PM EST Start Date: 04/27/19 Status: Ordered Repeat number: 1 meclizine 25 mg oral tablet 1 tablet = 25 mg, By Mouth, 3 times a day, PRN for dizziness, # 30 tablet, 0 Refills, Maintenance, 09/09/23 1:53:00 PM EDT, Tablet, Partial fill upon patient request if the prescription is for a schedule II opioid drug. Start Date: 09/09/23 Status: Ordered Quantity: 30.0 Unit: tablet Repeat number: 1 nitroglycerin 0.3 mg sublingual tablet 1 tablet = 0.3 mg, Sublingual, Every 5 minutes, PRN for chest pain, If chest pain not relieved in 5minutes after first dose, seek immediate medical attention must be dispensed & stored in original containers not to exceed 3 doses/15 min--if pain persists, seek medical attention, # 600 tablet, 0 Refills, Maintenance, 03/11/22 9:12:00 AM EDT, Tablet, [facility] #[id number], Partial fill upon patient request if the prescription is for a schedule II opioid drug., 158, cm, 03/11/22 8:57:00EDT, Height Start Date: 03/11/22 Status: Ordered Quantity: 600.0 Unit: tablet Repeat number: 1 rosuvastatin 10 mg oral tablet 1 tablet, By Mouth, Daily, # 90 tablet, 1 Refills, Maintenance, 11/30/23 10:15:00 AM EDT, [facility] #[id number], 158, cm, 11/03/23 14:50:00 EDT, Height, 86, kg, 10/25/23 20:35:00 EDT, Dry Weight Start Date: 11/30/23 Status: Ordered Quantity: 90.0 Unit: tablet Repeat number: 1 Problem List Condition Confirmation Course Effective Dates Status Health Status Informant Lumbar facet arthropathy Confirmed Active Benign recurrent vertigo Confirmed Active 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 CTS (carpal tunnel syndrome) s/p release 2023 Confirmed Active Diastolic CHF, chronic Confirmed Active CAD (coronary artery disease) Confirmed Active GERD (gastroesophageal reflux disease) Confirmed Active History of osteoporosis 1 Confirmed Active Hypercholesteremia Confirmed Active Irritable bowel syndrome (IBS) 2 Confirmed Active Anxiety and depression Confirmed Active Combined hyperlipidemia Confirmed Active Normocytic anemia Confirmed Active Obese class I Confirmed Active ELIZABETH (obstructive sleep apnea) 3 Confirmed Active Old [place] (myocardial infarction) Confirmed Active DJD (degenerative joint disease) of knee Confirmed Active PAF (paroxysmal atrial fibrillation) Confirmed Active Pulmonary hypertension Confirmed Active Sacroiliac dysfunction Confirmed Active Senile purpura Confirmed Active Neuroforaminal stenosis of lumbar spine Confirmed Active 1last DEXA 06/2022 improved to osteopenia 2With diarrhea. follows with GI 3on CPAP Results Radiology Reports * Exam Date Time Procedure Performing Provider Status 04/15/24 8:[address] Angio Chest Emma Pittman; Auth (Ve rified) Notes: (CT Angio Chest) Reason For Exam: PE suspected, Intermediate prob, positive D-dimer,;Other: RESULT: CT Angio Chest EXAMINATION: CT Angio Chest INDICATION: Cough. Fatigue. Positive d-dimer. Concern of pulmonary embolism. TECHNIQUE: Spiral CTA of the chest was performed after rapid IV contrast administration without cardiac gating, triggered by an BRISA on the main pulmonary artery. Images are formatted in multiple planes using 2-D multiplanar and 3-D maximum intensity projection. 100 cc of Isovue 300 was administered intravenously. Weight-based protocol using automatic tube modulation was used to optimize exposure parameters. CTDIvol Body: 12.90 mGy, DLP Body: 460 mGy*cm. COMPARISONS: Multiple priors, most recent CT chest 01/29/2021 ANGIOGRAPHIC FINDINGS: No pulmonary embolism to the segmental level. Normal caliber pulmonary arteries. No acute aortic abnormality seen on this study performed without cardiac gating. Mild atherosclerotic calcification. NON-ANGIOGRAPHIC FINDINGS: Sharepoint Administrator View Findings, Lines and Tubes: Left subclavian dual-chamber pacemaker/AICD leads are intact. Trachea and Airways: Patent without evidence of tracheal or endobronchial lesion. Lungs and Pleura: Mild dependent atelectasis. No consolidation. Scattered small calcified granulomas. Minimal subpleural cystic changes at the right lung apex. No effusion or pneumothorax. Mediastinum and christine: No mass or hematoma. No mediastinal or hilar lymphadenopathy. Small type I hiatal hernia. Visualized thyroid gland is atrophic. Heart: Mild cardiomegaly. Left atrial appendage occlusion device. No pericardial effusion. Status post coronary artery stenting. Chest Wall Soft Tissues: Normal. Diaphragm and upper abdomen: No significant abnormality. Bones: No acute abnormality. Moderate degenerative changes throughout the spine. IMPRESSION: CTA 1. No pulmonary embolism. 2. No thoracic aortic aneurysm resection.. CHEST 1. No significant acute pulmonary, pleural, or mediastinal abnormality.. 2. No fracture. No evidence of pulmonary embolism. Mild contrast reflux into the IVC. Findings are nonspecific, but could represent right heart failure. Mild cardiomegaly. Clear lungs. No evidence suggest pneumonia. I have personally reviewed the images and I agree with this report. WSN: [id number] Ordering Physician: Portia Naik Dictated By: Michelle Barker MD Dictated Date/Time: 04/15/24 9:13 pm Reviewed By: Alfred Flores MD Signed By: Alfred Flores MD Signed Date/Time: 04/15/24 9:18 pm Transcribed By: JEREMY Transcribed Date/Time: 04/15/24 8:46 pm * Exam Date Time Procedure Performing Provider Status 04/15/24 7:07 PM Chest 2 Views Frontal and Lat Red Henao (Verified) Notes: (Chest 2 Views Frontal and Lat) Reason For Exam: Shortness of Breath, Fever;Other: RESULT: Chest 2 Views Frontal and Lat Chest 2 Views Frontal and Lat Hx of Present Illness: Coming from home, 4 days of productive cough, runny nose, and general fatigue. Coughed BRB this AM, PCP told her to come in for possible pna .; Reason: Other:; Shortness of Breath, Fever; Clinical Question(s): Pneumonia COMPARISON: 10/29/2023 FINDINGS: LINES AND TUBES: None. LUNGS AND PLEURA: No definite consolidation. Hyperinflated lungs. No pleural effusion. No pneumothorax. HEART, MEDIASTINUM AND CHRISTINE: Unchanged. BONES AND SOFT TISSUES: No acute abnormality. Bilateral glenohumeral arthritis, right greater than left. IMPRESSION: No acute abnormality. WSN: [id number] Ordering Physician: Portia Naik Dictated By: Cameron Hoyt MD Dictated Date/Time: 04/15/24 7:36 pm Reviewed By: Cameron Hoyt MD Signed By: Cameron Hoyt MD Signed Date/Time: 04/15/24 7:36 pm Transcribed By: JEREMY Transcribed Date/Time: 04/15/24 7:31 pm Vital Signs Most recent to oldest [Reference Range]: 1 2 3 Oxygen Saturation [94-100 %] 97 % (04/15/24 10:16 PM) 97 % (04/15/24 7:33 PM) 99 % (04/15/24 5:29 PM) Pulse Rate [55-90 bpm] 68 bpm (04/15/24 10:16 PM) 66 bpm (04/15/24 7:33 PM) 67 bpm (04/15/24 5:29 PM) Blood Pressure [90-138/55-84 mm Hg] 114/82mm Hg (04/15/24 10:16 PM) 135/66mm Hg (04/15/24 7:33 PM) 140/68mm Hg *H* (04/15/24 5:29 PM) Respiratory Rate [16-30 br/min] 23 br/min (04/15/24 10:16 PM) 18 br/min (04/15/24 7:33 PM) 16 br/min (04/15/24 5:29 PM) Temperature [96.8-100.4 DegF] 98.5 DegF (04/15/24 7:33 PM) 97.9 DegF (04/15/24 5:29 PM) Mode of Delivery (Oxygen) Room air (04/15/24 10:16 PM) Room air (04/15/24 7:33 PM) Room air (04/15/24 5:29 PM) Blood pressure sites Arm, left (04/15/24 10:16 PM) Arm, left (04/15/24 7:33 PM) Arm, left (04/15/24 5:29 PM) Temperature Route Oral (04/15/24 7:33 PM) Oral (04/15/24 5:29 PM) Social History Social History Type Response Smoking Status Former smoker entered on: 01/24/14 Sex Sex Representation Female (finding) Note * Portia Naik MD: PERFORM Event Display: Patient Education Leaflets Authored Date: [id number] Viral Upper Respiratory Illness (Adult) ?? [id number] Viral Upper Respiratory Illness (Adult) You have a viral upper respiratory illness (URI), which is another term for the common cold. This viral illness is contagious during the first few days. It's spread through the air by coughing and sneezing. It may also be spread by direct contact (touching the sick person and then touching your owneyes, nose, or mouth). Frequent handwashing will lower risk of spread. Most viral illnesses go awaywithin 7 to 10 days with rest and simple home remedies. Sometimes the illness may last for several weeks. Antibiotics will not kill a virus, and they are generally not prescribed for this condition. Home care ??? If symptoms are severe, rest at home for the first 2 to 3 days or as advised. When you resume activity, don't let yourself get too tired. ??? Don't smoke. If you need help stopping, talk with your healthcare provider. ??? Stay away from cigarette smoke (yours or others???). ??? You may use acetaminophen or ibuprofen to control pain and fever, unless another medicine was prescribed.??Talk with your provider before taking these medicines if you have chronic liver or kidney disease. Also talk with your provider if you've had a stomach ulcer or digestive bleeding, or you take blood-thinning medicines. Never give aspirin to anyone under 18 years of age who is ill with a viral infection or fever. It may cause severe liver or brain damage, or even . ??? Your appetite may be poor, so a light diet is OK. Stay well hydrated by drinking 6 to 8 glasses of fluids per day (water, soft drinks, juices, tea, or soup). Extra fluids will help loosen secretions in the nose and lungs. ??? Jpfr-duq-hmlyquf cold medicines will not shorten the length of time you???re sick. But they may be helpful for cough, sore throat, and nasal and sinus congestion. If you take prescription medicines, ask your healthcare provider or pharmacist which vouz-vjb-bbyznkh medicines are safe to use. Don'tuse decongestants, if you have high blood pressure, without first talking with your healthcare provider. ??? If you are taking other prescribed medicine, contact your healthcare provider before taking any lnou-zcn-tdwhidh medicines. ?? Follow-up care Follow up with your healthcare provider, or as advised. ?? When to seek medical advice Call your healthcare provider right away if any of these occur: ??? Cough with lots of colored sputum (mucus) ??? Severe headache; face, neck, or ear pain ??? Difficulty??swallowing??due to throat pain ??? Fever of 100.4??F (38??C) or higher , or as directed by your healthcare provider ?? Call 911 Call 911 if any of these occur: ??? Chest pain, shortness of breath, wheezing, or difficulty breathing ??? Coughing up blood ??? Very severe pain with swallowing, especially if it goes along with a muffled voice ??? Feeling of doom ??? Feeling dizzy, faint, or confused ??? Lips or skin is blue, purple or ramírez in color ?? Last Reviewed Date: 2021 ?? 6860-0284 [employer]. All rights reserved. This information is not intended as a substitute for professional medical care. Always follow your healthcare professional's instructions. ?? Patient Care team information Care Team Personnel Name: Kerry Henderson RN Position: [facility] RN Member Role: Primary Care Nurse Name: Fatou Rahman RN Position: [facility] RN Member Role: Primary Care Nurse Name: Kenny Arteaga RN Position: [facility] RN Member Role: Primary Care Nurse Name: Abbey Taylor RN Position: [facility] AMB Nurse Member Role: Primary Care Nurse Name: Dana Moreno RN Position: [facility] SN RN Member Role: Primary Care Nurse Name: Elba Jeter RN Position: [facility] RN Member Role: Primary Care Nurse Name: Ashlie Moreno Position: [facility] Outreach Member Role: Lifetime Consulting Physician Name: Humera Mcgowan MD Position: [facility] Physician - Primary Care Member Role: PCP Address: [facility] [place] [address]- Telecom: Name: Cecilia Stephens RN Position: [facility] SN RN Member Role: Primary Care Nurse Name: Nahid Oliveira RN Position: [facility] RN Member Role: Primary Care Nurse Name: Aria Hernández Position: [facility] RN Member Role: Primary Care Nurse Name: Tiffanie Domingo RN Position: [facility] RN Member Role: Primary Care Nurse Name: Zoey Garcia Position: [facility] [place] Member Role: Primary Care Nurse Name: Alyssa Bridges RN Position: [facility] RN Member Role: Primary Care Nurse Name: Lion Goel RN Position: [facility] RN Member Role: Primary Care Nurse Care Team Related Persons Name: RADHA MILES Name: ANGEL MILES Name: DAVID FITZPATRICK Name: LENIN MCINTYRE Insurance Providers Guarantor name: JUVENCIO [facility] Health Plan Information #: 1 Payer: MEDICARE PART B OUTPT Member Number: [id number] Policy Number: NA Group Number: Health Plan Information #: 2 Payer: [facility] Member Number: [id number] Policy Number: NA Group Number: [id number]
--- OUTSIDE RECORDS SUMMARY | 2024-05-01 15:18 | XMS_ITS ---
Author Organization [facility] Address [address] [place] [address] Care Team Providers Care Clinical Auditor Name Role Phone Gracie Damon Unavailable [phone] Beau Winters Unavailable [phone] Allergies Allergen (clinical drug ingredient) Drug/Non Drug Allergy documented on EMR Reaction Allergy Type Onset Date Status Biaxin GI upset Drug Allergy Active erythromycin Erythromycin GI upset Drug Allergy A ctive Niacin Unknown Drug Allergy Active azithromycin Zithromax Z-Rojelio GI upset Drug Allergy Active aspirin Aspirin Emprin/Hepatiti s Has to be a baby aspirin Drug Allergy Active codeine Codeine Fainting Drug Allergy Active Substance with sulfonamide structure and antibacterial mechanism of action (substance) Sulfa Antibiotics Unknown Drug Allergy Active REASON FOR VISIT Painful nail(s) aggrevated by shoes and causing difficulty standing/walking. Medications Medication SIG (Take, Route, Frequency, Duration) Notes Start Date End Date Status buPROPion HCl ER (XL) 100 mg Once a day Active Citracal Plus 400 units Not-Taking Tylenol 500 mg Not-T aking Keflex 500 MG 1 capsule Orally every 12 hrs for 5 days 06/14/2015 Not-Taking Irbesartan 300 MG Orally once a day Not-Taking Citalopram & Diet Manage Prod Not-Taking Plavix 75 MG 1 tablet Orally Once a day for 30 day(s) as needed Not-Taking Cephalexin 500 mg prn No t-Taking Tylenol Not-Taking busPIRone HCl Not-Ta Metoprolol Tartrate 50 MG Orally Not-Taking Amiodarone HCl 200 MG 1 tablet Orally On ce a day for 30 day(s) Not-Taking Imodium A-D 2 mg Not -Taking Eliquis 5 MG as directed Orally Not-Taking amLODIPine Besylate Not-Taking Ipratropium Milford HFA Not-Taking Vitamin B12 500 mcg Not-Taking dilTIAZem HCl 240mg Not-Ta lynda Diphenoxylate-Atropine 2.5-0.025 MG/5ML 5 ml as needed Orally Four times a day Not-Taking Doxycycline Hyclate 100 MG 1 capsule Orally Once a day for 10 day(s) 06/05/2022 Not-Taking Aspirin 81 mg Active Furosemide Not-Takin g Nitroglycerin .4 mg 1 capsule Orally Three times a day for 30 day(s) prn Active Carvedilol 12.5 MG half a tablet Orally Twice a day Active Meclizine HCl prn Active Crestor 10 MG 1 tablet Orally daily for 30 days Active Dexilant 30 MG Orally Once a day Active Calcium + D 400 IU A ctive Levothyroxine Sodium 112 mcg Active Escitalopram Oxalate 20 mg Active Social History Tobacco Use: Social History Observation Description Date Details (start date - stop date) Former Smoker NA - NA Tobacco Use/Smoking Question Answer Notes Are you a: former smoker When did you stop smoking? 1979 Additional Findings: Tobacco Non-User Current no n-smoker Alcohol Screen Question Answer Notes Did you have a drink containing alcohol in the p ast year? No Points 0 Interpretation Negative Tobacco use other than smoking: Question Answer Notes Are you an other tobacco user? No Vital Signs Height 5 ft 3 in in 03/14/2024 Weight 185 lbs 03/14/2024 BMI 32.77 kg/m2 03/14/2024 Encounters Encounter Location Date Provider Diagnosis [facility] [address] [place] [id number] 03/14/2024 BeauMedina Tinea unguium B35.1 ; Ingrowing nail L60.0 ; Pain in right toe(s) M79.674 ; Pain in left toe(s) M79.675 ; Other hammer toe(s) (acquired), left foot M20.42 ; Other hammer toe(s) (acquired), right foot M20.41 and Unspecified atherosclerosis of [place] arteries of extremities, bilateral legs I70.203 Assessments Encounter Date Diagnosis (ICD Code) Assessment Notes Treatment Notes Treatment Clinical Notes Section Notes 03/14/2024 Tinea unguium (ICD-10 - B35.1) 03/14/2024 Ingrowing nail (ICD-10 - L60.0) 03/14/2024 Pain in right toe(s) (ICD-10 - M79.674) 03/14/2024 Pain in left toe(s) (ICD-10 - M79.675) 03/14/2024 Other hammer toe(s) (acquired), left foot (ICD-10 - M20.42) 03/14/2024 Other hammer toe(s) (acquired), right foot (ICD-10 - M20.41) 03/14/2024 Unspecified atherosclerosis of [place] arteries of extremities, bilateral legs (ICD-10 - I70.203) Plan Of Treatment Next Appt Details Follow Up: 3 Months, Reason: Provider Name:Gracie Johansen alexis, 06/06/2024 10:30:00 AM, [address] [facility], [place] [address], [place], [address], Procedure Notes * Category Sub-Category Detail Notes Debride Nail 6-10 Nail debridement Nail debridem ent performed extensively to reduce/remove overall nail length and girth, subungual debris, and necrotic tissue, by manual and electrical means with use of a nail nipper and/or dremel, to more viable healthy nail plate or bed tissue 6-10. Silver nitrate used for any petechial bleeding as necessary. Patient chooses, no pharmaceutical tx (99902) Keratoma Treatment Parring or Cutting o f Benign Hyperkeratotic Lesion(s) 51534 ( >4 Lesions) - The Benign hyperkeratotic lesions, as described above were pared, and/or cut utilizing a sterile #15 blade, tissue nippers, and/or dremel Progress Notes * Doreen SUTTON ADOB:[birth year] (84 yo F)Acc No.[id number]:03/14/2024 Progress Note Patient:?LuciusDoreen harmon Provider:?Beau Winters DPM :1940???Age:84 Y???Sex:Female D ate:03/14/2024 Address:[address] [place], [place] [phone] Pcp:Humera Mcgowan Subjective: * Chief Complaints: * ???Painful nail(s) aggrevate d by shoes and causing difficulty standing/walking. * HPI: ???Painful Nails:?Pt States Last PCP Visit:?Date:?11/15/2023 ?Misc:?spinal sx [facility] 10/07.? * ROS:?General/Constitutional:?Nausea?denies.?Vomiting?denies.?Hunger Thirst?denies.?Loss appetite?denies.?Chills?denies.?Fatigue?denies.?Fever?denies.?Night Sweats?denies.?Unexplained weight loss?denies.?Ophthalmologic:?Blurred vision?denies.?Red eye?denies.?HEENTM:?Dentures?denies.?Dizziness?denies.?Glasses/contacts?admits.?Retinopathy?de nies.?Blurred/double vision?denies.?TMJ?denies.?Discharge/drainage?denies.?Implants?denies.?Hard of hearing denies.?Difficulty chewing/swallowing/speaking?denies.?Nose bleeds?denies.?Sore mouth?denies.?Swollen glands?denies.?Respiratory:?On Oxygen?denies.?Pneumonia/pleurisy?denies.?Bronchitis?denies.?Emphysema?denies.?C oughing?denies.?Cough blood?denies.?Shortness of breath?admits.?Wheezing?denies.?Cardiovascular:?Pacemaker?denies.?MVP?denies.?WPW?denies.?CHF?denies.?Heart attack?denies.?Septal defect?denies.?Rapid beat?admits.?Chest pain ?denies.?Atrial Fib.?admits.?Murmur/Palpitations?denies.?Gastrointestinal:?Hemorrhoids?denies.?Stomach/Abdominal pain?denies.?Dark blood stool?denies.?Irritable bowel ?denies.?Constipation?denies.?Diarrhea?denies.?Vomiting?denies.?Hematology:?Swelling?admits.?Bruising?denies.?Bleeding problem?denies.?Genitourinary:?Blood urine?denies.?Frequent/Painfu/urination/bladder control?denies.?Kidney stones?denies.?Infection (UTI)?denies.?Nephropathy?denies.?Musculoskeletal:?Hammertoes?denies.?Bunions?denies.?Scoliosis/kyphosis?denies.?Muscle cramps / walking?denies.?Generalized aches and pains?denies.?Weakness?denies.?Integ.:?Duval?denies.?Scars?denies.?Corns/calluses?denies.?Ingrown nails?admits.?Painful nails?denies.?Rashes?denies.?Neurologic:?Difficulty sleeping?denies.?Bipolar?denies.?Brain disorder?denies.?Balance trouble?admits.?Confusion?denies.?Fainting/blackouts?denies.?Headache?denies.?Tr emors?denies.? * Medical History:? * Surgical History:?cataract s urgery bilateral eyes 2006cholecystectomy 1992left knee arthroscopy 05/26/2007cardiac pacemeker 12/26/19back surgery 08/05/22back surgery 10/11/23eart ablation 03/03/2024 * Hospitalization/Major Diagno stic Procedure:?[facility] 10/19/09 heart attack 01/12[facility] - elevated BP, low heart rate- 7 days - acute Afib onset 04/2019[facility] - heart beat down to 30 06/2019[facility] Pacemaker 12/26/19[facility]- a fib 02/21/21. [facility], [facility] 06/09/21[facility]- fainted and fell, 5 day stay 10/2023 * Family History:?Mother: dece ased, foot problems, diagnosed with Family history of arthritis, Unspecified essential hypertension.?Father: , diagnosed with Diabetic - NIDDM, Unspecified cerebral artery occlusion with cerebral infarction, Other malignant neoplasm of unspecified site.? No children. * Social History:?Tobacco Use:?Tobacco Use/Smoking?Are you a:?former smoker ?When did you stop smoking??1979 ?Additional Findings: Tobacco Non-User?Current non-smoker ?Tobacco use other than smoking?Are you an other tobacco user??No ???Drugs/Alcohol:?Drugs?Have you used drugs other than those for medical reasons in the past 12 months??No ?Alcohol Screen?Did you have a drink containing alcohol in the past year??No ?Points?0 ?Interpretation?Negative ???Miscellaneous:?Caffeine: yes, 2 cups per day. ?Children: none. ?Exercise: yes, gym 3 x per wk. ?Marital status: single. ?Occupation: retired. * Medications:?TakingbuPROPion HCl ER (XL) 100 mg Once a dayCalcium + D 400 IU Crestor 10 MG Tablet 1 tablet Orally dailyDexilant 30 MG Capsule Delayed Release Orally Once a dayEscitalopram Oxalate 20 mg Levothyroxine Sodium 112 mcg Meclizine HCl , Notes: prnNitroglycerin .4 mg Capsule Extended Release 1 capsule Orally Three times a day, Notes: prnCarvedilol 12.5 MG Tablet half a tablet Orally Twice a dayAspirin 81 mg Taking buPROPion HCl ER (XL) 100 mg Once a dayTaking Calcium + D 400 IU Taking Crestor 10 MG Tablet 1 tablet Orally dailyTaking Dexilant 30 MG Capsule Delayed Release Orally Once a dayTaking Escitalopram Oxalate 20 mg Taking Levothyroxine Sodium 112 mcg Taking Meclizine HCl , Notes: prnTaking Nitroglycerin .4 mg Capsule Extended Release 1 capsule Orally Three times a day, Notes: prnTaking Carvedilol 12.5 MG Tablet half a tablet Orally Twice a dayTaking Aspirin 81 mg Not-Taking/PRNFurosemide dilTIAZem HCl , Notes: 240mgDiphenoxylate-Atropine 2.5- 0.025 MG/5ML Liquid 5 ml as needed Orally Four times a dayIpratropium Milford HFA Vitamin B12 500 mcg Doxycycline Hyclate 100 MG Capsule 1 capsule Orally Once a dayEliquis 5 MG Tablet as directed Orally amLODIPine Besylate Amiodarone HCl 200 MG Tablet 1 tablet Orally Once a dayImodium A-D 2 mg Metoprolol Tartrate 50 MG Tablet Orally Tylenol Plavix 75 MG Tablet 1 tablet Orally Once a day, Notes: as neededCephalexin 500 mg prnCitalopram & Diet Manage Prod busPIRone HCl Irbesartan 300 MG Tablet Orally once a dayTylenol 500 mg Keflex 500 MG Capsule 1 capsule Orally every 12 hrsCitracal Plus 400 units Medication List reviewed and reconciled with the patientNot- Taking/PRN Furosemide Not-Taking/PRN dilTIAZem HCl , Notes: 240mgNot-Taking/PRN Diphenoxylate-Atropine 2.5-0.025 MG/5ML Liquid 5 ml as needed Orally Four times a dayNot-Taking/PRN Ipratropium [place] HFA Not-Taking/PRN Vitamin B12 500 mcg Not-Taking/PRN Doxycycline Hyclate 100 MG Capsule 1 capsule Orally Once a dayNot-Taking/PRN Eliquis 5 MG Tablet as directed Orally Not-Taking/PRN amLODIPine Besylate Not-Taking/PRN Amiodarone HCl 200 MG Tablet 1 tablet Orally Once a dayNot-Taking/PRN Imodium A-D 2 mg Not-Taking/PRN Metoprolol Tartrate 50 MG Tablet Orally Not-Taking/PRN Tylenol Not-Taking/PRN Plavix 75 MG Tablet 1 tablet Orally Once a day, Notes: as neededNot-Taking/PRN Cephalexin 500 mg prnNot-Taking/PRN Citalopram & Diet Manage Prod Not-Taking/PRN busPIRone HCl Not-Taking/PRN Irbesartan 300 MG Tablet Orally once a dayNot-Taking/PRN Tylenol 500 mg Not-Taking/PRN Keflex 500 MG Capsule 1 capsule Orally every 12 hrsNot-Taking/PRN Citracal Plus 400 units Medication List reviewed and reconciled with the patient * Allergies:?Aspirin: Emprin/H epatitis Has to be a baby aspirinBiaxin: GI upsetCodeine: FaintingErythromycin: GI upsetNiacinSulfa AntibioticsZithromax Z-Rojelio: GI upsetyes[Allergies Verified] Objective: * Vitals:?Ht: 5 ft 3 in, Wt: 1 85, BMI: 32.77, Shoe size: 9, Wt-k.91 kg. * Examination: ???Dermatologic: ?SKIN FINDINGS:? Skin exam reveals Keratotic lesion(s) located at, Plantar, T1, T2, T3, T6, T7, T8, Heel(s), B/L .?Ingrown Nail: ?INSPECTION:? Reveals nail incurvation, pain on palpation, groove hypertrophy, groove ischemia, Lateral nail border, TA.?Nails: ?NAILS are:?elongated,overgrown,dystrophic,greater than 3mm thick,discolored and friable with crumbly malodorous subungual debris, with pain on palpation, 1-5 B/L.?Vascular: ?DP PULSES(B):? 1/4, B/L.?PT PULSES(B):? 0/4, B/L.?TROPHIC CONDITION-TEXTURE/ELASTICITY/TURGOR/HAIR GROWTH(B):? decreased, B/L.?TEMPERTURE GRADIENT(C):? decreased, cool to cool, proximal to distal, B/L.?PIGMENTATION:? mottled, B/L.?EDEMA(C):? 1/4, B/L, Feet, Ankle(s), Leg(s).?Neurological: ?SENSORY:?Neurological exam reveals intact sensorium, pain sensation normal, vibration sensation intact, pinprick sensation is normal in the lower extremities, Pt denies, anesthesia, burning, paresthesia, tingling, B/L.?Orthopedic: ?FOOT MORPHOLOGY:? Pes Planus structure, B/L.?DIGITAL DEFORMITIES:? Digital contracture, PIPJ, 2-5 B/L, incompl- reducable to push-up test, no over, nor underlapping.? Assessment: * Assessment: 1.?Tinea unguium - B35.1 (Pr imary)?2.?Ingrowing nail - L60.0?3.?Pain in right toe(s) - M79.674?4.?Pain in left toe(s) - M79.675?5.?Other hammer toe(s) (acquired), left foot - M20.42?6.?Other hammer toe(s) (acquired), right foot - M20.41?7. Unspecified atherosclerosis of [place] arteries of extremities, bilateral legs - I70.203? Plan: * Treatment: * Procedures:?Debride Nail 6-10:?Nail debridement?Nail debridement performed extensively to reduce/remove overall nail length and girth, subungual debris, and necrotic tissue, by manual and electrical means with use of a nail nipper and/or dremel, to more viable healthy nail plate or bed tissue 6-10. Silver nitrate used for any petechial bleeding as necessary. Patient chooses, no pharmaceutical tx (79820).?Keratoma Treatment:?Parring or Cutting of Benign Hyperkeratotic Lesion(s)?61900 ( >4 Lesions) - The Benign hyperkeratotic lesions, as described above were pared, and/or cut utilizing a sterile #15 blade, tissue nippers, and/or dremel.? * Procedure Codes:?89130 DEBRI DE NAIL, 6 OR MORE, Modifiers: XS 57724 TRIM SKIN LESIONS, OVER 4, Modifiers: Q8 * Follow Up:?3 Months * Images: * Sign off status: Completed true * Provider:?Beau Winters DPM Date:? 024 Generated for Lauritai bud/Marcella/eTransmitting on:?05/01/2024 03:18 PM EST History and Physical Notes * HPI (History of Present Illness) Category Sub-Category Detail Notes Category Not es Painful Nails Misc: spinal sx C 10/07 Pt States Last PCP Visit: Date:: 11/15/2023 Examination Category Sub-Category Detail Notes Category Not es Ingrown Nail INSPECTION: Reveals nail inc urvation, pain on palpation, groove hypertrophy, groove ischemia, Lateral nail border, TA Neurological SENSORY: Neurological exa m reveals intact sensorium, pain sensation normal, vibration sensation intact, pinprick sensation is normal in the lower extremities, Pt denies, anesthesia, burning, paresthesia, tingling, B/L Dermatologic SKIN FINDINGS: Skin exam reveal s Keratotic lesion(s) located at, Plantar, T1, T2, T3, T6, T7, T8, Heel(s), B/L Orthopedic FOOT MORPHOLOGY: Pes Planus structure, B/ L DIGITAL DEFORMITIES: Digital contracture , PIPJ, 2-5 B/L, incompl-reducable to push-up test, no over, nor underlapping Vascular DP PULSES(B): 1/4, B/L PT PULSES(B): 0/4, B/L TEMPERTURE GRADIENT(C): decreased, cool to cool, proximal to distal, B/L TROPHIC CONDITION-TEXTURE/ELASTICITY/TURGOR/HAIR GROWTH(B): decreased, B/L EDEMA(C): 1/4, B/L, Feet, Ankl e(s), Leg(s) PIGMENTATION: mottled, B/L Nails NAILS are: elongated,overgr own,dystrophic,greater than 3mm thick,discolored and friable with crumbly malodorous subungual debris, with pain on palpation, 1-5 B/L
--- OUTSIDE RECORDS SUMMARY | 2024-05-01 15:18 | XMS_ITS ---
Author Organization [facility] Address [address] [place] [address] Care Team Providers Care Production Machine Operator Name Role Phone Gracie Damon Unavailable [phone] Beau Winters [phone] Encounters Encounter Location Date Provider Diagnosis [address] [phone] 11/23/2023 Beau Winters Plan Of Treatment Next Appt Details Provider Name:Gracie Johansen alexis, 06/06/2024 10:30:00 AM, [facility] [address], [address], Progress Notes * Doreen SUTTON ADOB:[birth year] (84 yo F)Acc No.[id number]:11/23/2023 Progress Note Patient:?FRANCISCO JAVIER Doreen Bourne Provider:?Beau Winters DPM :1940???Age:83 Y???Sex:Female D ate:11/23/2023 Address:[address] [place], [place] [id number] Pcp:Humera Mcgowan Subjective: * Chief Complaints: * ??? * Medical History:? Objective: * Vitals:? Assessment: Plan: * Treatment: * Images: * The named appointment provid er may or may not be the originator of this progress note, and it is not deemed complete until electronically signed by the appointment provider. Sign off status: Pending * Provider:?Beau Winters DPM Date:? 024 Generated for Papo farrell/Marcella/Angieitting on:?05/01/2024 03:18 PM EST
--- OUTSIDE RECORDS SUMMARY | 2024-05-01 15:18 | XMS_ITS ---
Author Organization [facility] Address [address] [place] [address] Care Team Providers Care Visual Manager Name Role Phone Gracie Damon Unavailable [phone] Beau Winters Unavailable [phone] Allergies Allergen (clinical drug ingredient) Drug/Non Drug [...] nail(s) aggrevated by shoes and causing difficulty standing/walking., pt having sx 10/12/23 at [facility] [place] her spine with Dr. Rome Medications Medication SIG (Take, Route, Frequency, Duration) Notes Start Date End Date Status Keflex 500 MG 1 capsule Orally every 12 hrs for 5 days 06/14/2015 Not-Taking Tylenol 500 mg Not-T aking Irbesartan 300 MG Orally once a day Not-Taking busPIRone HCl Not-Ta lynda Citracal Plus 400 units Not-Taking Cephalexin 500 mg prn No t-Taking Plavix 75 MG 1 tablet Orally Once a day for 30 day(s) as needed Not-Taking Citalopram & Diet Manage Prod Not-Taking Tylenol Not-Taking Metoprolol Tartrate 50 MG Orally Not-Taking amLODIPine Besylate Not-Taking Eliquis 5 MG as directed Orally Not-Taking Doxycycline Hyclate 100 MG 1 capsule Orally Once a day for 10 day(s) 06/05/2022 Not-Taking Imodium A-D 2 mg Not -Taking Amiodarone HCl 200 MG 1 tablet Orally On ce a day for 30 day(s) Not-Taking Ipratropium [place] HFA Not-Taking Diphenoxylate-Atropine 2.5-0.025 MG/5ML 5 ml as needed Orally Four times a day Not-Taking Aspirin 81 mg Active Vitamin B12 500 mcg Not-Taking Carvedilol 12.5 MG half a tablet Orally Twice a day Active Escitalopram Oxalate 20 mg Active Dexilant 30 MG Orally Once a day Active Nitroglycerin .4 mg 1 capsule Orally Three times a day for 30 day(s) prn Active Meclizine HCl prn Active Levothyroxine Sodium 112 mcg Active Calcium + D 400 IU A ctive buPROPion HCl ER (XL) 100 mg Once a day Active Furosemide Not-Takin g dilTIAZem HCl 240mg Not-Ta lynda Crestor 10 MG 1 tablet Orally daily for 30 days Active Social History Tobacco Use: Social History [...] Signs Height 5 ft 3 in in 12/17/2023 Weight 183 lbs 12/17/2023 BMI 32.41 kg/m2 12/17/2023 Encounters Encounter Location Date Provider Diagnosis [facility] [place] [address] [place] [id number] 12/17/2023 Beau Winters Tinea unguium B35.1 ; Ingrowing nail L60.0 ; Pain in right toe(s) M79.674 ; Pain in left toe(s) M79.675 ; Other hammer toe(s) (acquired), left foot M20.42 ; Other hammer toe(s) (acquired), right foot M20.41 and 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, bilateral legs I70.203 Assessments Encounter Date Diagnosis (ICD Code) Assessment Notes Treatment Notes Treatment Clinical Notes Section Notes 12/17/2023 Tinea unguium (ICD-10 - B35.1) 12/17/2023 Ingrowing nail (ICD-10 - L60.0) 12/17/2023 Pain in right toe(s) (ICD-10 - M79.674) 12/17/2023 Pain in left toe(s) (ICD-10 - M79.675) 12/17/2023 Other hammer toe(s) (acquired), left foot (ICD-10 - M20.42) 12/17/2023 Other hammer toe(s) (acquired), right foot (ICD-10 - M20.41) 12/17/2023 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 Patient chooses, no pharmaceutical tx (74632) Keratoma Treatment Parring or Cutting o f Benign Hyperkeratotic Lesion(s) 29358 ( >4 Lesions) - The Benign hyperkeratotic lesions, as described above were pared, and/or cut utilizing a sterile #15 blade, tissue nippers, and/or dremel Progress Notes * Doreen SUTTON ADOB:[birth year] (83 yo F)Acc No.[id number]:12/17/2023 Progress Note Patient:?Doreen Sutton Provider:?Beau Winters DPM :1940???Age:83 Y???Sex:Female D ate:12/17/2023 Address:[address] [place], [place] [phone] Pcp:Humera Mcgowan Subjective: * Chief Complaints: * ???Painful nail(s) aggrevate d by shoes and causing difficulty standing/walking.pt having sx 10/12/23 at [facility] on her spine with Dr. Rome * HPI: ???Painful Nails:?Pt States Last PCP Visit:?Date:?11/15/2023 ?Misc:?spinal sx [facility] 10/07.? * ROS:?General/Constitutional:?Nausea?denies, denies.?Vomiting?denies, denies.?Hunger Thirst?denies, denies.?Loss appetite?denies, denies.?Chills?denies, denies.?Fatigue?denies, denies.?Fever?denies, denies.?Night Sweats denies, denies.?Unexplained weight loss?denies, denies.?Ophthalmologic:?Blurred vision?denies, denies.?Red eye?denies, denies.?HEENTM:?Dentures?denies, denies.?Dizziness?denies, denies.?Glasses/contacts?admits, admits.?Retinopathy?denies, denies.?Blurred/double vision?denies, denies.?TMJ?denies, denies.?Discharge/drainage?denies, denies.?Implants?denies, denies.?Hard of hearing ?denies, denies.?Difficulty chewing/swallowing/speaking?denies, denies.?Nose bleeds?denies, denies.?Sore mouth?denies, denies.?Swollen glands?denies, denies.?Respiratory:?On Oxygen?denies, denies.?Pneumonia/pleurisy?denies, denies.?Bronchitis?denies, denies.?Emphysema?denies, denies.?Coughing?denies, denies.?Cough blood?denies, denies.?Shortness of breath?admits, admits.?Wheezing?denies, denies.?Cardiovascular:?Pacemaker?denies, denies.?MVP?denies, denies.?WPW?denies, denies.?CHF?denies, denies.?Heart attack?denies, denies.?Septal defect?denies, denies.?Rapid beat?admits, admits.?Chest pain ?denies, denies.?Atrial Fib.?admits, admits.?Murmur/Palpitations?denies, denies.?Gastrointestinal:?Hemorrhoids?denies, denies.?Stomach/Abdominal pain?denies, denies.?Dark blood stool?denies, denies.?Irritable bowel ?denies, denies.?Constipation?denies, denies.?Diarrhea?denies, denies.?Vomiting?denies, denies.?Hematology:?Swelling?admits, admits.?Bruising?denies, denies.?Bleeding problem?denies, denies.?Genitourinary:?Blood urine?denies, denies.?Frequent/Painfu/urination/bladder control?denies, denies.?Kidney stones?denies, denies.?Infection (UTI)?denies, denies.?Nephropathy?denies, denies.?Musculoskeletal:?Hammertoes?denies, denies.?Bunions?denies, denies.?Scoliosis/kyphosis?denies, denies.?Muscle cramps / walking?denies, denies.?Generalized aches and pains?denies, denies.?Weakness?denies, denies.?Integ.:?Duval?denies, denies.?Scars?denies, denies.?Corns/calluses?denies, denies.?Ingrown nails?admits, admits.?Painful nails?denies, denies.?Rashes?denies, denies.?Neurologic:?Difficulty sleeping?denies, denies.?Bipolar?denies, denies.?Brain disorder?denies, denies.?Balance trouble?admits, admits.?Confusion?denies, denies.?Fainting/blackouts?denies, denies.?Headache?denies, denies.?Tremors?denies, denies.? * Medical History:? * Surgical History:?cataract s urgery bilateral eyes 2006cholecystectomy 1992left knee arthroscopy 05/26/2007cardiac pacemeker 12/26/19back surgery 08/05/22back surgery 10/11/23 * Hospitalization/Major Diagno stic Procedure:?[facility] 10/19/09 heart attack 01/12, - elevated BP, low heart rate- 7 days - acute Afib [place] [place] heart beat down to 30 06/2019[facility] Pacemaker 12/26/19BM- a fib 02/21/21. Luis, Heart 06/09/21BM- fainted and fell, 5 day stay 10/2023 [...] as needed Orally Four times a dayIpratropium [place] HFA Vitamin B12 500 mcg Doxycycline Hyclate [...] needed Orally Four times a dayNot-Taking/PRN Ipratropium [place] HFA Not-Taking/PRN Vitamin B12 500 mcg Not-Taking/PRN [...] Vitals:?Ht: 5 ft 3 in, Wt: 1 83, BMI: 32.41, Shoe size: 9, Wt-k.01 kg. * Examination: ???Dermatologic: ?SKIN FINDINGS:? Skin exam reveals Keratotic lesion(s) located at, Plantar, T1, T2, T3, T6, T7, T8, Heel(s), B/L .?Ingrown Nail: ?INSPECTION:? Reveals nail incurvation, pain on palpation, groove hypertrophy, groove ischemia, Lateral nail border, TA.?Nails: ?NAILS are:?elongated,overgrown,dystrophic,greater than 3mm thick,discolored and friable with crumbly malodorous subungual debris, with pain on palpation, 1-5 B/L.?Vascular: ?DP PULSES:? 1/4, B/L.?PT PULSES:? 04, B/L.?SKIN TEMPERTURE GRADIENT OF THE LOWER EXTERMITIES:? decreased, cool to cool, proximal to distal, B/L.?HAIR GROWTH/TEXTURE/ELASTICITY/TURGOR:? decreased, B/L.?PIGMENTATION:? mottled, B/L.?EDEMA:? 1, B/L, Feet, Ankle(s), Leg(s).?Neurological: ?SENSORY:?Neurological exam reveals [...] right foot - M20.41?7. 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, bilateral legs - I70.203? [...] as necessary. Patient chooses, no pharmaceutical tx ([id number]).?Keratoma Treatment:?Parring or Cutting of Benign Hyperkeratotic Lesion(s)?89126 ( >4 Lesions) - The Benign hyperkeratotic lesions, as described above were pared, and/or cut utilizing a sterile #15 blade, tissue nippers, and/or dremel.? * Procedure Codes:?85734 DEBRI DE NAIL, 6 OR MORE, Modifiers: XS 84306 TRIM SKIN LESIONS, OVER 4, Modifiers: Q8 * Follow Up:?3 Months * Images: * Sign off status: Completed true * Provider:?Beau Winters DPM Date:? 024 Generated for Papo farrell/Marcella/eTaliciasmitting on:?05/01/2024 03:18 PM EST History and Physical [...]
--- OUTSIDE RECORDS SUMMARY | 2024-05-01 15:19 | XMS_ITS | Clinical Summary ---
Author Organization Unknown Care Team Providers Care Political Consultant Name Role Phone MATTHIEU LÓPEZ, ALEXIS Unavailable Unavailable TEODORA RN, QUAN Unavailable Unavailable CLOONAN CONSULTING MARINE ENGINEER, ZULEYMA Unavailable Unavailable ARON PT, CHRISTIE Unavailable Unavailable MARY TOOL AND PRODUCTION PLANNER, MARK Unavailable Unavailable N[place]OL[place]AN OT, BHANU Unavailable Unavailable Payers Payer Name Policy Type Policy Number Effective Date Expira tion Date MEDICARE.NGS.PDGM [id number] Problems Condition Name Condition Details Condition Category Status Onset Date Resolution Date Last Treatment Date Treating Clinician Comments ENCOUNTER FOR OTHER ORTHOPEDIC AFTERCARE Active 10-11 00:00: 00 SPINAL STENOSIS, 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 Active 05-17 00:00: 00 RADICULOPATH Y, LUMBAR REGION Active 05-17 00:00: 00 OTHER CHRONIC PAIN Active 05-17 00:00: 00 HYPERTENSIVE CHRONIC KIDNEY DISEASE W STG 1-4/UNSP CHR KDNY Active 05-17 00:00: 00 CHRONIC KIDNEY DISEASE, STAGE 3 UNSPECIFIED Active 05-17 00:00: 00 ATHSCL HEART DISEASE OF [place] CORONARY ARTERY W/O ANG PCTRS Active 05-17 00:00: 00 PAROXYSMAL ATRIAL FIBRILLATION Active 05-17 00:00: 00 SICK SINUS SYNDROME Active 05-17 00:00: 00 PULMONARY HYPERTENSION , UNSPECIFIED Active 05-17 00:00: 00 IRRITABLE BOWEL SYNDROME WITH DIARRHEA Active 05-17 00:00: 00 SLEEP APNEA, UNSPECIFIED Active 05-17 00:00: 00 DEPRESSION, UNSPECIFIED Active 05-17 00:00: 00 OLD MYOCARDIAL INFARCTION Active 05-17 00:00: 00 GASTRO-ESOPH AGEAL REFLUX DISEASE WITHOUT ESOPHAGITIS Active 05-17 00:00: 00 HYPOTHYROIDI SM, UNSPECIFIED Active 05-17 00:00: 00 HYPERLIPIDEM IA, UNSPECIFIED Active 05-17 00:00: 00 OBESITY, UNSPECIFIED Active 05-17 00:00: 00 ARTHRODESIS STATUS Active 10-11 00:00: 00 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 PREPARATION (CURRENT) USE OF ASPIRIN Active 10-24 00:00: 00 BODY MASS INDEX [BMI] 34.0-34.9, ADULT Active 10-24 00:00: 00 PERSONAL HISTORY OF NICOTINE DEPENDENCE Active 05-17 00:00: 00 PRESENCE OF LEFT ARTIFICIAL KNEE JOINT Active 05-17 00:00: 00 PRESENCE OF CARDIAC PACEMAKER Active 05-17 00:00: 00 PRESENCE OF CORONARY ANGIOPLASTY IMPLANT AND GRAFT Active 05-17 00:00: 00 PRESENCE OF OTHER CARDIAC IMPLANTS AND GRAFTS Active 05-17 00:00: 00 ACQUIRED ABSENCE OF OTHER SPECIFIED PARTS OF DIGESTIVE TRACT Active 05-17 00:00: 00 Allergies, Adverse Reactions, Alerts Allergy Name Allergy Type Status Severity Reaction(s) Onset Date Inactive Date Treating Clinician Comments SULFA (SULFONAM IDES) Propensity to adverse reactions Active 2023-10 08:55:3 4 CODEINE Propensity to adverse reactions Active 2023-10 08:55:3 8 NSAIDS Propensity to adverse reactions Active 2023-10 08:55:4 6 Medications Ordered Medication Name Filled Medication Name Start Date Stop Date Current Medication? Ordering Clinician Indication Dosage Frequency Signature (SIG) Comments Components oxycodone 5 mg tablet 10-12 00:00: 00 Yes [id number] SEVERE PAIN, 7-10/10 1 tablet EVERY 6 HOURS 1 tablet EVERY 6 HOURS (route: oral) Med Classific ation: Analgesic , Anti-infl ammatory or Antipyret ic levothyroxi ne 125 mcg tablet 10-04 00:00: 00 Yes [id number] HYPOTHYROID ISM 1 tablet DAILY 1 tablet DAILY (route: oral) Med Classific ation: Endocrine acetaminoph en 325 mg tablet 10-24 00:00: 00 Yes [id number] MILD PAIN 1-3/10 2 tablet EVERY 4 HOURS 2 tablet EVERY 4 HOURS (route: oral) Med Classific ation: Analgesic , Anti-infl ammatory or Antipyret ic Adult Aspirin Regimen 81 mg tablet,ronny yed release 10-24 00:00: 00 Yes [id number] BLOOD THINNER 1 tablet DAILY 1 tablet DAILY (route: oral) Med Classific ation: Hematolog ical Agents bupropion HCl SR 100 mg tablet,12 hr sustained-r elease 10-24 00:00: 00 Yes [id number] DEPRESSION 1 tablet DAILY 1 tablet DAILY (route: oral) Med Classific ation: Central Nervous System Agents calcium citrate 500 mg-vitamin D3 12.5 mcg (500 unit) chewable tablet 10-24 00:00: 00 Yes [id number] SUPPLEMENT 1 tablet BEDTIME 1 tablet BEDTIME (route: oral) Med Classific ation: Electroly te Balance-N utritiona l Products carvedilol 25 mg tablet 10-24 00:00: 00 Yes [id number] BLOOD PRESSURE 1 tablet EVERY 12 HOURS 1 tablet EVERY 12 HOURS (route: oral) Med Classific ation: Cardiovas cular Therapy Agents cyclobenzap rine 10 mg tablet 10-24 00:00: 00 Yes [id number] MUSCLE SPASM 1 tablet EVERY 8 HOURS 1 tablet EVERY 8 HOURS (route: oral) Med Classific ation: Locomotor System escitalopra m 5 mg tablet 10-24 00:00: 00 Yes [id number] DEPRESSION 1 tablet DAILY 1 tablet DAILY (route: oral) Med Classific ation: Central Nervous System Agents furosemide 20 mg tablet 10-24 00:00: 00 Yes [id number] EDEMA 1 tablet DAILY 1 tablet DAILY (route: oral) Med Classific ation: Cardiovas cular Therapy Agents Lidocaine Pain Relief 4 % topical patch 10-24 00:00: 00 Yes [id number] PAIN 1-2 adhesiv e patch, medicat ed DAILY 1-2 adhesive patch, medicated DAILY (route: topical) Med Classific ation: Dermatolo gical loperamide 2 mg tablet -17 00:00: 00 Yes [id number] DIARRHEA 1-2 tablet NEEDED 1-2 tablet NEEDED (route: oral) Med Classific ation: Gastroint estinal Therapy Agents nitroglycer in 0.3 mg sublingual tablet 10-06 00:00: 00 Yes [id number] CHEST PAIN 1-3 tablet NEEDED 1-3 tablet NEEDED (route: sublingual ) Med Classific ation: Cardiovas cular Therapy Agents PreserVisio n AREDS 2 Plus Multivit 200 mcg-15 mcg-5 mg-1 mg capsule 10-06 00:00: 00 Yes [id number] SUPPLEMENT 1 capsule DAILY 1 capsule DAILY (route: oral) Med Classific ation: Electroly te Balance-N utritiona l Products rosuvastati n 10 mg tablet 09-29 00:00: 00 Yes [id number] CHOLESTEROL 1 tablet BEDTIME 1 tablet BEDTIME (route: oral) Med Classific ation: Cardiovas cular Therapy Agents Vital Signs Vital Name Observation Time Observation Value Commen ts Temperature 2023-10-25 10:53:00.000 96.8 [degF] BMI (%) 2023-10-25 10:53:00.000 34 kg/m2 Height 2023-10-25 10:53:00.000 62 [in_us] Pulse 2023-10-25 10:53:00.000 60 /min O2 Saturation (%) 2023-10-25 10:53:00.000 98 % Respirations 2023-10-25 10:53:00.000 18 /min Weight (lbs) 2023-10-25 10:53:00.000 189 [lb_av] Systolic Blood Pressure 2023-10-25 10:53:00.000 118 mm [Hg] Diastolic Blood Pressure 2023-10-25 10:53:00.000 62 mm [Hg] Plan of Treatment Planned Activity Planned Date Details Comments Future Scheduled Test RN TO OBSE RVE, ASSESS, EVALUATE, AND DEVELOP AN INDIVIDUALIZED PLAN OF CARE. AGENCY MAY ACCEPT ORDERS FROM CONSULTING PHYSICIANS. REGISTERED NURSE TO OBSERVE AND ASSESS/LICENSED PRACTICAL NURSE TO OBSERVE FOR RISK FOR FALLS AND INSTRUCT IN FALL PREVENTION, HOME SAFETY, MEDICATION MANAGEMENT, INFECTION PREVENTION, AND NUTRITION MANAGEMENT. REGISTERED NURSE/LICENSED PRACTICAL NURSE MAY PERFORM O2 SATURATION LEVEL ON ADMISSION AND FOR RN TO ASSESS/CONSULTING MARINE ENGINEER TO OBSERVE PATIENT, WITH NOTIFICATION TO THE PHYSICIAN IF SATURATION IS 90% IN THE ABSENCE OF MORE SPECIFIC PARAMETERS FROM THE PHYSICIAN. AGENCY MAY PERFORM A RESUMPTION OF CARE VISIT FOLLOWING ANY HOSPITAL ADMISSION. REGISTERED NURSE/LICENSED PRACTICAL NURSE TO MONITOR CO-MORBID CONDITIONS LISTED ON THE PLAN OF CARE AND ANY NEW CONDITIONS THAT PRESENT THEMSELVES DURING THIS EPISODE TO IDENTIFY CHANGES AND INTERVENE TO MINIMIZE COMPLICATIONS. [code = RN TO OBSERVE, ASSESS, EVALUATE, AND DEVELOP AN INDIVIDUALIZED PLAN OF CARE. AGENCY MAY ACCEPT ORDERS FROM CONSULTING PHYSICIANS. REGISTERED NURSE TO OBSERVE AND ASSESS/LICENSED PRACTICAL NURSE TO OBSERVE FOR RISK FOR FALLS AND INSTRUCT IN FALL PREVENTION, HOME SAFETY, MEDICATION MANAGEMENT, INFECTION PREVENTION, AND NUTRITION MANAGEMENT. REGISTERED NURSE/LICENSED PRACTICAL NURSE MAY PERFORM O2 SATURATION LEVEL ON ADMISSION AND FOR RN TO ASSESS/CONSULTING MARINE ENGINEER TO OBSERVE PATIENT, WITH NOTIFICATION TO THE PHYSICIAN IF SATURATION IS 90% IN THE ABSENCE OF MORE SPECIFIC PARAMETERS FROM THE PHYSICIAN. AGENCY MAY PERFORM A RESUMPTION OF CARE VISIT FOLLOWING ANY HOSPITAL ADMISSION. REGISTERED NURSE/LICENSED PRACTICAL NURSE TO MONITOR CO-MORBID CONDITIONS LISTED ON THE PLAN OF CARE AND ANY NEW CONDITIONS THAT PRESENT THEMSELVES DURING THIS EPISODE TO IDENTIFY CHANGES AND INTERVENE TO MINIMIZE COMPLICATIONS.] Future Scheduled Test MEDICATION MANAGEMENT; REGISTERED NURSE/LICENSED PRACTICAL NURSE TO REVIEW MEDICATIONS FOR INTERACTIONS, EFFECTIVENESS OF DRUG THERAPY, AND SIGNS/SYMPTOMS OF ADVERSE REACTIONS. MAY INSTRUCT AND REINFORCE MEDICATION TEACHING RELATED TO THE USE OF MEDICATIONS, DOSAGE, FREQUENCY, PURPOSE, SIDE EFFECTS, AND TO REPORT COMPLICATIONS. [code = MEDICATION MANAGEMENT; REGISTERED NURSE/LICENSED PRACTICAL NURSE TO REVIEW MEDICATIONS FOR INTERACTIONS, EFFECTIVENESS OF DRUG THERAPY, AND SIGNS/SYMPTOMS OF ADVERSE REACTIONS. MAY INSTRUCT AND REINFORCE MEDICATION TEACHING RELATED TO THE USE OF MEDICATIONS, DOSAGE, FREQUENCY, PURPOSE, SIDE EFFECTS, AND TO REPORT COMPLICATIONS.] Future Scheduled Test RISK FOR H OSPITALIZATION; REGISTERED NURSE TO ASSESS /TEACH, LICENSED PRACTICAL NURSE TO OBSERVE/TEACH PATIENT/CAREGIVER ON RISK FOR HOSPITALIZATION/EMERGENCY ROOM VISITS, TEACH SIGNS AND SYMPTOMS THAT PUT PATIENT AT RISK, WHEN TO NOTIFY NURSE/PHYSICIAN OF COMPLICATIONS/DECLINE, AND WHEN TO CALL 911. [code = RISK FOR HOSPITALIZATION; REGISTERED NURSE TO ASSESS /TEACH, LICENSED PRACTICAL NURSE TO OBSERVE/TEACH PATIENT/CAREGIVER ON RISK FOR HOSPITALIZATION/EMERGENCY ROOM VISITS, TEACH SIGNS AND SYMPTOMS THAT PUT PATIENT AT RISK, WHEN TO NOTIFY NURSE/PHYSICIAN OF COMPLICATIONS/DECLINE, AND WHEN TO CALL 911.] Future Scheduled Test PAIN MANAG EMENT; REGISTERED NURSE TO ASSESS AND TEACH/LICENSED PRACTICAL NURSE TO OBSERVE AND TEACH AND PROVIDE EDUCATION ON PAIN MANAGEMENT TECHNIQUES. [code = PAIN MANAGEMENT; REGISTERED NURSE TO ASSESS AND TEACH/LICENSED PRACTICAL NURSE TO OBSERVE AND TEACH AND PROVIDE EDUCATION ON PAIN MANAGEMENT TECHNIQUES.] Future Scheduled Test FALL REDUC TION MANAGEMENT; REGISTERED NURSE TO ASSESS AND TEACH/LICENSED PRACTICAL NURSE TO OBSERVE AND TEACH ON EDUCATION AND INTERVENTION TO IDENTIFY FALL RISK FACTORS SUCH MEDICATIONS THAT MAY CAUSE DIZZINESS, CHRONIC DISEASES, PSYCHOLOGICAL FACTORS, AND EMPOWER/EDUCATE PATIENT/CAREGIVER TO MINIMIZE FALL RISK. [code = FALL REDUCTION MANAGEMENT; REGISTERED NURSE TO ASSESS AND TEACH/LICENSED PRACTICAL NURSE TO OBSERVE AND TEACH ON EDUCATION AND INTERVENTION TO IDENTIFY FALL RISK FACTORS SUCH MEDICATIONS THAT MAY CAUSE DIZZINESS, CHRONIC DISEASES, PSYCHOLOGICAL FACTORS, AND EMPOWER/EDUCATE PATIENT/CAREGIVER TO MINIMIZE FALL RISK.] Future Scheduled Test PHYSICAL T HERAPIST TO EVALUATE FOR STRENGTH AND ENDURANCE TRAINING [code = PHYSICAL THERAPIST TO EVALUATE FOR STRENGTH AND ENDURANCE TRAINING ] Future Scheduled Test OCCUPATION AL THERAPIST TO EVALUATE FOR BATHING, DRESSING AND GROOMING STRATEGIES [code = OCCUPATIONAL THERAPIST TO EVALUATE FOR BATHING, DRESSING AND GROOMING STRATEGIES ] Goal 2023-10-26 Patient Goal - LESS PAIN, GE T STRONGER Goal Provider Goal - A PLAN OF CARE WILL BE ESTABLISHED THAT MEETS THE PATIENTS NEEDS. PATIENT WILL DEMONSTRATE OXYGEN SATURATION WITHIN NORMAL LIMITS OR PATIENTS OPTIMAL LEVEL ESTABLISHED BY THE PHYSICIAN THROUGHOUT CARE. CHANGES TO CO-MORBID CONDITIONS AND ANY NEW CONDITIONS WILL BE IDENTIFIED AND REPORTED TO THE PHYSICIAN. Goal Provider Goal - PATIENT/CAREGIVER TO VERBALIZE, AND CONSISTENTLY DEMONSTRATE EFFECTIVE, SAFE MANAGEMENT OF MEDICATION INCLUDING KNOWLEDGE OF EFFECTIVENESS, POTENTIAL SIDE EFFECTS AND DRUG REACTIONS AND WHEN TO CONTACT THE APPROPRIATE CARE PROVIDER. PATIENT/CAREGIVER WILL BE ABLE TO VERBALIZE UNDERSTANDING OF MEDICATION REGIMEN AND ACCURATELY TAKE MEDICATIONS PRESCRIBED WITHOUT ADVERSE EFFECTS BY 12/23/23. Goal Provider Goal - PATIENT/CAREGIVER WILL VERBALIZE UNDERSTANDING OF SIGNS AND SYMPTOMS THAT PUT THE PATIENT AT RISK FOR HOSPITALIZATION /EMERGENCY ROOM VISITS, WHEN TO NOTIFY NURSE/PHYSICIAN OF COMPLICATIONS/DECLINE AND WHEN TO CALL 911. Goal Provider Goal - PATIENT / CAREGIVER WILL VERBALIZE / DEMONSTRATE UNDERSTANDING OF PAIN CONTROL MEASURES BY 12/23/23. Goal Provider Goal - PATIENT/CAREGIVER ABLE TO IDENTIFY FALL RISK FACTORS AND IMPLEMENT STRATEGIES TO MINIMIZE FALL RISK. PATIENT/CAREGIVER WILL VERBALIZE/DEMONSTRATE AN ABILITY TO ADHERE TO FALL REDUCTION SELF MANAGEMENT AND LIFE-STYLE CHANGES AT DISCHARGE. PERSONAL GOAL(S) STATED BY PATIENT/CAREGIVER WILL BE MET BY 12/23/23. Goal Provider Goal - Reason for Visit MODERATE ASSIST WITH TRANSFER/AMBULATION/ADLS Encounters Start Date/Time End Date/Time Encounter Type Admission Type Attending [facility] Care Facility Care Department Encounter ID Discharge Date Discharge Status Discharge Condition Discharge Reason Percent Goals Met 2023-10-25 00:00:00 2023-10-26 00:00:00 Outpatient NEW ADMISSION [facility] [id number] 2023-10-26 00:00:00 DISCHARGED /TRANSFERR ED TO A [facility] FOR INPATIENT CARE MODERATE ASSIST WITH TRANSFER/A MBULATION/ ADLS ONLY - TRANSFER TO HOSPITAL 100.00
--- OUTSIDE RECORDS SUMMARY | 2024-05-01 15:19 | XMS_ITS | Patient Health Record ---
[facility] Organization [facility] Address [address] [place] [address] Care Team Providers Care Beamer Helper Name Role Phone DamonGracie ramirez Unavailable [phone] SinghBeau Unavailable [phone] Allergies Allergen (clinical drug ingredient) Drug/Non Drug [...] (substance) Sulfa Antibiotics Unknown Drug Allergy Active Reason For Referral No Information Medications Medication SIG (Take, Route, Frequency, Duration) Notes Start Date End Date Status Escitalopram Oxalate 20 mg Active Ipratropium [place] HFA Not-Taking Vitamin B12 500 mcg Not-Taking dilTIAZem HCl 240mg Not-Tab howell Diphenoxylate-Atropine 2.5-0.025 MG/5ML 5 ml as needed Orally Four times a day Not-Taking Aspirin 81 mg Active Furosemide Not-Takin g Nitroglycerin .4 mg 1 capsule Orally Three times a day for 30 day(s) prn Active Citracal Plus 400 units Not-Taking Carvedilol 12.5 MG half a tablet Orally Twice a day Active Levothyroxine Sodium 112 mcg Active Tylenol 500 mg Not-T aking Meclizine HCl prn Active Keflex 500 MG 1 capsule Orally every 12 hrs for 5 days 06/14/2015 Not-Taking busPIRone HCl Not-Tab howell Irbesartan 300 MG Orally once a day Not-Taking Crestor 10 MG 1 tablet Orally daily for 30 days Active Citalopram & Diet Manage Prod Not-Taking Dexilant 30 MG Orally Once a day Active buPROPion HCl ER (XL) 100 mg Once a day Active Plavix 75 MG 1 tablet Orally Once a day for 30 day(s) as needed Not-Taking Calcium + D 400 IU A ctive Cephalexin 500 mg prn No t-Taking Metoprolol Tartrate 50 MG Orally Not-Taking Tylenol Not-Taking Amiodarone HCl 200 MG 1 tablet Orally On ce a day for 30 day(s) Not-Taking Imodium A-D 2 mg Not -Taking Eliquis 5 MG as directed Orally Not-Taking amLODIPine Besylate Not-Taking Doxycycline Hyclate 100 MG 1 capsule Orally Once a day for 10 day(s) 06/05/2022 Not-Taking Immunizations Vaccine Route Administration Date Status Comme nts COVID-19 Pfizer BioNTech Vaccine Unknown 07/14/2020 Adm inistered Social History Tobacco Use: Social History Observation [...] Are you an other tobacco user? 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, bilateral legs (I70.203) Active confirmed Problem Acquired hammer toe of right foot (88479992161 73891) Other hammer toe(s) (acquired), right foot (M20.41) Active confirmed Problem Acquired hammer toe of left foot (78749955097 44628) Other hammer toe(s) (acquired), left foot (M20.42) Active confirmed Vital Signs Height 5 ft 3 in in 03/14/2024 Weight 185 lbs 03/14/2024 BMI 32.77 kg/m2 03/14/2024 Encounters Encounter Location Date Provider Diagnosis [facility] [address] 06/18/2023 Beau Singh Tinea unguium B35.1 ; Ingrowing nail L60.0 ; Pain in right toe(s) M79.674 ; Pain in left toe(s) M79.675 ; Other hammer toe(s) (acquired), left foot M20.42 ; Other hammer toe(s) (acquired), right foot M20.41 and 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, bilateral legs I70.[address] [address] 09/14/2023 Beau Winters Tinea unguium B35.1 ; Ingrowing nail L60.0 ; Pain in right toe(s) M79.674 ; Pain in left toe(s) M79.675 ; Other hammer toe(s) (acquired), left foot M20.42 ; Other hammer toe(s) (acquired), right foot M20.41 and 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, bilateral legs I70.[address] [address] 12/17/2023 Beau Singh Tinea unguium B35.1 ; Ingrowing nail L60.0 ; Pain in right toe(s) M79.674 ; Pain in left toe(s) M79.675 ; Other hammer toe(s) (acquired), left foot M20.42 ; Other hammer toe(s) (acquired), right foot M20.41 and 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, bilateral legs I70.[address] [address] 03/14/2024 Beau Winters Tinea unguium B35.1 ; Ingrowing nail L60.0 ; Pain in right toe(s) M79.674 ; Pain in left toe(s) M79.675 ; Other hammer toe(s) (acquired), left foot M20.42 ; Other hammer toe(s) (acquired), right foot M20.41 and 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, bilateral legs I70.[address] [place] [address] 11/16/2023 Beau Winters Assessments Encounter Date Diagnosis (ICD Code) Assessment Notes Treatment Notes Treatment Clinical Notes Section Notes 06/18/2023 Tinea unguium (ICD-10 - B35.1) 09/14/2023 Tinea unguium (ICD-10 - B35.1) 12/17/2023 Tinea unguium (ICD-10 - B35.1) 03/14/2024 Tinea unguium (ICD-10 - B35.1) 03/14/2024 Ingrowing nail (ICD-10 - L60.0) 12/17/2023 Ingrowing nail (ICD-10 - L60.0) 09/14/2023 Ingrowing nail (ICD-10 - L60.0) 06/18/2023 Ingrowing nail (ICD-10 - L60.0) 06/18/2023 Pain in right toe(s) (ICD-10 - M79.674) 09/14/2023 Pain in right toe(s) (ICD-10 - M79.674) 12/17/2023 Pain in right toe(s) (ICD-10 - M79.674) 03/14/2024 Pain in right toe(s) (ICD-10 - M79.674) 03/14/2024 Pain in left toe(s) (ICD-10 - M79.675) 12/17/2023 Pain in left toe(s) (ICD-10 - M79.675) 09/14/2023 Pain in left toe(s) (ICD-10 - M79.675) 06/18/2023 Pain in left toe(s) (ICD-10 - M79.675) 06/18/2023 Other hammer toe(s) (acquired), left foot (ICD-10 - M20.42) 09/14/2023 Other hammer toe(s) (acquired), left foot (ICD-10 - M20.42) 12/17/2023 Other hammer toe(s) (acquired), left foot (ICD-10 - M20.42) 03/14/2024 Other hammer toe(s) (acquired), left foot (ICD-10 - M20.42) 03/14/2024 Other hammer toe(s) (acquired), right foot (ICD-10 - M20.41) 12/17/2023 Other hammer toe(s) (acquired), right foot (ICD-10 - M20.41) 09/14/2023 Other hammer toe(s) (acquired), right foot (ICD-10 - M20.41) 06/18/2023 Other hammer toe(s) (acquired), right foot (ICD-10 - M20.41) 06/18/2023 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, bilateral legs (ICD-10 - I70.203) 09/14/2023 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, bilateral legs (ICD-10 - I70.203) 12/17/2023 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, bilateral legs (ICD-10 - I70.203) 03/14/2024 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, bilateral legs (ICD-10 - I70.203) Plan Of Treatment Pending Test Test Name Order Date [id number] NAIL, 6 OR MORE 02/24/2011 83180-MOAYZQY NAIL, 6 OR MORE 05/08/2011 23618-CYPIFTH NAIL, 6 OR MORE 07/24/2011 18380-YSPOMUA NAIL, 6 OR MORE 10/20/2011 05538-QSLLGKP NAIL, 6 OR MORE 01/22/2012 34858-NKYXEKO NAIL, 6 OR MORE 04/22/2012 54572-NXVDXDT NAIL, 6 OR MORE 07/26/2012 57909-NRXVRYN NAIL, 6 OR MORE 01/10/2013 52591-FPOZVRT NAIL, 6 OR MORE 04/04/2013 18509-ALZGTMI NAIL, 6 OR MORE 06/16/2013 10018-ZSGPHVB NAIL, 6 OR MORE 08/25/2013 61229-BRVPPYU NAIL, 6 OR MORE 11/21/2013 53925-HEDIZGI NAIL, 6 OR MORE 10/25/2012 89988-YDXFKLB NAIL, 6 OR MORE 02/20/2014 04765-LKHWRDH NAIL, 6 OR MORE 05/22/2014 59736-QRVQYQS NAIL, 6 OR MORE 08/14/2014 24991-YFNECTP NAIL, 6 OR MORE 10/30/2014 70522-KADLLDY NAIL, 6 OR MORE 01/04/2015 79702-UGPUGID NAIL, 6 OR MORE 06/14/2015 27437-HXEFPBU NAIL, 6 OR MORE 09/13/2015 18565-FSNKNJV NAIL, 6 OR MORE 01/17/2016 75768-THVAUIN NAIL, 6 OR MORE 04/21/2016 12918-YGOBCMU NAIL, 6 OR MORE 07/14/2016 43762-DLXNJMZ NAIL, 6 OR MORE 10/13/2016 38344-GTEWKCA NAIL, 6 OR MORE 03/15/2015 85416-XQVCKGS NAIL, 6 OR MORE 12/22/2016 75424-PRCZVDL NAIL, 6 OR MORE 03/26/2017 41404-XQZDWFO NAIL, 6 OR MORE 06/25/2017 60864-IJEMZAK NAIL, 6 OR MORE 10/08/2017 94150-OKGXTXB NAIL, 6 OR MORE 01/07/2018 92817-DZLKFQP NAIL, 6 OR MORE 03/11/2018 09565-Ynljgynb Plate 03/15/2015 66976-Jjipimza Plate 06/25/2017 26713-Zvlihqlc Plate 10/20/2016 11757-Ctwflvny Plate 06/14/2015 33269-Cwfhrgie Plate 01/04/2015 47418-Lbfjanlo Plate 10/30/2014 18796-Ybaohors Plate 08/14/2014 06682-Zjpuuisw Plate 05/22/2014 43090-Wuxobfkc Plate 02/20/2014 50700-Jcsaqqyo Plate 10/25/2012 26007-Amhwpnok Plate 01/10/2013 19086-Pamfokat Plate 11/21/2013 92967-Kkwlpesr Plate 07/26/2012 53675-Nlfkaijs Plate 04/22/2012 18441-Hclnvdes Plate 01/22/2012 20390-Jyyukahh Plate 02/24/2011 80604-Tfsmcemi Plate 10/20/2011 27273-Xixplvle Plate 07/24/2011 38407-Lxjnabbs Plate 05/08/2011 72199-Ggrbixbl Plate Each Additional 77025- Debride <25 sq cm 06/28/2015 95071- Debride <25 sq cm 03/15/2015 45294- Debride <25 sq cm 07/16/2017 23740- Debride <25 sq cm 05/08/2011 65681- Debride <25 sq cm 07/24/2011 70406- Debride <25 sq cm 02/24/2011 33234-IPBM SKIN LESIONS, OVER 4 07/25/19 20 78439-FJVK SKIN LESIONS, OVER 4 10/24/19 20 28050-SUMN SKIN LESIONS, OVER 4 02/13/20 20 63503-LLMT SKIN LESIONS, OVER 4 05/21/19 21 91714-CYGU SKIN LESIONS, OVER 4 08/21/19 21 93898-YIZG SKIN LESIONS, OVER 4 12/21/19 21 18837-MRFN SKIN LESIONS, OVER 4 03/21/20 21 75791-KSPQ SKIN LESIONS, OVER 4 08/02/19 22 59292- Nail Unit Biopsy 01/07/2018 Next Appt Details Provider Name:Gracie Johansen alexis, 06/06/2024 10:30:00 AM, [address] [facility], [address], [place], [address], Insurance Providers Payer Name Payer Address Payer Phone Subscriber Number Group Number Insured Name Patient Relationship to Insured Coverage Start Date Coverage End Date Medicare National Govt [employer] [address] [facility] [address] [id number] Doreen Sutton Self - patient is the insured [facility] ([facility]) [address] [place] [address] [id number] Doreen Sutton Self - patient is the insured Medical (General) History Medical History History ICD Code Arthritis Atrial fibrillation back, hip, knee pain chicken pox Cholesterol depression heart attack hepatitis C hypertension measles mumps osteoporosis Pacemaker psoriasis/eczema reflux thyroid disorder Vertigo Pulmonary hypertension Surgical History Surgery Date(Month/Year) cataract surgery bilateral eyes 2006 cholecystectomy 1992 left knee arthroscopy 05/26/2007 cardiac pacemeker 12/26/19 back surgery 08/05/22 back surgery 10/11/23 heart ablation 03/03/2024 Hospitalization History Reason Date(Month/Year) [facility]- fainted and fell, 5 day stay 10/2023 [place], Heart 06/09/21 [facility]- a fib 02/21/21 [facility] Pacemaker 12/26/19 [facility] - heart beat down to 30 06/2019 [facility] - acute Afib onset 04/2019 [facility] - elevated BP, low heart rate- 7 day s 03/2012 [facility] heart attack 01/12, vertigo [facility] 10/19/09
== END 2024-05-01 15:17 | disposition home or self-care (01) ==
LOC: HO.HOP 15:16
PROVIDERS: PCP Internal Medicine; Visit Provider Psychiatry & Neurology Psychiatry
DX: F33.41 Major depressive disorder, recurrent, in partial remission (principal); M54.9 Dorsalgia, unspecified; M51.16 Intervertebral disc disorders with radiculopathy, lumbar region
CPT/HCPCS: 99214

== ENCOUNTER → 2024-05-01 15:16 | Outpatient (BNVA) | payer MEDICARE, OTHER, SELFPAY | PROVIDERS: PCP Internal Medicine; Visit Provider Psychiatry & Neurology Psychiatry ==

== ENCOUNTER 2024-08-07 16:33 | Outpatient (AMB) | payer MEDICARE, OTHER, SELFPAY ==
--- NOTE | 2024-08-07 13:54 | A.OFFPSYCH_ITS ---
Intake Intake Visit Reasons: depression Allergies codeine Allergy (Verified 12/27/23 13:46) Unconscious niacin Allergy (Verified 12/27/23 13:46) Redness of Skin Sulfa (Sulfonamide Antibiotics) Allergy (Verified 12/27/23 13:46) Itching NSAIDS (Non-Steroidal Anti-Inflamma Adverse Reaction (Verified 12/27/23 13:46) Unknown HPI- Psychiatric Chief Complaint: depression HPI Narrative: Pt seen in f/u had inj pain management for bilat sciatic n pain l sciatica is worse . Mood ok has some periods of feeling down related to chronic pain but otherwise feels supported by her community. Patient can concentrate generally future oriented not overly depressed no self-harming thoughts continues to be active in the [employer] has a couple that is very supportive of her Past Psychiatric History: Past history of recurrent depression for many years. Has been generally stable for the past number of years use to see Dr. Newman for medication management and Dr. Oscar Llamas for psychotherapy Mental Status Exam Mental Status Exam Patient Appearance: Well Grooomed Patient Orientation: Person, Place, Time and Situation Level of Consciousness: Awake and Appropriate Patient Behavior: Appropriate Mood Description: Depressed (mild) Affect Description: Appropriate Patient Cognition Impaired: No Ability to Follow Directions: Good Speech Pattern: Clear Memory Description: Intact Hallucinations: None Delusions: Not Present Thought Process: Intact and Goal Oriented Thought Content: positive for Goal Oriented, negative for Suicidal Ideation or negative for Homicidal Ideation Judgement: Good Judgement and Insight: Patient mildly depressed and anxious about recent medical events but appears to be dealing with them ongoing frustrated by the medical system Difficulty getting appointments and follow-up Telehealth Telehealth Location of provider rendering services: practice address Location of patient: address on file Patient Identification confirmed using: Name, : Yes Telehealth method: video Patient verbally consented to treatment: Yes Patient verbally consented to billing insurance company: Yes Minutes spent on Phone/Video with Pt.: 21 Assessment and Plan Assessment & Plan (1) Major depressive disorder, recurrent episode, in partial remission: Status: Acute Code(s): F33.41 - Major depressive disorder, recurrent, in partial remission Plan pt remains mentally stable feels cared for by support system she is dealing with chronic pain and sciatica which can be overwhelming her ambulation is limited. She is being helped in the community has been able to stay in her house continues stable on bupropion and escitalopram. Patient cognitively appears quite intact can get demoralized at times with pain syndrome she is returning to [facility] pain management Given patient's multiple medical concerns and chronic pain she is managing in the community depression generally in check Medications: Refilled bupropion HCl SR 100 mg PO DAILY 90 days 90 tabs 1RF escitalopram oxalate 5 mg PO DAILY 90 tabs 1RF Counseling and coordination of Care Details-Self Mgmt counseling: Issues related to chronic pain and ways to prevent demineralization Medication management counseling: Effectiveness Diagnosis and Prognosis Counseling: Adequacy of current interventions Details: I spent [25] minutes reviewing the record, seeing the patient and documenting in the medical record. Counseling provided to the patient/caregiver as outlined below. Addressed patient/caregiver concerns regarding current medication regime including effective adherence. Addressed patient/caregiver concerns regarding diagnosis and prognosis including accuracy of diagnosis, prognosis over time, impact of diagnosis. Addressed patient/caregiver concerns regarding impact of recent stressors. [facility] Medical History History of cardioversion Diarrhea SOB (shortness of breath) IBS (irritable bowel syndrome) Arthritis Obesity Depression GERD (gastroesophageal reflux disease) Thyroid disease Hyperlipidemia HTN (hypertension) Pulmonary hypertension Sleep apnea Opacity of lung on imaging study Hx of cardiac pacemaker Sick sinus syndrome Bradycardia Atrial tachycardia Presence of Watchman left atrial appendage closure device Myocardial infarction CAD (coronary artery disease) Atrial fibrillation and flutter Major depressive disorder, recurrent episode, in partial remission Surgical History H/O colonoscopy History of hemorrhoidectomy Hx of total knee replacement Hx of cataract extraction Hx of cholecystectomy Hx of carpal tunnel repair History of back surgery S/P placement of cardiac pacemaker H/O cardiac radiofrequency ablation History of coronary artery stent placement Social History Are you a primary childcare center director to a significant other at home: No Do you presently have visiting nurse or other home services: No Patient Tobacco Use Status: Former Tobacco user service: No Social History: Patient lives alone she is retired dealing with multiple medical issues has sister supports from the [employer] /neighbor Substance History: none Trauma History: none Coding Level of Care Code Tele Est Pt Level 3 (86838) Diagnoses Major depressive disorder, recurrent episode, in partial remission F33.41
== END 2024-08-07 16:34 | disposition home or self-care (01) ==
LOC: HO.HOP 16:33
PROVIDERS: PCP Internal Medicine; Visit Provider Psychiatry & Neurology Psychiatry
DX: F33.41 Major depressive disorder, recurrent, in partial remission (principal)
CPT/HCPCS: 99213

== ENCOUNTER 2025-02-16 15:16 | Outpatient (AMB) | payer MEDICARE, OTHER, SELFPAY ==
--- OUTSIDE RECORDS SUMMARY | 2024-08-25 06:30 | XMS_ITS ---
[facility] Address [address] [place] [address] Care Team Providers Care Court Abstractor Name Role Phone Humera Mcgowan Primary Care Provider UnavailSrinivas Ayala Unavailable [phone] Gracie Damon [phone] Encounters Encounter Location Date Provider Diagnosis [facility] [address] 08/25/2024 Gracie Damon Plan Of Treatment Next Appt Details Provider Name:Srinivas Montez , 05/21/2025 02:00:00 PM, [address] [place] [address], [phone], Progress Notes * Doreen SUTTON ADOB:[birth year] (85 yo F)Acc No.[id number]:08/25/2024 Progress Note Patient: Doreen BOBBY Provider: Aisha Damon DPM :1940 A ge:84 Y S ex:Female Date:08/25/2024 Address:[address] [place], [place] [id number] Pcp:Humera Mcgowan Subjective: * Chief Complaints: * * Medical History: Objective: * Vitals: Assessment: Plan: * Treatment: * Images: * The named appointment provid er may or may not be the originator of this progress note, and it is not deemed complete until electronically signed by the appointment provider. Sign off status: Pending * Provider: Aisha Damon, MARYANNE Date: 0 08/25/2024 Generated for Papo farrell/Marcella/Rian on: 1 03:18 PM EDT
--- OUTSIDE RECORDS SUMMARY | 2025-02-13 14:30 | XMS_ITS | Encounter Summary ---
Author Organization [facility] Address [address] [place] [address] Care Team Providers Care Soccer Coach Name Role Phone Humera Mcgowan MD Primary Care Provider + [phone] Reason for Referral * Imaging (Routine) - Authorized Specialty Diagnoses / Procedures Referred By Contac t Referred To Contact Cardiology Diagnoses Atrial fibrillation, unspecified type (CMS/HCC V24, CMS/HCC V28) Nonrheumatic tricuspid valve regurgitation Nonrheumatic aortic valve stenosis Procedures Transthoracic echocardiogram (TTE) complete with PRN contrast, bubble, strain, and 3D order panel PA TTE W 2D IMAGE COMPLETE W DOPPLER ECHO & COLOR FLOW DOPPLER ECHO PA IMTIAZ 2D COMPLETE W/CONTRAST OR W & WO CONTRAST WITH DOPPLER Angel Fishman MD Phone: tel: fax: [facility] Referral ID Status Reason Start Date Expiration Date V isits Requested Visits Authorized [id number] Authorized 02/13/2025 02/13/2026 1 1 Reason for Visit * Reason Comments Follow-up Encounter Details Date Type Department Care Team (Latest Contact Info) Description 02/13/2025 2:30 PM EDT Office Visit [facility] Cardiology [facility] [address] [facility] [address] [place] [address] Angel Fishman MD [address] [place] [address],[address] [address] Atrial fibrillation, unspecified type (CMS/HCC V24, CMS/HCC V28) (Primary Dx); Coronary artery disease involving qagan tayagungin coronary artery of qagan tayagungin heart without angina pectoris; Hypertension, unspecified type; Orthostatic hypotension; Hyperlipidemia, unspecified hyperlipidemia type; Nonrheumatic tricuspid valve regurgitation; Nonrheumatic aortic valve stenosis Social History Tobacco Use Types Packs/Day Years Used Date Smoking Tobacco: Former Cigarettes Q uit: 05/17/1981 Smokeless Tobacco: Never Alcohol Use Standard Drinks/Week Comments Not Currently 0 (1 standard drink = 0.6 oz pur e alcohol) Comments Unknown Sex and Gender Information Value Date Recorded Sex Assigned at Not on file Legal Sex Female 5:52 AM EST Gender Identity Not on file Sexual Orientation Not on file documented as of this encounter Last Filed Vital Signs Vital Sign Reading Time Taken Comments Blood Pressure 144/82 02/13/2025 2:22 PM EDT Pulse 60 02/13/2025 2:22 PM EDT Temperature - - Respiratory Rate - - Oxygen Saturation 98% 02/13/2025 2:22 PM EDT Inhaled Oxygen Concentration - - Weight 87 kg (191 lb 11.2 oz) 02/13/2025 2:22 PM EDT Height 157.5 cm (5' 2 ) 02/13/2025 2:22 PM EDT Body Mass Index 35.06 02/13/2025 2:22 PM EDT documented in this encounter Progress Notes * Angel Fishman MD - 02/13/2025 2:30 PM EDTAssociated Problem(s): A-fib (CMS/HCC V24, CMS/HCC V28) Patient has undergone cardioversion and ablation therapy. She has an atrial paced rhythm with effective capture as well as AV sequential pacing. She is maintained on low-dose aspirin alone. She has had a Watchman procedure with an effective seal over the left atrial appendage. Orders: ECG 12 lead Transthoracic echocardiogram (TTE) complete with PRN contrast, bubble, strain, and 3D order panel; Future * Angel Fishman MD - 02/13/2025 2:30 PM EDTAssociated Problem(s): Coronary artery disease involving qagan tayagungin coronary artery of qagan tayagungin heart without angina pectoris History of remote LAD and diagonal artery PCI in the setting of threatened anterior infarction. No active angina. Continue secondary prevention. Orders: ECG 12 lead * Angel Fishman MD - 02/13/2025 2:30 PM EDTAssociated Problem(s): HTN (hypertension) Well controlled. No change. Orders: ECG 12 lead * Angel Fishman MD - 02/13/2025 2:30 PM EDTAssociated Problem(s): Orthostatic hypotension Resolved. Orders: ECG 12 lead * Angel Fishman MD - 02/13/2025 2:30 PM EDTAssociated Problem(s): Hyperlipidemia Tolerating med Rx. Orders: ECG 12 lead * Angel Fishman MD - 02/13/2025 2:30 PM EDT PCP: Humera Mcgowan MD HPI: Doreen Sutton is a 85 y.o. old female with past medical history of coronary artery disease statuspost anterior wall myocardial infarction and underwent stenting of a critical LAD artery and diagonal artery lesion, normalized/preserved LV systolic function with negative infiltrative cardiomyopathy work up, paroxysmal atrial fibrillation status post ablation November 2019, Watchman device in 2021 with discontinuation of Eliquis and eventual AV brittany ablation in February 2024, previously onamiodarone discontinued to concern for toxicity, atrial tachycardia, bradycardia status post [employer] dual chamber pacemaker, tricuspid regurgitation, lung opacities with unclear significance with PFTs showing normal spirometry and lung volumes with mild reduction in DLCO followed by Dr. Haddad, ELIZABETH/complex sleep apnea on CPAP, systemic and pulmonary hypertension, hyperlipidemia, hypothyroidism, GERD, depression, chronic lower back pain and past history of tobacco use. Today she presents for routine follow up. She has a pacemaker and recently underwent a routine check of her pacemaker, which revealed that the battery is expected to last for an additional 7 years. She has been primarily experiencing atrial arrhythmias, with the most recent episode of atrial fibrillation occurring in April 2024. Following her last ablation procedure, Dr. Rios adjusted her heart rate to a lower setting during a follow-up visit. She has chronic shortness of breath, but has not had orthopnea, edema or weight gain. No chest pain, palpitations, lightheadedness, presyncope or syncope. The patient reports adherence with their medications. The patient is very disspirited. She is tearful and feeling like she has nothing to live for. We have had a number of conversations regarding her loneliness over the years. She has severe back pain despite surgery. No angina, palpitations, or syncope. She has longstanding dyspnea with exertion without change. She has impaired equilibrium. ACTIVE MEDICATIONS: Medications Taking[1] PAST MEDICAL HISTORY: Patient Active Problem List Diagnosis Date Noted Elevated troponin 01/20/2024 Old ND (myocardial infarction) 01/20/2024 Orthostatic hypotension 01/20/2024 Syncope and collapse 01/20/2024 Pulmonary hypertension (CMS/HCC V24, CMS/HCC V28) 07/24/2022 - [facility] at [facility] indicates that the patient has a mean PA pressure of greater than 20 mmHg, pulmonary capillary wedge pressure of greater than 15 mmHg and pulmonary vascular resistance 3 West units indicating the patient has combined pre and postcapillary pulmonary hypertension -the etiology of the postcapillary hypertension is yet to be determined but most likely due to significant diastolic dysfunction as well as moderate mitral regurgitation and atrial fibrillation with remodeling of the left atrium Spinal stenosis of lumbar region with neurogenic claudication 07/15/2022 Other spondylosis with radiculopathy, lumbar region 06/02/2022 chronic back and lower extremity pain - multilevel degenerative disc disease by MRI analysis most pronounced at L3-4 with epidural lipomatosis causing stenosis at L5-S1 Sick sinus syndrome (CMS/HCC V24, CMS/HCC V28) 01/09/2022 Sick sinus syndrome status post permanent pacemaker implantation with a [employer] dual-chamber device. Bruising 09/01/2021 Shortness of breath on exertion 07/18/2021 Atrial tachycardia (CMS/HCC V24) 10/23/2020 Bradycardia 10/23/2020 Diastolic dysfunction 10/23/2020 Infiltrative cardiomyopathy workup negative Obesity 10/23/2020 ELIZABETH (obstructive sleep apnea) 10/23/2020 A-fib (CMS/HCC V24, CMS/HCC V28) 06/20/2020 status post ablation May 2021 Watchman device February 2024 status post AV brittany ablation Coronary artery disease involving qagan tayagungin coronary artery of qagan tayagungin heart without angina pectoris 06/20/2020 - sustained an anterior wall myocardial infarction and underwent stenting of a critical LAD artery and diagonal artery lesion; had significant left ventricular systolic dysfunction which eventually normalized following medical therapy and revascularization December 2023 transesophageal echocardiogram showed preserved left ventricular systolic function [id number] to 60% with normal regional wall motion, mildly dilated right ventricle with mild RV systolic dysfunction, moderate left atrial dilatation, left atrial appendage device well-positioned with no leaks around or through the device and no evidence of thrombus, mild to moderate calcified atherosclerotic plaquing in the descending thoracic aorta and transverse aorta with normal ascending aorta dimensions, aortic sclerosis without stenosis, small linear mobile echodensity adherent to the aortic valve most consistent with benign Lambl's excrescence, mild to moderate tricuspid regurgitation with bor derline to mild pulmonary hypertension and no other significant findings HTN (hypertension) 06/20/2020 Hyperlipidemia 06/20/2020 Resolved Problems No resolved problems to display. ALLERGIES: Allergies[2] FAMILY HISTORY: Family History[3] SOCIAL HISTORY: Social History Tobacco Use Smoking status: Former Current packs/day: 0.00 Types: Cigarettes Quit date: 05/17/1981 Years since quittin.7 Smokeless tobacco: Never Substance Use Topics Alcohol use: Not Currently REVIEW OF SYSTEMS: ROS PHYSICAL EXAM: Vitals: 02/13/25 1422 BP: (!) 144/82 BP Location: Left arm Patient Position: Sitting BP Cuff Size: Large adult Pulse: 60 SpO2: 98% Weight: 87 kg (191 lb 11.2 oz) Height: 1.575 m (62 ) APPEARANCE: Alert and tearful, though also good-humored and cogent, obese. EYES: PERRL, conjunctiva and sclera normal EARS: External ears normal. NOSE/SINUS: Nares normal. Septum midline. Mucosa normal. No drainage or sinus tenderness. MOUTH/THROAT: no erythema or exudates NECK: JVP less then 8cm H2O, No bruits., Neck supple, no adenopathy or mass HEART: RRR with normal S1 and S2, sys ejection murmur 3/6 early to mid, no diast murmurs, no gallops, no JVD appreciated CHEST: non-tender LUNG: clear to auscultation ABDOMEN: Bowel sounds normoactive, no bruits, soft, non-tender, without organomegaly or palpable masses EXTREMITIES: Extremities warm and well perfused without clubbing, cyanosis; tr edema NEURO: Awake, alert and oriented x 3 and abnormal gait SKIN: Skin color, texture, turgor normal. No rashes or lesions. EKG: Sequential pacing with effective capture TESTING: IMTIAZ reviewed from 11/07 ASSESSMENT/PLAN: Assessment & Plan Atrial fibrillation, unspecified type (CMS/HCC V24, CMS/HCC V28) Patient has undergone cardioversion and ablation therapy. She has an atrial paced rhythm with effective capture as well as AV sequential pacing. She is maintained on low-dose aspirin alone. She has had a Watchman procedure with an effective seal over the left atrial appendage. Orders: ECG 12 lead Transthoracic echocardiogram (TTE) complete with PRN contrast, bubble, strain, and 3D order panel; Future Coronary artery disease involving qagan tayagungin coronary artery of qagan tayagungin heart without angina pectoris History of remote LAD and diagonal artery PCI in the setting of threatened anterior infarction. No active angina. Continue secondary prevention. Orders: ECG 12 lead Hypertension, unspecified type Well controlled. No change. Orders: ECG 12 lead Orthostatic hypotension Resolved. Orders: ECG 12 lead Hyperlipidemia, unspecified hyperlipidemia type Tolerating med Rx. Orders: ECG 12 lead Nonrheumatic tricuspid valve regurgitation No right heart failure. Repeat echo in 6 mo. Orders: Transthoracic echocardiogram (TTE) complete with PRN contrast, bubble, strain, and 3D order panel; Future Nonrheumatic aortic valve stenosis No left heart failure. Repeat echo 6 mo. Orders: Transthoracic echocardiogram (TTE) complete with PRN contrast, bubble, strain, and 3D order panel; Future F/U with BRANDI Kulkarni APRN in 6 mos after echo. The [facility] team will continue to co-manage this patient following the plan of care as established by my initial visit and as per AHA guidelines for ongoing management and surveillance of 1. Atrial fibrillation, unspecified type (CMS/HCC V24, CMS/HCC V28) 2. Coronary artery disease involving qagan tayagungin coronary artery of qagan tayagungin heart without angina pectoris 3. Hypertension, unspecified type 4. Orthostatic hypotension 5. Hyperlipidemia, unspecified hyperlipidemia type This will include medication titration, initiation of appropriate medications and further titration, and diagnostic studies to manage this disease process. [1] Outpatient Medications Marked as Taking for the 02/13/25 encounter (Office Visit) with Angel Fishman MD Medication Sig Dispense Refill acetaminophen (TYLENOL) 500 mg tablet Take 325 mg by mouth as needed. aspirin ([place]) 81 mg capsule Take 1 Capsule by mouth daily. buPROPion (WELLBUTRIN) 100 mg tablet Take 100 mg by mouth daily. calcium carbonate-vit D3-min 600 mg-10 mcg (400 unit) tablet Take 2 Caps by mouth at bedtime. carvediloL (COREG) 12.5 mg tablet Take 1 tablet (12.5 mg total) by mouth 2 (two) times a day with meals. 180 tablet 1 cyanocobalamin (VITAMIN B-12) 500 mcg tablet Take 2 Tablets by mouth daily. dexlansoprazole (DEXILANT) [address] capsule Take 1 capsule (30 mg total) by mouth 1 (one) time eachday. Do not crush or chew. diphenoxylate-atropine (LOMOTIL) 2.5-0.025 mg per tablet Take 1 Tablet by mouth 4 times daily as needed. escitalopram (LEXAPRO) 5 mg tablet Take 5 mg by mouth daily. levothyroxine (SYNTHROID, LEVOTHROID) 125 mcg tablet Take 125 mcg by mouth daily. meclizine (ANTIVERT) 25 mg tablet Take 1 Tab by mouth as needed. mv-mn/om3/dha/epa/fish/lut/margarette (OCUVITE ADULT 50 PLUS ORAL) nitroglycerin (NITROSTAT) 0.[address] 1 Tablet under the tongue every 5 minutes as needed for Chest pain. rosuvastatin (CRESTOR) 10 mg tablet Take 10 mg by mouth daily. [2] Allergies Allergen Reactions Codeine Other syncope Niacin Sulfa (Sulfonamide Antibiotics) [3] No family history on file. documented in this encounter Plan of Treatment Upcoming Encounters Date Type Department Care Team (Late st Contact Info) Description 07/09/2025 2:00 PM EST Ancillary Procedure [facility] Cardiology [facility] [address] [place] [address] 08/14/2025 2:30 PM EDT Ancillary Procedure [facility] Cardiology [facility] [address] [place] [address] Scheduled Orders Name Type Priority Associated Diagnoses Orde r Schedule Transthoracic echocardiogram (TTE) complete with PRN contrast, bubble, strain, and 3D order panel Echocardiography Routine Atrial fibrillation, unspecified type (CMS/HCC V24, CMS/HCC V28) Nonrheumatic tricuspid valve regurgitation Nonrheumatic aortic valve stenosis Expected: 08/13/2025, Expires: 02/13/2026 documented as of this encounter Procedures Procedure Name Priority Date/Time Associated Diagnosis Comments ECG 12-LEAD Routine 02/13/2025 2:36 PM EDT Atrial fibrillation, unspecified type (CMS/HCC V24, CMS/HCC V28) Coronary artery disease involving qagan tayagungin coronary artery of qagan tayagungin heart without angina pectoris Hypertension, unspecified type Orthostatic hypotension Hyperlipidemia, unspecified hyperlipidemia type documented in this encounter Results * ECG 12 lead (02/13/2025 2:36 PM EDT) Ventricular Rate ECG 60 BPM GEMUSE Atrial Rate 60 BPM GEMUSE P-R Interval 168 ms GEMUSE QRS Duration 144 ms GEMUSE Q-T Interval 486 ms GEMUSE QTc 486 ms GEMUSE P Wave [place] 26 degrees GEMUSE R [place] 78 degrees GEMUSE T [place] 72 degrees GEMUSE ECG Interpretation AV dual-paced rhythm Abnormal ECG When compared with ECG of 20-JUL-2024 11:22, No significant change was found Confirmed by MD NATAN, ANGEL ([id number]) on 02/13/2025 5:44:46 PM GEMUSE 02/13/2025 2:36 PM EDT 02/13/2025 5:44 PM EDT us Angel Fishman MD ECG ORDERABLES Final Result GEMUSE documented in this encounter Visit Diagnoses Diagnosis Atrial fibrillation, unspecified type (CMS/HCC V24, CMS/HCC V28)- Primary Coronary artery disease involving qagan tayagungin coronary artery of qagan tayagungin heart without angina pectoris Hypertension, unspecified type Orthostatic hypotension Hyperlipidemia, unspecified hyperlipidemia type Nonrheumatic tricuspid valve regurgitation Nonrheumatic aortic valve stenosis documented in this encounter Historical Medications * This list may reflect changes made after this encounter. dexlansoprazole (DEXILANT) [address] capsule Take 1 capsule (30 mg total) by mouth 1 (one) time each day. Do not crush or chew. added in this encounter Care Teams Soccer Coach Relationship Specialty Start Date End Date Humera Mcgowan MD [address] [place] [address] PCP - General Internal Medicine 02/09/25 documented as of this encounter
--- OUTSIDE RECORDS SUMMARY | 2025-02-13 16:35 | XMS_ITS | Encounter Summary ---
Author Organization [facility] Address [address] [place] [address] Care Team Providers Care Residential Life Director Name Role Phone Humera Mcgowan MD Primary Care Provider [phone] Encounter Details Date Type Department Care Team (Late Contact Info) Description 02/13/2025 4:35 PM EDT Ancillary Procedure [facility] Cardiology [facility] [address] [address] [facility] [address] [place] [address] Arrived Social History Tobacco Use Types Packs/Day Years [...] on file documented as of this encounter Plan of Treatment Upcoming Encounters Date Type Department Care Team (Late Contact Info) Description 07/09/2025 2:00 PM EST Ancillary Procedure [facility] Cardiology [facility] [address] [place] [address] 08/14/2025 2:30 PM EDT Ancillary Procedure [facility] Cardiology [facility] [address] [address] [place] [address] documented as of this encounter Procedures Procedure Name Priority Date/Time Associated Diagnosis Comments CARDIAC DEVICE CHECK- REMOTE- MURJ Routine 02/13/2025 4:30 PM EDT documented in this encounter Results * Cardiac device check - Remote- MURJ (02/13/2025 4:30 PM EDT) Date Time Interrogation Session [id number] CV DEVICE CHECK Type Interrogation Session Remote Scheduled CV DEVICE CHECK Implantable Pulse Generator 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 [employer] CV DEVICE CHECK Implantable Pulse Generator Type IPG CV DEVICE CHECK Implantable Pulse Generator Model 2272 Assurity MRI(TM) CV DEVICE CHECK Implantable Pulse Generator Serial Number [id number] CV DEVICE CHECK Implantable Pulse Generator Implant Date [id number] CV DEVICE CHECK Battery Remaining Percentage 46.00 CV DEVICE CHECK Battery Remaining Longevity 47.0 CV DEVICE CHECK Battery Voltage 2.980 CV D EVICE CHECK Battery CONTROL PANEL BUILDER Trigger 2.600 CV DEVICE CHECK Battery Status Middle of Service CV DEVICE CHECK Osito Statistic RA Percent Paced 56.00 CV DEVICE CHECK [place] Statistic RV Percent Paced 99.00 CV DEVICE CHECK Atrial Tachy Statistic AT/AF [place] Percent 1.00 CV DEVICE CHECK Lead Channel Sensing Intrinsic Amplitude 2.500 CV DEVICE CHECK Lead Channel Setting Sensing Sensitivity 0.30 CV DEVICE CHECK Lead Channel Impedance Value 360 CV DEVICE CHECK Lead Channel Pacing Threshold Amplitude 0.625 CV DEVICE CHECK Lead Channel Pacing Threshold Pulse Width 0.5 CV DEVICE CHECK Lead Channel RA Pacing Threshold Date 2025-01-20 CV DEVICE CHECK Lead Channel Setting Pacing Amplitude 2.000 CV DEVICE CHECK Lead Channel Setting Pacing Pulse Width 0.5 CV DEVICE CHECK Lead Channel Sensing Intrinsic Amplitude 12.000 CV DEVICE CHECK Lead Channel Setting Sensing Sensitivity 0.50 CV DEVICE CHECK Lead Channel Impedance Value 400 CV DEVICE CHECK Lead Channel Setting Pacing Amplitude 2.000 CV DEVICE CHECK Lead Channel Setting Pacing Pulse Width 0.5 CV DEVICE CHECK [place] Setting Mode (NBG Code) DDDR CV DEVICE CHECK [place] Setting Lower Rate Limit 60 CV DEVICE CHECK [place] Setting AT Mode Switch Rate 140 CV DEVICE CHECK [place] Setting Maximum Tracking Rate 110 CV DEVICE CHECK [place] Setting Maximum Sensor Rate 110 CV DEVICE CHECK [place] Setting PAV Delay 170 CV DEVICE CHECK [place] Setting JADE Delay 150 CV DEVICE CHECK Date of Service 2025-02-13 CV DEVICE CHECK Anatomical Region Laterality Modality Device Interroga tion 01/20/2025 2:00 AM EDT Impressions 02/13/2025 12:25 PM EDT Normal Remote: With Events * Normal Device Function * Events or Alerts: 11 * AF episodes rate controlled stable burden * Battery: Battery is at 46%, 3.92 yrs * Sensing, impedance and thresholds reviewed * Programmed parameters reviewed * Presenting rhythm reviewed * Heart Rate Histograms reviewed Narrative Procedure Note Wei Rios MD - 02/13/2025 IMPRESSION: Normal Remote: With Events * Normal Device Function * Events or Alerts: 11 * AF episodes rate controlled stable burden * Battery: Battery is at 46%, 3.92 yrs * Sensing, impedance and thresholds reviewed * Programmed parameters reviewed * Presenting rhythm reviewed * Heart Rate Histograms reviewed Wei Rios MD CV IMPLANTABLE CARDIAC DEVICE PROCEDURES Final Result documented in this encounter Visit Diagnoses Not on filedocumented in this encounter Care Teams Residential Life Director Relationship Specialty Start Date End Date Humera Mcgowan MD [address] [place] [address] PCP - General Internal Medicine 02/09/25 documented as of this encounter
--- OUTSIDE RECORDS SUMMARY | 2025-02-16 15:18 | XMS_ITS | Encounter Summary ---
Author Organization [facility] Address [address] [place] [address] Phone Care Team Providers Care Radio Time Buyer Name Role Phone Humera Kim MD Primary Care Provider [phone] Encounter Details Date Type Department Care Team (Late st Contact Info) Description 01/29/2023 Documentation Only [facility] [address] [place] [phone] Riley Honeycutt MD [address] [place] [address] [place] [phone] Social History Tobacco Use Types Packs/Day Years Used Date Smoking Tobacco: Former Smokeless Tobacco: Never Comments Unknown Sex and Gender Information Value Date Recorded Sex Assigned at Not on file Legal Sex Female 4:31 PM EST Gender Identity Not on file Sexual Orientation Not on file documented as of this encounter Plan of Treatment Upcoming Encounters Date Type Department Care Team (Late st Contact Info) Description 02/20/2025 3:10 PM EDT Office Visit [facility] [address] [place] [phone] Riley Honeycutt MD [address] [place] [address] [place] [address] documented as of this encounter Visit Diagnoses Not on filedocumented in this encounter Care Teams Radio Time Buyer Relationship Specialty Start Date End Date Humera Kim MD [address] [place] [address] PCP - General Internal Medicine 12/02/22 documented as of this encounter
--- OUTSIDE RECORDS SUMMARY | 2025-02-16 15:18 | XMS_ITS | Encounter Summary ---
Author Organization [facility] Address [address] [place] [address] Care Team Providers Care Open Tenter Operator Name Role Phone Humera Mcgowan MD Primary Care Provider [phone] Reason for Visit * Reason Onset Date Comments Med Refill 02/07/2025 Carvediolol Encounter Details Date Type Department Care Team (Late st Contact Info) Description 02/07/2025 Telephone [facility] Cardiology [address] [place] [address] Wei Fishman MD [address] [place] [address],[address] [id number] Social History Tobacco Use Types Packs/Day Years [...] on file documented as of this encounter Ordered Prescriptions Prescription Sig Dispense Quantity Refills Last Filled Start Date End Date carvediloL (COREG) 12.5 mg tablet Take 1 tablet (12.5 mg total) by mouth 2 (two) times a day with meals. 180 tablet 1 02/07/2025 documented in this encounter Progress Notes * Shlel Thacker RN - 02/07/2025 1:23 PM EDT Confirmed with the patient she takes Carvedilol 12.5 mg BID, not 25 mg BID that was documented in med module. Rx sent to her pharmacy and she is aware. * Alyssa Hendrix - 02/07/2025 1:17 PM EDT Patient called you back. I did confirm with patient the dose of carvedilol taken. She takes 12mg twice a day with meals. D[facility]en [facility]. Doreen will be away from the phone, she has a dentist appointment at 2:00 today. Call back number is [phone]. * Shell Thacker RN - 02/07/2025 10:33 AM EDT MARIBEL 07/20/24, next 02/13/25 Left a message on the patient's voicemail to verify the dose of Carvedilol she takes * Bonita Tidwell - 02/07/2025 10:02 AM EDT Patient called and stated she went to the pharmacy to pickling grader her Carvedilol prescription and the pharmacy said they have sent over a request for a refill 3 times, and have not heard back. Patient says she will be out of this medication by tomorrow, and would like a refill. The Carvedilol is 12.5 milligrams, and she takes it 2 times a day. She would like a 90 day supply sent to [facility] in [place]. Patient can be reached at [phone]. documented in this encounter Plan of Treatment Upcoming Encounters Date Type Department Care Team (Late st Contact Info) Description 07/09/2025 2:00 PM EST Ancillary Procedure [facility] - [address] [place] [address] 08/14/2025 2:30 PM EDT Ancillary Procedure [facility] - [facility] [address] [place] [address] documented as of this encounter Visit Diagnoses Not on filedocumented in this encounter Discontinued Medications Medication Sig Discontinue Reason Start Date End Da te carvediloL (COREG) 12.5 mg tablet Take 2 Tablets by mouth 2 times daily (with meals). Dose adjustment 02/08/2024 02/07/2025 documented as of this encounter Care Teams Open Tenter Operator Relationship Specialty Start Date End Date Humera Mcgowan MD [address] [place] [address] PCP - General Internal Medicine 02/09/25 documented as of this encounter
--- OUTSIDE RECORDS SUMMARY | 2025-02-16 15:18 | XMS_ITS | Clinical Summary ---
Author Organization [facility] Address [address] [place] [address] Care Team Providers Care Manager Clinical Informatics Name Role Phone Juwan Lizama MD Primary Care Provider [phone] Allergies Active Allergy Reactions Criticality Noted Date Comments Codeine 05/22/2021 Niacin Rash Low 05/22/2021 Sulfa Antibiotics 05/22/2021 Medications Medication Sig Dispensed Refills Start Date End Date Status carvedilol (COREG) 12.5 MG tablet Take 12.5 mg by mouth 2 (two) times a day with meals. 0 Active apixaban (ELIQUIS) 5 MG TABS tablet Take by mouth every 12 (twelve) hours. 0 Active rosuvastatin (CRESTOR) tablet 5 mg Take 5 mg by mouth daily. 0 Active levothyroxine (SYNTHROID) tablet 125 mcg Take 125 mcg by mouth every morning on an empty stomach. 0 Active buPROPion (WELLBUTRIN) 100 MG tablet Take 100 mg by mouth daily. 0 Active escitalopram (LEXAPRO) 5 MG tablet Take 5 mg by mouth daily. 0 Active vitamin B-12 (CYANOCOBALAMIN) 500 MCG tablet Take 500 mcg by mouth daily. 0 Active Multiple Vitamins-Minerals (OCUVITE-LUTEIN PO) Take by mouth daily. 0 Active CALCIUM-VITAMIN D PO Take by mouth every night at bedtime. 2 tabs at night 0 Active Dexlansoprazole 30 MG capsule Take 30 mg by mouth daily. 0 Active Diphenoxylate-Atropi ne (LOMOTIL PO) Take by mouth daily as needed. 0 Active nitroglycerin (NITROSTAT) 0.[address] 0.3 mg under the tongue every 5 (five) minutes as needed for chest pain. 0 Active meclizine (ANTIVERT) 25 MG tablet Take 25 mg by mouth 3 (three) times a day as needed. 0 Active ipratropium (ATROVENT) 0.03 % nasal spray spray or apply 2 sprays inside Nose 3 (three) times a day. 0 Active Acetaminophen (TYLENOL ARTHRITIS PAIN PO) Take by mouth as needed. 0 Active aspirin EC 81 MG tablet Take 81 mg by mouth daily. 0 Active dilTIAZem (CARDIZEM CD) 360 MG 24 hr capsule Take 1 capsule (360 mg total) by mouth daily. 30 capsule 11 06/11/2021 Active Active Problems Problem Noted Date Diagnosed Date Atrial fibrillation 06/09/2021 Social History Tobacco Use Types Packs/Day Years Used Date Smoking Tobacco: Former Smokeless Tobacco: Never Alcohol Use Standard Drinks/Week Comments Never 0 (1 standard drink = 0.6 oz pur e alcohol) Sex and Gender Information Value Date Recorded Sex Assigned at Female 06/05/2021 1:48 PM EST Gender Identity Not on file Sexual Orientation Not on file Job Start Date Occupation Industry Not on file Not on file Not on file Last Filed Vital Signs Vital Sign Reading Time Taken Comments Blood Pressure 145/102 06/10/2021 8:04 AM EST Pulse 124 06/10/2021 8:04 AM EST Temperature 36.7 C (98.1 F) 06/10/2021 8:04 AM EST Respiratory Rate 25 06/10/2021 8:04 AM EST Oxygen Saturation 95% 06/10/2021 8:04 AM EST Inhaled Oxygen Concentration - - Weight 97 kg (213 lb 12.8 oz) 06/10/2021 6:54 AM EST Height 157.5 cm (5' 2 ) 06/09/2021 6:12 AM EST Body Mass Index 39.1 06/09/2021 6:12 AM EST Plan of Treatment Health Maintenance Due Date Last Done Comments COVID-19 Vaccine (#1) 1940 Depression Screening 1952 BMI Counseling 01/11/1958 Preventative Health Evaluation 01/11/1958 Shingrix-Zoster Vaccine (1 of 2) 01/11/1990 Fall Risk Assessment 01/11/2005 Osteoporosis Screening (DEXA Scan) 01/11/2005 Pneumococcal Vaccine (2 of 2 - PCV) 03/12/2013 03/12/2012 RSV Adult > 60+ Yrs or Pregn ant (1 - 1-dose 75+ series) 01/11/2015 Influenza Vaccine (#1) 2025 DTap / Tdap / Td (2 - Td or Tdap) 03/25/2031 021 Hepatitis B Vaccines Aged Out No long er eligible based on patient's age to complete this topic RSV Ped < 20 months Aged Out No longe r eligible based on patient's age to complete this topic Medical Devices Implanted Type Area Solid Fiber Paster Operator Device Identifier Shelf Expiration Date Model / Serial / Lot Device Clsur Watchman Flx Krista 20mm Bsci-Prnt [id number] - [id number] Implanted:Qty: 1 on 06/09/2021 by Wei Rios MD at [facility] Left: Chest commercet[employer] [id number] / Advance Directives For more information, please contact: [phone] Documents on File Type Date Recorded 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 Code Status History Code Status Date Activated Date Inactivated Comments Full Code 06/09/2021 9:36 AM 06/09/2021 9:38 AM This code status was ascertained in the following way: discussion with patient . Care Teams Manager Clinical Informatics Relationship Specialty Start Date End Date Juwan Lizama MD [address] [place] [address] PCP - General Internal Medicine 06/05/21
--- OUTSIDE RECORDS SUMMARY | 2025-02-16 15:18 | XMS_ITS | Encounter Summary ---
Author Organization [facility] Address [address] [place] [address] Phone Care Team Providers Care Advertising Specialist Name Role Phone Humera Kim MD Primary Care Provider [phone] Encounter Details Date Type Department Care Team (Late Contact Info) Description 01/01/2025 Documentation Only [facility] [address] [address] Dana Small [address] [place] [address] Social History Tobacco Use Types Packs/Day Years [...] Visit [facility] [address] [place] [place] [address] Riley Honeycutt MD [address] [place] [address] [place] [address] documented as of this encounter Visit Diagnoses Not on filedocumented in this encounter Care Teams Advertising Specialist Relationship Specialty Start Date End Date Humera Kim MD [address] [facility] [address] [place] [address] PCP - General Internal Medicine 12/02/22 documented as of this encounter
--- OUTSIDE RECORDS SUMMARY | 2025-02-16 15:18 | XMS_ITS | Patient Health Record ---
Author Organization [facility] Address [address] [place] [address] Care Team Providers Care Advanced Seal Delivery System Name Role Phone Humera Mcgowan Primary Care Provider UnavailSrinivas Ayala Unavailable [phone] Beau Eli Unavailable [phone] Gracie Damon Unavailable [phone] Allergies Allergen (clinical drug ingredient) Drug/Non Drug Allergy documented on EMR Reaction Allergy Type Onset Date Status niacin Niacin Unknown Drug Allergy Active aspirin Aspirin Emprin/Hepatiti s Has to be a baby aspirin Drug Allergy Active codeine Codeine Fainting Drug Allergy Active Substance with sulfonamide structure and antibacterial mechanism of action (substance) Sulfa Antibiotics Unknown Drug Allergy Active Reason For Referral No Information Medications Medication SIG (Take, Route, Frequency, Duration) Notes Start Date End Date Status Meclizine HCl prn Active Levothyroxine Sodium 112 mcg Active Citracal Plus 400 units Not-Taking Escitalopram Oxalate 20 mg Active Tylenol 500 mg Not-T aking Dexilant 30 MG Orally Once a day Active Irbesartan 300 MG Orally once a day Not-Taking busPIRone HCl Not-Ta lynda Citalopram & Diet Manage Prod Not-Taking Plavix 75 MG 1 tablet Orally Once a day; Duration: 30 day(s) as needed Not-Taking Tylenol Not-Taking Metoprolol Tartrate 50 MG Orally Not-Taking Imodium A-D 2 mg Not -Taking Amiodarone HCl 200 MG 1 tablet Orally On ce a day; Duration: 30 day(s) Not-Taking amLODIPine Besylate Not-Taking Eliquis 5 MG as directed Orally Not-Taking Ipratropium Fitzwilliam HFA Not-Taking dilTIAZem HCl 240mg Not-Ta lynda Crestor 10 MG 1 tablet Orally daily; Duration: 30 days Active Furosemide Not-Takin g Calcium + D 400 IU A ctive buPROPion HCl ER (XL) 100 mg Once a day Active Citracal + D Active Vitamin B12 500 mcg Active Diphenoxylate-Atropine 2.5-0.025 MG/5ML 5 ml as needed Orally Four times a day Active Ammonium Lactate 12 % 1 application Externally to affected areas of dry skin to feet except for between the toes Twice a day; Duration: 30 days Active Aspirin 81 mg Active Carvedilol 12.5 MG half a tablet Orally Twice a day Active Nitroglycerin .4 mg 1 capsule Orally Three times a day; Duration: 30 day(s) prn Active Immunizations Vaccine Route Administration Date Status Comme nts Influenza Unknown 01/17/2024 Administered COVID-19 Pfizer BioNTech Vaccine Unknown 07/14/2020 Adm inistered Social History Tobacco Use: Social History Observation Description Date Details (start date - stop date) Never Smoker NA - NA Tobacco use other than smoking: Question Answer Notes Are you an other tobacco user? No Tobacco Control (Standard) Question Answer Notes Tobacco use: Nonsmoker Additional Findings: Tobacco non-user Current no nsmoker AUDIT-C (Standard) Question Answer Notes Did you have a drink containing alcohol in the p ast year? No Points 0 Interpretation Negative Problems Problem Type SNOMED Code ICD Code Onset Dates Problem Status W/U Status Risk Notes Problem Bilateral atherosclerosis of arteries of lower limbs (disorder) ([id number] ) Atherosclerosis of [place] artery of both lower extremities, with unspecified presence of clinical manifestation (I70.203) Active confirmed Q7(A), Q8(2B), Q9(1B,2 C) Vital Signs Heart Rate 60 /min 06/06/2024 Blood pressure diastolic 65 mm Hg 02/07/2025 Height 5 ft 3 in in 02/07/2025 Blood pressure systolic 128 mm Hg 02/07/2025 Weight 189 lbs 02/07/2025 BMI 33.48 kg/m2 02/07/2025 Procedures Procedure Date Ordered Date Performed Result Body Sit e 68925-NLQKKGQ NAIL, 6 OR MORE 06/06/2024 N/A 22785-IQDY SKIN LESIONS, 2 TO 4 06/06/2024 N/A 02646-SZWDRKV NAIL, 6 OR MORE 08/16/2024 N/A 92705-PJAZ SKIN LESIONS, 2 TO 4 08/16/2024 N/A 99233-YWEETFT NAIL, 6 OR MORE 11/15/2024 N/A 44251-Hhedqeut Plate 11/15/2024 N/A 92486-UXDP SKIN LESIONS, 2 TO 4 11/15/2024 N/A 26974-UEVWLUH NAIL, 6 OR MORE 02/07/2025 N/A 01101-CRID SKIN LESIONS, 2 TO 4 02/07/2025 N/A Encounters Encounter Location Date Provider Diagnosis [address] [address] 03/14/2024 Beau Eli Tinea unguium B35.1 ; Ingrowing nail L60.0 ; Pain in right toe(s) M79.674 ; Pain in left toe(s) M79.675 ; Other hammer toe(s) (acquired), left foot M20.42 ; Other hammer toe(s) (acquired), right foot M20.41 and Unspecified atherosclerosis of [place] arteries of extremities, bilateral legs I70.[address] [address] 06/06/2024 Gracie Damon Atherosclerosis of [place] artery of both lower extremities, with unspecified presence of clinical manifestation I70.203 ; Tinea unguium B35.1 ; Pain in right toe(s) M79.674 and Pain in left toe(s) M79.[address] [address] 08/16/2024 Srinivas Montez Atherosclerosis of [place] artery of both lower extremities, with unspecified presence of clinical manifestation I70.203 ; Tinea unguium B35.1 ; Pain in right toe(s) M79.674 ; Pain in left toe(s) M79.675 and Xerosis of skin L85.[address] [address] 11/15/2024 Srinivas Montez Atherosclerosis of [place] artery of both lower extremities, with unspecified presence of clinical manifestation I70.203 ; Tinea unguium B35.1 ; Pain in right toe(s) M79.674 ; Pain in left toe(s) M79.675 ; Xerosis of skin L85.3 and Ingrown nail L60.0 [facility] [address] [address] 02/07/2025 Srinivas Rodriguezunier Atherosclerosis of [place] artery of both lower extremities, with unspecified presence of clinical manifestation I70.203 ; Tinea unguium B35.1 ; Pain in right toe(s) M79.674 and Pain in left toe(s) M79.675 Assessments Encounter Date Diagnosis (ICD Code) Assessment Notes Treatment Notes Treatment Clinical Notes Section Notes 03/14/2024 Tinea unguium (ICD-10 - B35.1) 06/06/2024 Atherosclerosis of [place] artery of both lower extremities, with unspecified presence of clinical manifestation (ICD-10 - I70.203) Q7(A), Q8(2B), Q9(1B,2C) 08/16/2024 Tinea unguium (ICD-10 - B35.1) 08/16/2024 Atherosclerosis of [place] artery of both lower extremities, with unspecified presence of clinical manifestation (ICD-10 - I70.203) Q7(A), Q8(2B), Q9(1B,2C) 11/15/2024 Tinea unguium (ICD-10 - B35.1) 11/15/2024 Atherosclerosis of [place] artery of both lower extremities, with unspecified presence of clinical manifestation (ICD-10 - I70.203) Q7(A), Q8(2B), Q9(1B,2C) 02/07/2025 Tinea unguium (ICD-10 - B35.1) 02/07/2025 Atherosclerosis of [place] artery of both lower extremities, with unspecified presence of clinical manifestation (ICD-10 - I70.203) Q7(A), Q8(2B), Q9(1B,2C) 02/07/2025 Pain in right toe(s) (ICD-10 - M79.674) 11/15/2024 Pain in right toe(s) (ICD-10 - M79.674) 08/16/2024 Pain in right toe(s) (ICD-10 - M79.674) 06/06/2024 Tinea unguium (ICD-10 - B35.1) 03/14/2024 Ingrowing nail (ICD-10 - L60.0) 03/14/2024 Pain in right toe(s) (ICD-10 - M79.674) 08/16/2024 Pain in left toe(s) (ICD-10 - M79.675) 06/06/2024 Pain in right toe(s) (ICD-10 - M79.674) 11/15/2024 Pain in left toe(s) (ICD-10 - M79.675) 02/07/2025 Pain in left toe(s) (ICD-10 - M79.675) 11/15/2024 Xerosis of skin (ICD-10 - L85.3) 06/06/2024 Pain in left toe(s) (ICD-10 - M79.675) 03/14/2024 Pain in left toe(s) (ICD-10 - M79.675) 03/14/2024 Other hammer toe(s) (acquired), left foot (ICD-10 - M20.42) 11/15/2024 Ingrown nail (ICD-10 - L60.0) 08/16/2024 Xerosis of skin (ICD-10 - L85.3) 03/14/2024 Other hammer toe(s) (acquired), right foot (ICD-10 - M20.41) 03/14/2024 Unspecified atherosclerosis of [place] arteries of extremities, bilateral legs (ICD-10 - I70.203) Plan Of Treatment Pending Test Test Name Order Date 83431-UVAXCJI NAIL, 6 OR MORE 02/24/2011 22328-UCRBWWQ NAIL, 6 OR MORE 05/08/2011 05170-BVNQRDT NAIL, 6 OR MORE 07/24/2011 75403-HEQPMBC NAIL, 6 OR MORE 10/20/2011 63382-CUWHNYO NAIL, 6 OR MORE 01/22/2012 60654-VFQHECU NAIL, 6 OR MORE 04/22/2012 25744-GCEAYUE NAIL, 6 OR MORE 07/26/2012 97239-NAJMRMZ NAIL, 6 OR MORE 01/10/2013 00804-RURAAZS NAIL, 6 OR MORE 04/04/2013 29019-ZFXFGEB NAIL, 6 OR MORE 06/16/2013 78979-SMFREIY NAIL, 6 OR MORE 08/25/2013 65966-LEFQPFF NAIL, 6 OR MORE 11/21/2013 88719-IULAYBA NAIL, 6 OR MORE 10/25/2012 95522-LVMBDJB NAIL, 6 OR MORE 02/20/2014 41178-IYDICVM NAIL, 6 OR MORE 05/22/2014 82525-GNPTMFA NAIL, 6 OR MORE 08/14/2014 39601-RMTXKQT NAIL, 6 OR MORE 10/30/2014 85224-ZMZXBRQ NAIL, 6 OR MORE 01/04/2015 35753-LBTZUJH NAIL, 6 OR MORE 06/14/2015 33947-HWMMOGX NAIL, 6 OR MORE 09/13/2015 34299-ENFUOQJ NAIL, 6 OR MORE 01/17/2016 35834-STSSLFB NAIL, 6 OR MORE 04/21/2016 87491-OZMGCBV NAIL, 6 OR MORE 07/14/2016 06912-PRCUASV NAIL, 6 OR MORE 10/13/2016 42703-FEKQLUJ NAIL, 6 OR MORE 03/15/2015 09585-WZPLMBK NAIL, 6 OR MORE 12/22/2016 94787-BXRYMFA NAIL, 6 OR MORE 03/26/2017 01170-ONSCZSD NAIL, 6 OR MORE 06/25/2017 42475-PQKAMPT NAIL, 6 OR MORE 10/08/2017 21998-ZWGWVYM NAIL, 6 OR MORE 01/07/2018 91425-JGEJGNI NAIL, 6 OR MORE 03/11/2018 57318-PVAPQYC NAIL, 6 OR MORE 06/06/2024 16104-DCNXMCR NAIL, 6 OR MORE 08/16/2024 62345-LHSGVXF NAIL, 6 OR MORE 11/15/2024 11923-VYOUDLE NAIL, 6 OR MORE 02/07/2025 68712-Xepjlqcs Plate 03/15/2015 84695-Asebtsdm Plate 11/15/2024 00185-Vzrrdtxs Plate 06/25/2017 13272-Fubsehml Plate 10/20/2016 50930-Wyeshikk Plate 06/14/2015 53034-Auqbwvwo Plate 01/04/2015 94502-Whdfezav Plate 10/30/2014 31575-Dhflvztk Plate 08/14/2014 38268-Wykspcqu Plate 05/22/2014 79375-Owhdmzcu Plate 02/20/2014 39547-Zjruquxu Plate 10/25/2012 47339-Yhccbmqr Plate 01/10/2013 10947-Sbwtaglb Plate 11/21/2013 17279-Waqkussh Plate 07/26/2012 63419-Mcaxmqjf Plate 04/22/2012 45450-Fwobcrzl Plate 01/22/2012 02736-Houwsdld Plate 02/24/2011 16855-Ifxubxoe Plate 10/20/2011 57959-Ejbvbood Plate 07/24/2011 77290-Zavqjgnl Plate 05/08/2011 73073-Tdvamrlb Plate Each Additional 56168- Debride <25 sq cm 06/28/2015 30374- Debride <25 sq cm 03/15/2015 17423- Debride <25 sq cm 07/16/2017 78928- Debride <25 sq cm 05/08/2011 69731- Debride <25 sq cm 07/24/2011 11853- Debride <25 sq cm 02/24/2011 57099-KZVB SKIN LESIONS, OVER 4 07/25/19 20 83883-AEMO SKIN LESIONS, OVER 4 10/24/19 20 41511-IHXB SKIN LESIONS, OVER 4 02/13/20 20 91863-SHNR SKIN LESIONS, OVER 4 05/21/19 21 19040-WZCW SKIN LESIONS, OVER 4 08/21/19 21 45486-JSQZ SKIN LESIONS, OVER 4 12/21/19 21 89201-DUNO SKIN LESIONS, OVER 4 03/21/20 21 81083-NDMD SKIN LESIONS, OVER 4 08/02/19 22 96302-BEGJ SKIN LESIONS, 2 TO 4 11/16/19 25 75445-QYGM SKIN LESIONS, 2 TO 4 08/17/19 25 90459-SPZF SKIN LESIONS, 2 TO 4 06/06/19 25 40469-PAKL SKIN LESIONS, 2 TO 4 02/08/20 25 56362- Nail Unit Biopsy 01/07/2018 Next Appt Details Provider Name:Srinivas Montez , 05/21/2025 02:00:00 PM, [address] [facility], [address], [place], [address], Insurance Providers Payer Name Payer Address Payer Phone Subscriber Number Group Number Insured Name Patient Relationship to Insured Coverage Start Date Coverage End Date Medicare National [facility] [address] [place] [address] [id number] Doreen Sutton Self - patient is the insured [employer] [address] JET LUO [id number] Doreen Sutton Self - patient is the insured Medical (General) History Medical History History ICD Code Arthritis Atrial fibrillation back, hip, knee pain chicken pox Cholesterol depression heart attack hepatitis C hypertension measles mumps osteoporosis Pacemaker psoriasis/eczema reflux thyroid disorder Vertigo Pulmonary hypertension Surgical History Surgery Date(Month/Year) cataract surgery bilateral eyes 2005 cholecystectomy 1991 left knee arthroscopy 05/26/2007 cardiac pacemeker 12/26/19 back surgery 08/05/22 back surgery 10/11/23 heart ablation 03/03/2024 Hospitalization History Reason Date(Month/Year) [facility]- fainted and fell, 5 day stay 10/2023 [place] Heart 06/09/21 [facility]- a fib 02/21/21 [facility] Pacemaker 12/26/19 [facility] - heart beat down to 30 06/2019 [facility] - acute Afib onset 04/2019 [facility] - elevated BP, low heart rate- 7 day s 03/2012 [facility] heart attack 01/12, vertigo [facility] 10/19/09
--- OUTSIDE RECORDS SUMMARY | 2025-02-16 15:18 | XMS_ITS | Encounter Summary ---
Author Organization [facility] Address [address] [place] [address] Phone Care Team Providers Care Software Recruiter Name Role Phone Humera Kim MD Primary Care Provider [phone] Encounter Details Date Type Department Care Team (Late st Contact Info) Description 12/08/2022 Documentation Only [facility] [address] [place] [phone] Riley Honeycutt MD [address] [place] [address] [place] [phone] Social History Tobacco Use Types Packs/Day Years [...] Visit [facility] [address] [place] [phone] Riley Honeycutt MD [address] [place] [address] [place] [address] documented as of this encounter Visit Diagnoses Not on filedocumented in this encounter Care Teams Software Recruiter Relationship Specialty Start Date End Date Humera Kim MD [address] [facility] [address] [place] [address] PCP - General Internal Medicine 12/02/22 documented as of this encounter
--- OUTSIDE RECORDS SUMMARY | 2025-02-16 15:19 | XMS_ITS | Encounter Summary ---
Author Organization [facility] Address [address] [place] [address] Phone Care Team Providers Care Paver Name Role Phone Humera Kim MD Primary Care Provider [phone] Encounter Details Date Type Department Care Team (Late st Contact Info) Description 05/30/2021 Documentation Only [facility] [address] [place] [phone] Verónica Myrick PA Social History Tobacco Use Types Packs/Day Years [...] Visit [facility] [address] [place] [phone] Riley Honeycutt MD [address] [place] [address] [place] [phone] documented as of this encounter Visit Diagnoses Not on filedocumented in this encounter Care Teams Paver Relationship Specialty Start Date End Date Humera Kim MD [address] [facility] [address] [place] [address] PCP - General Internal Medicine 12/02/22 documented as of this encounter
--- OUTSIDE RECORDS SUMMARY | 2025-02-16 15:19 | XMS_ITS | Clinical Summary ---
Author Organization [facility] Address [address] [place] [address] Phone Care Team Providers Care First Calender Worker Name Role Phone Humera Mcgowan MD Primary Care Provider Allergies Active Allergy Reactions Criticality Noted Date Comments Codeine Other 06/20/2020 syncope Niacin 06/20/2020 Sulfa (Sulfonamide Antibiotics) 08/2020 Medications mv-mn/om3/dha/e pa/fish/lut/margarette (OCUVITE ADULT 50 PLUS ORAL) Active acetaminophen (TYLENOL) 500 mg tablet Take 325 mg by mouth as needed. Active aspirin ([place]alore) 81 mg capsule Take 1 Capsule by mouth daily. Active buPROPion (WELLBUTRIN) 100 mg tablet Take 100 mg by mouth daily. Active calcium carbonate-vit D3-min 600 mg-10 mcg (400 unit) tablet Take 2 Caps by mouth at bedtime. Active cyanocobalamin (VITAMIN B-12) 500 mcg tablet Take 2 Tablets by mouth daily. Active digoxin (LANOXIN) 250 mcg (0.25 mg) tablet Take 1 Tablet by mouth daily. Active diphenoxylate-a tropine (LOMOTIL) 2.5-0.025 mg per tablet Take 1 Tablet by mouth 4 times daily as needed. Active escitalopram (LEXAPRO) 5 mg tablet Take 5 mg by mouth daily. Active levothyroxine (SYNTHROID, LEVOTHROID) 125 mcg tablet Take 125 mcg by mouth daily. Active meclizine (ANTIVERT) 25 mg tablet Take 1 Tab by mouth as needed. Active nitroglycerin (NITROSTAT) 0.[address] 1 Tablet under the tongue every 5 minutes as needed for Chest pain. 4 Active rosuvastatin (CRESTOR) 10 mg tablet Take 10 mg by mouth daily. Active carvediloL (COREG) 12.5 mg tablet Take 1 tablet (12.5 mg total) by mouth 2 (two) times a day with meals. 180 tablet 1 5 Active dexlansoprazole (DEXILANT) [address] capsule Take 1 capsule (30 mg total) by mouth 1 (one) time each day. Do not crush or chew. Active carvediloL (COREG) 12.5 mg tablet Take 2 Tablets by mouth 2 times daily (with meals). 4 02/08/20 25 Discontinu ed(Dose adjustment ) Active Problems Problem Noted Date Diagnosed Date Elevated troponin 01/20/2024 Old [place] (myocardial infarction) 01/20/2024 Orthostatic hypotension 01/20/2024 Assessment & Plan (02/13/2025 5:44 PM EDT): Resolved. Orders: ECG 12 lead Assessment & Plan (07/20/2024 12:10 PM EST): No significant associated symptoms. Primarily developed during prolonged hospitalization. Syncope and collapse 01/20/2024 Pulmonary hypertension (CMS/HCC V24, CMS/HCC V28 ) 07/24/2022 Overview (07/20/2024): July 2022 - R[facility] at [facility] indicates that the patient has a mean [...] fibrillation with remodeling of the left atrium Assessment & Plan (07/20/2024 12:10 PM EST): Mild on echocardiogram from December 2023. Breathing stable. Continue to follow up with pulmonary and treated ELIZABETH. No currently on diuretic. Spinal stenosis of lumbar re gion with neurogenic claudication 07/15/2022 Other spondylosis with radiculopathy, lumbar reg ion 06/02/2022 Overview (07/20/2024): chronic back and lower extremity pain - multilevel degenerative disc disease by MRI analysis most pronounced at L3-4 with epidural lipomatosis causing stenosis at L5-S1 Sick sinus syndrome (CMS/HCC V24, CMS/HCC V28) 0 01/09/2022 Overview (07/20/2024): Sick sinus syndrome status post permanent pacemaker implantation with a [employer] dual-chamber device. Assessment & Plan (07/20/2024 12:10 PM EST): Device working well on last check. Rate adjusted and patient feeling well. No changes for now. Continue to monitor through [facility] device clinic. Bruising 09/01/2021 Shortness of breath on exertion 07/18/2021 Atrial tachycardia (CMS/HCC V24) 10/23/2020 Bradycardia 10/23/2020 Diastolic dysfunction 10/23/2020 Overview (07/20/2024): Infiltrative cardiomyopathy workup negative Obesity 10/23/2020 Assessment & Plan (07/20/2024 12:10 PM EST): BMI 33.29. We discussed risk reduction through lifestyle choices including healthy diet, routine exercise and weight management. Could consider GLP1. ELIZABETH (obstructive sleep apnea) 10/23/2020 A-fib (CMS/HCC V24, CMS/HCC V28) 06/20/2020 Overview (07/20/2024): November 2019 status post ablation May 2021 Watchman device February 2024 status post AV brittany ablation Assessment & Plan (02/13/2025 5:44 PM EDT): Patient has undergone cardioversion and ablation therapy. She has an atrial paced rhythm with effective capture as well as AV sequential pacing. She is maintained on low-dose aspirin alone. She has had a Watchman procedure with an effective seal over the left atrial appendage. Orders: ECG 12 lead Transthoracic echocardiogram (TTE) complete with PRN contrast, bubble, strain, and 3D order panel; Future Assessment & Plan (07/20/2024 12:10 PM EST): Paroxysmal atrial fibrillation status post AF ablation, Watchman, pacemaker and then AV brittany ablation. Low burden since April. Given successful Watchman procedure and bleeding/bruising risk, now off AC therapy. Continue with carvedilol. Orders: ECG 12 lead Coronary artery disease invo lving samish coronary artery of samish heart without angina pectoris 06/20/2020 Overview (07/20/2024): March 2012 - sustained an anterior wall myocardial infarction and underwent stenting of a critical LAD artery and diagonal artery lesion; had significant left ventricular systolic dysfunction which eventually normalized following medical therapy and revascularization December 2023 transesophageal echocardiogram showed preserved left ventricular systolic function LVEF 55 to 60% with normal regional wall motion, [...] excrescence, mild to moderate tricuspid regurgitation with borderline to mild pulmonary hypertension and no other significant findings Assessment & Plan (02/13/2025 5:44 PM EDT): History of remote LAD and diagonal artery PCI in the setting of threatened anterior infarction. No active angina. Continue secondary prevention. Orders: ECG 12 lead Assessment & Plan (07/20/2024 12:10 PM EST): Catheterization in 2011 showed critical LAD artery and diagonal artery lesion status post stenting. Echocardiogram from December 2023 showed preserved LV systolic function LVEF 55-60% with no RWMAs. No anginal symptoms. Continue with aspirin, rosuvastatin, and carvedilol. We discussed risk reduction through lifestyle choices including healthy diet, routine exercise and weight management. HTN (hypertension) 06/20/2020 Assessment & Plan (02/13/2025 5:44 PM EDT): Well controlled. No change. Orders: ECG 12 lead Assessment & Plan (07/20/2024 12:10 PM EST): Controlled. Continue with carvedilol. Hyperlipidemia 06/20/2020 Assessment & Plan (02/13/2025 5:44 PM EDT): Tolerating med Rx. Orders: ECG 12 lead Assessment & Plan (07/20/2024 12:10 PM EST): Continue with rosuvastatin. Needs updated lipid panel with next routine labs. Encounters Date Type Department Care Team Description 02/13/2025 4:35 PM EDT Ancillary Procedure [facility] [address] [place] [address] Arrived 02/13/2025 2:30 PM EDT Office Visit [facility] [address] [place] [address] [address] [place] [phone] Angel Fishman MD Atrial fibrillation, unspecified type (CMS/HCC V24, [facility] V28) (Primary Dx); Coronary artery disease involving samish coronary artery of samish heart without angina pectoris; Hypertension, unspecified type; Orthostatic hypotension; Hyperlipidemia, unspecified hyperlipidemia type; Nonrheumatic tricuspid valve regurgitation; Nonrheumatic aortic valve stenosis 02/07/2025 Telephone [facility] [address] [place] [address] [place] [phone] Angel Fishman MD from Last 3 Months Immunizations Immunization Administration Dates Next Due Pfizer SARS-CoV-2 COVID-19, mRNA, LNP-S, preservative free 02/13/2021,11/20/2020,07/14/2020 Medical History Medical History Date Comments TYLER (acute kidney injury) (CMS/HCC V24) DX:TYLER (acute kidney injury) ([facility]) Anxiety and depression DX:Anxiet y and depression Orthostasis DX:Orthostasis UTI (urinary tract infection) DX :UTI (urinary tract infection) Lumbar radiculopathy DX:Lumbar r adiculopathy Lumbar spinal stenosis DX:Lumbar spinal stenosis; COMMENT: STATUS POST DECOMPRESSIVE SURGERY Chronic back pain DX:Chronic adelaide k pain GERD (gastroesophageal reflux disease) DX:GERD (gastroesophageal reflux disease) Social History Tobacco Use Types Packs/Day Years [...] on file Sexual Orientation Not on file Obstetrics History Last Filed Vital Signs Vital Sign Reading [...] Mass Index 35.06 02/13/2025 2:22 PM EDT Plan of Treatment Upcoming Encounters Date Type Department Care Team (Late st Contact Info) Description 07/09/2025 2:00 PM EST Ancillary Procedure [facility] [address] [place] [address] 08/14/2025 2:30 PM EDT Ancillary Procedure [facility] [address] [place] [address] Health Maintenance Due Date Last Done Comments RSV Immunization Adult Patients (1 - 1-dose 75+ series) 01/11/2015 Cholesterol Screening (Lipid Panel) 04/25/2022 Falls Risk Assessment 04/25/2022 Medicare Annual Wellness Visit 04/25/2022 Social Influencers of Health Screening 04/25/2022 Depression Screening 05/17/2024 COVID-19 Vaccine ( season) 2025 02/20/2022, 08/27/2021, 02/13/2021, Additional history exists Influenza Vaccine (#1) 2025 , 03/10/2023, 02/16/2022, Additional history exists Hypertension/CHF/CAD Annual BMP Blood Test 12/28/2025 12/28/2024 DTaP,Tdap,and Td Vaccines (4 - Td or Tdap) 03/25/2031 03/25/2021, 03/25/2018, 03/20/2008 Osteoporosis Screening (Bone Density Screening) 06/19/2032 06/19/2022 MMR Vaccines Aged Out 12/06/2012, 11/04/2012 No lo nger eligible based on patient's age to complete this topic Pneumococcal Vaccine: 50+ Years Completed 03/13/2015, 03/07/2014, 03/12/2012, Additional history exists Zoster Vaccines Completed 08/12/2018, 05/18, 06/18/2008 HIB Vaccines Aged Out No longer eligi ble based on patient's age to complete this topic HPV Vaccines Aged Out No longer eligi ble based on patient's age to complete this topic Hepatitis A Vaccines Aged Out No long er eligible based on patient's age to complete this topic Hepatitis B Vaccines Aged Out No long er eligible based on patient's age to complete this topic IPV Vaccines Aged Out No longer eligi ble based on patient's age to complete this topic Meningococcal ACWY Vaccine Aged Out N o longer eligible based on patient's age to complete this topic Meningococcal B Vaccine Aged Out No l onger eligible based on patient's age to complete this topic RSV Immunization Patients Under 20 months Aged Out No longer eligible based on patient's age to complete this topic Varicella Vaccines Aged Out No longer eligible based on patient's age to complete this topic Medical Devices Implanted Type Area Digital Community Manager Device Identifier Shelf Expiration Date Model / Serial / Lot Pricilla 2272 Assurity Mri(Tm) [id number] Implanted:04/2020 by Angel Rios MD (Quantity not on file) Cardiac Pacemaker Left: Chest LUIS Refinder by [employer]- [employer] 2272 ASSURITY MRI(TM) / [id number] / Abbt-Stdoug Assurity Mri [id number] Implanted:04/2020 (Quantity not on file) Cardiac Pacemaker [employer]- [employer] ASSURITY MRI 2272 / [id number] / Device Charles Irene Flx Krista 20mm Bsci-Prnt [id number] - [id number] Implanted:Qty : 1 on 06/09/2021 by Angel Rios MD Left: Chest [employer] [id number] / [id number] / Procedures Procedure Name Priority Date/Time Associated Diagnosis Comments CARDIAC DEVICE CHECK- REMOTE- MURJ Routine 02/13/2025 4:30 PM EDT ECG 12-LEAD Routine 02/13/2025 2:36 PM EDT Atrial fibrillation, unspecified type (CMS/HCC V24, CMS/HCC V28) Coronary artery disease involving samish coronary artery of samish heart without angina pectoris Hypertension, unspecified type Orthostatic hypotension Hyperlipidemia, unspecified hyperlipidemia type [facility] DEXA AXIAL SKELETON Routine 06/19/2022 12:10 PM EST Encounter for screening for osteoporosis from Last 3 Months or Most Recently Relevant to Health Maintenance Results * Cardiac device check - Remote- MURJ (02/13/2025 4:30 PM EDT) Date Time Interrogation Session [id number] CV DEVICE CHECK Type Interrogation Session Remote Scheduled CV DEVICE CHECK Implantable Pulse Generator Digital Community Manager [employer] CV DEVICE CHECK Implantable Pulse Generator Type IPG CV DEVICE CHECK Implantable Pulse Generator Model 2272 Assurity MRI(TM) CV DEVICE CHECK Implantable Pulse Generator Serial Number [id number] CV DEVICE CHECK Implantable Pulse Generator Implant Date 20191227 CV DEVICE CHECK Battery Remaining Percentage 46.00 CV DEVICE CHECK Battery Remaining Longevity 47.0 CV DEVICE CHECK Battery Voltage 2.980 CV D EVICE CHECK Battery FINANCE ADMINISTRATOR Trigger 2.600 CV DEVICE CHECK Battery Status Middle of Service CV DEVICE CHECK Osito Statistic RA Percent Paced 56.00 CV DEVICE CHECK Osito Statistic RV Percent Paced 99.00 CV DEVICE CHECK Atrial Tachy Statistic AT/AF [place] Percent 1.00 CV DEVICE CHECK Lead Channel [...] Heart Rate Histograms reviewed Narrative Procedure Note Angel Rios MD - 02/13/2025 IMPRESSION: Normal Remote: With Events * Normal Device Function * Events or Alerts: 11 * AF episodes rate controlled stable burden * Battery: Battery is at 46%, 3.92 yrs * Sensing, impedance and thresholds reviewed * Programmed parameters reviewed * Presenting rhythm reviewed * Heart Rate Histograms reviewed us Angel Rios MD CV IMPLANTABLE CARDIAC DEVICE PROCEDURES Final Result * ECG 12 lead (02/13/2025 2:36 PM EDT) Ventricular Rate ECG 60 BPM GEMUSE Atrial Rate 60 BPM GEMUSE P-R Interval 168 ms GEMUSE QRS Duration 144 ms GEMUSE Q-T Interval 486 ms GEMUSE QTc 486 ms GEMUSE P Wave [place] 26 degrees GEMUSE R [place] 78 degrees GEMUSE T [place] 72 degrees GEMUSE ECG Interpretation AV dual-paced rhythm Abnormal ECG When compared with ECG of 20-JUL-2024 11:22, No significant change was found Confirmed by MD NATAN, ANGEL ([id number]) on 02/13/2025 5:44:46 PM GEMUSE 02/13/2025 2:36 PM EDT 02/13/2025 5:44 PM EDT us Angel Fishman MD ECG ORDERABLES Final Result GEMUSE * LEAH DEXA AXIAL SKELETON (06/19/2022 12:10 PM EST) Anatomical Region Laterality Modality Mammography 06/19/2022 11:3 0 AM EST Narrative 06/19/2022 12:10 PM EST [facility] Diagnostic Imaging Department [address] [place] [address] Patient: FRANCISCO JAVIERJUVENCIO Tayla /Age/Sex: 1940 - 82 - F Unit#: [id number] Location/Status: [facility]emonic[facility] Ordering Physician: RADHA TIERNEY Leah Dexa Axial Skeleton - 06/19/22 7 HISTORY: The patient is an 82-year-old postmenopausal female with clinical concern for metabolic bone disease. FINDINGS: Dual energy x-ray absorptiometry of the lumbar spine and femurs is performed. The mean bone mineral density at L1-L4 is 1.315 gm/cm2 which is 111% of that of young normals and 125% of that of age matched controls. This yields a T-score of 1.1 and a Z-score of 2.2 and there is therefore no evidence of osteoporosis or osteopenia here. The mean bone mineral density of the femurs bilaterally is 0.965 gm/cm2 which is 96% of that of young normals and 119% of that of age matched controls. This yields a T-score of -0.3 and a Z-score of 1.2 and there is therefore no evidence of osteoporosis or osteopenia here. However, the T-score of the right femoral neck is -1.3 and that of the left femoral neck is -1.2 which is diagnostic of osteopenia. IMPRESSION: 1. Osteopenia. There has been an increase of 11.7% in bone mineral density in the lumbar spine since the prior examination of 03/16/2007. There has been a decrease of 7.3% in bone mineral density in the right femur and a decrease of 7.4% in bone mineral density in the left femur. 2. FRAX analysis yields a 10-year probability of major osteoporotic fracture of 11.3% and a 10-year probability of hip fracture of 2.6%. Code 46137 Dictating Physician: YARIEL CASTRO MD Electronically Signed by: YARIEL CASTRO MD Dic Date/Time: 06/19/22 1208 Sign date/Time: 06/19/22 1210 Procedure Note Yariel Castro MD - 06/18/2023 [facility] Diagnostic Imaging Department [address] [place] [address] Patient: JUVENCIO SUTTON Tayla Davis/Age/Sex: 1940 82 - F Unit#: [id number] Location/Status: [facility] Mnemonic/Ordering Site:[facility] Ordering Physician: RADHA TIERNEY Leah Dexa Axial Skeleton - 06/19/22 - 1204 HISTORY: The patient is an 82-year-old postmenopausal female withclinical concern for metabolic bone disease. FINDINGS: Dual energy x-ray absorptiometry of the lumbar spine and femursis performed. The mean bone mineral density at L1-L4 is 1.315 gm/cm2 which is111% of that of young normals and 125% of that of age matched controls. Thisyields a T-score of 1.1 and a Z-score of 2.2 and there is therefore no evidenceof osteoporosis or osteopenia here. The mean bone mineral density of the femurs bilaterally is 0.965 gm/aq4mordb is 96% of that of young normals and 119% of that of age matched controls.This yields a T-score of -0.3 and a Z-score of 1.2 and there is therefore noevidence of osteoporosis or osteopenia here. However, the T-score of the rightfemoral neck is -1.3 and that of the left femoral neck is -1.2 which is diagnosticof osteopenia. IMPRESSION: 1. Osteopenia. There has been an increase of 11.7% in bone mineraldensity in the lumbar spine since the prior examination of 03/16/2007. There hasbeen a decrease of 7.3% in bone mineral density in the right femur and a decreaseof 7.4% in bone mineral density in the left femur. 2. FRAX analysis yields a 10-year probability of major osteoporoticfracture of 11.3% and a 10-year probability of hip fracture of 2.6%. 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 Health Care Decision (hx) 10/29/2023 AD READ DIRECTIVE Health Care Decision (hx) 10/13/2023 HE ALTH CARE PROXY Health Care Decision (hx) 10/13/2023 HE ALTH CARE PROXY Health Care Decision (hx) 10/13/2023 HE ALTH CARE PROXY Health Care Decision (hx) 10/13/2023 HE ALTH CARE PROXY Health Care Decision (hx) 05/13/2010 AD READ DIRECTIVE Health Care Decision (hx) 05/13/2010 AD READ DIRECTIVE Health Care Decision (hx) 05/13/2010 AD READ DIRECTIVE Health Care Decision (hx) 05/13/2010 AD READ DIRECTIVE Health Care Decision (hx) 05/13/2010 AD READ DIRECTIVE Health Care Decision (hx) 05/13/2010 AD READ DIRECTIVE Health Care Decision (hx) 05/13/2010 AD READ DIRECTIVE Health Care Decision (hx) 05/13/2010 AD READ DIRECTIVE Health Care Decision (hx) 05/13/2010 AD READ DIRECTIVE Health Care Decision (hx) 05/13/2010 AD READ DIRECTIVE Health Care Decision (hx) 05/13/2010 AD READ DIRECTIVE Health Care Decision (hx) 05/13/2010 AD READ DIRECTIVE Health Care Decision (hx) 05/13/2010 AD READ DIRECTIVE Health Care Decision (hx) 05/13/2010 AD READ DIRECTIVE Health Care Decision (hx) 05/13/2010 AD READ DIRECTIVE Health Care Decision (hx) 05/13/2010 AD READ DIRECTIVE Health Care Decision (hx) 05/13/2010 AD READ DIRECTIVE Care Teams First Calender Worker Relationship Specialty Start Date End Date Humera Mcgowan MD [address] [place] [id number] PCP - General Internal Medicine 02/09/25
--- OUTSIDE RECORDS SUMMARY | 2025-02-16 15:19 | XMS_ITS | Clinical Summary ---
Author Organization [facility], Address [address] [place] [address] [place] [address] Phone Care Team Providers Care Lithographers Printer Name Role Phone Humera Kim MD Primary Care Provider Allergies Active Allergy Reactions Criticality Noted Date Comments Codeine Other (see comments) 03/04/2020 Niacin Other (see comments) 03/04/2020 Sulfa Antibiotics Other (see comments) 03/04/20 20 Medications rosuvastatin (CRESTOR) 10 MG tablet Take 10 mg by mouth 1 (one) time each day Active meclizine (ANTIVERT) 25 MG tablet Take 1 tablet by mouth 3 (three) times a day Active levothyroxine (SYNTHROID, LEVOTHROID) 125 MCG tablet Take 125 mcg by mouth 1 (one) time each day Active escitalopram (LEXAPRO) 5 MG tablet Take 2 tablets by mouth daily Active diphenoxylate-atr opine (LOMOTIL) 2.5-0.025 MG per tablet Take 2 tablets by mouth 4 (four) times a day Active dexlansoprazole (Dexilant) [address] capsule Take 30 mg by mouth 1 (one) time each day Active buPROPion SR (WELLBUTRIN SR) 100 MG 12 hr tablet Take 1 tablet by mouth 1 (one) time each day Active acetaminophen (TYLENOL) 500 MG tablet Take 2 tablets by mouth 4 (four) times a day Active Cobalamin Combinations (Vitamin M02-Hzeiz Acid) 500-400 MCG tablet Take 1 tablet by mouth 1 (one) time each day Active CALCIUM-VITAMIN A-VITAMIN D PO Take by mouth A ctive carvedilol (COREG) 25 MG tablet Take 25 mg by mouth in the morning and 25 mg in the evening. Take with meals. 1 Active ipratropium (ATROVENT) 0.06 % nasal spray 1 Active nitroglycerin (NITROSTAT) 0.[address] 0.3 mg under the tongue every 5 (five) minutes if needed for chest pain Active clopidogrel (PLAVIX) 75 MG tablet Take 75 mg by mouth 1 (one) time each day Active cyancobalamine (VITAMIN B-12) 500 MCG tablet Take 500 mcg by mouth 1 (one) time each day Active celecoxib (CeleBREX) 200 MG capsule Take 200 mg by mouth in the morning and 200 mg in the evening. Active traMADol (Ultram) 50 MG tablet Take 1 tablet (50 mg total) by mouth every 8 (eight) hours if needed for moderate pain 20 tablet 5 Active Active Problems Problem Noted Date Diagnosed Date Obstructive sleep apnea syndrome 12/01/2022 Overview (12/01/2022): on CPAP Obese class II 12/01/2022 Irritable bowel syndrome 12/01/2022 Overview (12/01/2022): With diarrhea. follows with GI Stage 3a chronic kidney disease 03/04/2020 Overview (05/20/2020): Update for Diagnosis Load Essential hypertension 03/04/2020 Resolved Problems Problem Noted Date Diagnosed Date Resolved Date Hyperkalemia 03/04/2020 10/01/2020 Hyperlipidemia 03/04/2020 10/01/2020 Encounters Date Type Department Care Team Description 01/01/2025 Orders Only [facility], [address] [place] [address] Riley Honeycutt MD 01/01/2025 Orders Only [facility], [address] [place] [address] Dana Small Stage 3a chronic kidney disease (HCC) (Primary Dx) 01/01/2025 Documentation Only [facility], [address] [place] [address] Dana Small 11/21/2024 10:50 AM EDT Office Visit [facility], [address] [place] [address] Riley Honeycutt MD Stage 3a chronic kidney disease (HCC) (Primary Dx) from Last 3 Months Immunizations Immunization Administration Dates Next Due Influenza Whole 03/11/2021, 0,02/21/2018,02/16/2017 ,03/05/2014,04/19/2012 MMR 12/06/2012,11/04/2012 Pfizer SARS-COV-2 02/13/2021,11/20/2020,07/14/19 21 Pneumococcal Conjugate 13-Valent 03/13/2015 Pneumococcal Polysaccharide 03/07/2014, 2,01/30/2003 Td, Unspecified 03/20/2008 Tdap 03/25/2021,03/25/2021,03/25/2018 Zoster 08/12/2018,06/18/2008 Family History Medical History Relation Comments Cancer Father lung Cancer Mother aunt breast Hypertension Mother Relation Status Comments Father Mother Social History Tobacco Use Types Packs/Day Years Used Date Smoking Tobacco: Former Smokeless Tobacco: Never Comments Unknown Sex and Gender Information Value Date Recorded Sex Assigned at Not on file Legal Sex Female 4:31 PM EST Gender Identity Not on file Sexual Orientation Not on file Last Filed Vital Signs Vital Sign Reading Time Taken Comments Blood Pressure 121/64 04/27/2022 1:25 PM EST Pulse 65 04/27/2022 1:25 PM EST Temperature - - Respiratory Rate - - Oxygen Saturation - - Inhaled Oxygen Concentration - - Weight 96.6 kg (213 lb) 05/08/2021 2:41 PM EST Height 157.5 cm (5' 2 ) 03/05/2020 10:07 AM EDT Body Mass Index 38.96 03/05/2020 10:07 AM EDT Plan of Treatment Upcoming Encounters Date Type Department Care Team (Late st Contact Info) Description 02/20/2025 3:10 PM EDT Office Visit [facility], [address] [place] [address] Riley Honeycutt MD [address] [place] [address] [place] [address] [place] [phone] Health Maintenance Due Date Last Done Comments Influenza Vaccine (#1) 2025 , 02/15/2020, 02/21/2018, Additional history exists Pneumococcal Vaccine: 50+ Years Completed 03/13/2015, 03/07/2014, 03/12/2012, Additional history exists Pneumococcal Vaccine: Peds (0 to 5 Years) and At-Risk Patients (6 to 49 Years) Discontinued 03/13/2015, 03/07/2014, 03/12/2012, Additional history exists Hepatitis B Vaccine Aged Out No longe r eligible based on patient's age to complete this topic Procedures Procedure Name Priority Date/Time Associated Diagnosis Comments URINE ALBUMIN / CREATININE RATIO Routine 01/01/2025 10:35 AM EDT PHOSPHATE ( PHOSPHORUS) Routine 12/28/2024 11:19 AM EDT Stage 3a chronic kidney disease (HCC) CBC Routine 12/28/2024 11:19 AM EDT Stage 3a chronic kidney disease (HCC) BASIC METABOLIC PANEL Routine 12/28/2024 11:19 AM EDT Stage 3a chronic kidney disease (HCC) from Last 3 Months Results * Urine Albumin / Creatinine Ratio (01/01/2025 10:35 AM EDT) Creatinine, Ur 42.7 Not Estab. mg/dL [facility] Albumin, Urine <3.0 Not Estab. ug/mL [facility] Albumin/Creatin ine Ratio <7 0 - 29 mg/g creat [facility] Comment: Normal: 0 - 29 Moderately increased: 30 - 300 Severely increased: >300 01/01/2025 10:3 5 AM EDT 01/01/2025 us Riley Honeycutt MD LAB URINE ORDERABLES Final Re sult [facility] [address] [place] [address] * (ABNORMAL) CBC (12/28/2024 11:19 AM EDT) WBC 3.9 3.4 - 10.8 x10E3/uL [facility] RBC 4.03 3.77 - 5.28 x10E6/uL [facility] Hemoglobin 12.4 11.1 - 15.9 g/dL [facility] Hematocrit 39.8 34.0 - 46.6 % [facility] MCV 99(H) 79 - 97 fL [facility] MCH 30.8 26.6 - 33.0 pg [facility] MCHC 31.2(L) 31.5 - 35.7 g/dL [facility] RDW 12.7 11.7 - 15.4 % [facility] Platelets 259 150 - 450 x10E3/uL [facility] Blood Venous blood / Unknown 12/28/2024 11:19 AM EDT 12/28/2024 Riley Honeycutt MD LAB BLOOD ORDERABLES Final Re sult [facility] [address] [place] [address] * Phosphorus (12/28/2024 11:19 AM EDT) Phosphorus 3.7 3.0 - 4.3 mg/dL [facility] Blood Venous blood / Unknown 12/28/2024 11:19 AM EDT 12/28/2024 us Riley Honeycutt MD LAB BLOOD ORDERABLES Final Re sult [facility] [address] [place] [address] * (ABNORMAL) Basic Metabolic Panel (12/28/2024 11:19 AM EDT) Glucose 99 70 - 99 mg/dL [facility] BUN 14 8 - 27 mg/dL [facility] Sodium 141 134 - 144 mmol/L [facility] Chloride 104 96 - 106 mmol/L [facility] Bicarbonate (CO2) 22 20 - 29 mmol/L [facility] Calcium 9.7 8.7 - 10.3 mg/dL [facility] Creatinine 1.00 0.57 - 1.00 mg/dL [facility] eGFR CKD-EPI CR 2020 56(L) >59 mL/min/1.7 3 [facility] BUN/Creatinine Ratio 14 12 - 28 [facility] Potassium 5.0 3.5 - 5.2 mmol/L [facility] Blood Venous blood / Unknown 12/28/2024 11:19 AM EDT 12/28/2024 us Riley Honeycutt MD LAB BLOOD ORDERABLES Final Re sult [facility] [address] [place] [address] from Last 3 Months Insurance Medicare [facility] Care Teams Lithographers Printer Relationship Specialty Start Date End Date Humera Kim MD [address], [facility] [address] [place] [address] PCP - General Internal Medicine 12/02/22
--- NOTE | 2025-02-16 15:50 | MHC.OFFVISPS ---
Intake Intake Visit Reasons: depression Allergies codeine Allergy (Verified 12/27/23 13:46) Unconscious niacin Allergy (Verified 12/27/23 13:46) Redness of Skin Sulfa (Sulfonamide Antibiotics) Allergy (Verified 12/27/23 13:46) Itching NSAIDS (Non-Steroidal Anti-Inflamma Adverse Reaction (Verified 12/27/23 13:46) Unknown HPI- Psychiatric Chief Complaint: depression HPI Narrative: Patient is an 85-year-old female with a long history of dysthymia recurrent depression and interpersonal sensitivity. Patient had been doing quite well for an extended period of time despite multiple medical concerns that significantly impair her quality of life. She did have a couple that was taking care of her were getting paid but since has had a somewhat catastrophic reaction to feeling abandoned and rejected. Patient normally is on escitalopram 5 mg and Wellbutrin. The patient had been cared for by her caregiver Wei who was also her healthcare proxy and also acute her of her estate the patient had an appointment for 2 medical visits on the same day and her caregiver Wei was going to go down to [place] where his daughter was having an MRI. Patient became quite at and there was a discussion which she was told by her caregiver that her words his family come 1st he could not guarantee if a family member was ill that would go down to be a support. Patient this quite intensely felt that she was not paying care for that she was being abandoned the collected. Patient has since cycled down into a deeper depression thought she would be better off but denies active intent or plan.. Past Psychiatric History: Past history of recurrent depression for many years. Has been generally stable for the past number of years use to see Dr. Newman for medication management and Dr. Oscar Llamas for psychotherapy Mental Status Exam Mental Status Exam Patient Appearance: Well Grooomed Patient Orientation: Person, Place, Time and Situation Level of Consciousness: Awake and Appropriate Patient Behavior: Appropriate Behavior Comments: Sad and anxious looking Mood Description: Depressed and Blunted Affect Description: Appropriate, Constricted, Depressed, Angry and Apprehensive Patient Cognition Impaired: No Ability to Follow Directions: Good Speech Pattern: Clear Memory Description: Intact Hallucinations: None Delusions: Not Present Thought Process: Intact and Rumination Thought Content: positive for Goal Oriented, positive for Preoccupation, negative for Suicidal Ideation or negative for Homicidal Ideation Depressive Symptoms: Increased Anxiety, Increased Irritability, Hopelessness, Increased Fatigue, Thoughts of /Suicide, Loss of Energy and Difficulty Concentrating Judgement: Fair Judgement and Insight: Patient feeling quite rejected and abandoned difficult time seeing that there may be another perspective that would include Wei caring and supporting her but also wanting to be present for his daughter Assessment and Plan Assessment & Plan (1) Major depressive disorder, recurrent episode with anxious distress: Status: Acute Code(s): F33.9 - Major depressive disorder, recurrent, unspecified Plan Patient will try and increase escitalopram to 10 mg daily continue Wellbutrin patient now feeling cut off from her pentecostal feeling abandoned embarrassed that she is no longer close with Wei and his or members of the pentecostal. She did speak with the herbicide sprayer. Strongly urged the patient be seen in individual counseling in addition to this engineering writer. Patient does have a history of rejection sensitivity when offered alternative ways of looking at this or other potential options patient does states PRASANTH stubborn [place]. Patient is finding different person to take her to medical appointments strongly encourage her returning to the [place] mormon pentec[employer] which he has been going to regularly. Medications: Changed From escitalopram oxalate 5 mg PO DAILY 90 tabs 1RF To escitalopram oxalate 10 mg (2 x 5 mg) PO DAILY 90 tabs 1RF Counseling and coordination of Care Details-Self Mgmt counseling: Trying to help patient problem solve current situation and deal with current issues brought up by interpersonal conflict with couple who was her caregiver.. Unclear if this relationship is salvageable Medication management counseling: Effectiveness, Side effects and Dosing range Diagnosis and Prognosis Counseling: Impact of diagnosis on life functions, Problematic behaviors secondary to diagnosis and Adequacy of current interventions Details-Diagnosis/Prognosis counseling: Patient given the number for psychologist in [facility] that specializes in Geriatric psychology patient to call if feeling unsafe she would never hurt herself elder services may also be helpful. Strongly urged [facility] [place] Details: I spent [55] minutes reviewing the record, seeing the patient and documenting in the medical record. Counseling provided to the patient/caregiver as outlined below. Addressed patient/caregiver concerns regarding current medication regime including effective adherence. Addressed patient/caregiver concerns regarding diagnosis and prognosis including accuracy of diagnosis, prognosis over time, impact of diagnosis. Addressed patient/caregiver concerns regarding impact of recent stressors. [facility] Medical History History of cardioversion Diarrhea SOB (shortness of breath) IBS (irritable bowel syndrome) Arthritis Obesity Depression GERD (gastroesophageal reflux disease) Thyroid disease Hyperlipidemia HTN (hypertension) Pulmonary hypertension Sleep apnea Opacity of lung on imaging study Hx of cardiac pacemaker Sick sinus syndrome Bradycardia Atrial tachycardia Presence of Watchman left atrial appendage closure device Myocardial infarction CAD (coronary artery disease) Atrial fibrillation and flutter Major depressive disorder, recurrent episode, in partial remission Surgical History H/O colonoscopy History of hemorrhoidectomy Hx of total knee replacement Hx of cataract extraction Hx of cholecystectomy Hx of carpal tunnel repair History of back surgery S/P placement of cardiac pacemaker H/O cardiac radiofrequency ablation History of coronary artery stent placement Social History Are you a primary medicare interviewer to a significant other at home: No Do you presently have visiting nurse or other home services: No Patient Tobacco Use Status: Former Tobacco user service: No Social History: Patient lives alone she is retired dealing with multiple medical issues has sister supports from the pentecostal /neighbor Substance History: none Trauma History: none Coding Level of Care Code Est Pt Level 4 (59468) Therapy 30m w/E&M (98263) Diagnoses Major depressive disorder, recurrent episode with anxious distress F33.9
== END 2025-02-16 15:17 | disposition home or self-care (01) ==
LOC: HO.HOP 15:16
PROVIDERS: PCP Internal Medicine; Visit Provider Psychiatry & Neurology Psychiatry
DX: F33.9 Major depressive disorder, recurrent, unspecified (principal)
CPT/HCPCS: 90833; 99214

== ENCOUNTER → 2025-02-16 15:16 | Outpatient (BNVA) | payer MEDICARE, OTHER, SELFPAY | PROVIDERS: PCP Internal Medicine; Visit Provider Psychiatry & Neurology Psychiatry | DX: F33.9 Major depressive disorder, recurrent, unspecified (principal); Z79.899 Other long term (current) drug therapy | CPT/HCPCS: 99212 ==